=== PATIENT | female | born 1950 | race Caucasian/White ===

== ENCOUNTER 2019-11-28 08:52 | Outpatient (CLI) | payer MEDICARE, SELFPAY ==
--- NOTE | ~2019-11-28 | DEXA_ITS ---
BMD(1) Young-Adult(2) Age-Matched(3) Region (g/cm2) T-score Z-score WHO Classification L1 0.955 -1.5 0.4 Osteopenia L2 1.005 -1.7 0.2 Osteopenia L3 1.137 -0.6 1.3 Normal L4 1.167 -0.4 1.5 Normal L1-L4 1.071 -1.0 0.9 Normal Trend: L1-L4 Change vs Change vs Measured Age BMD(1) Baseline Previous Date [age]) (g/cm2) (%) (%) 11[age]28/2019 [age] 1.071 19.8* 4.9* 10[age]09/2017 66.8 1.021 14.2* 14.2* 04[birth year]19/2012 [age] 0.894 baseline - * - Indicates significant change based on 95% confidence interval. 1 - Statistically 68% of repeat scans fall within 1SD (+- 0.010 g/cm2 for AP Spine L1-L4) 2 - [place] (Combined NHANES (ages 20-30) / [place] (ages 20-40)) AP Spine Reference Population (v112) 3 - Matched for Age, Weight (females 25-100 kg), Ethnic 11 - World Health Organization - Definition of Osteoporosis and Osteopenia for Women: Normal = T-score at or above -1.0 SD; Osteopenia = T-score between -1.0 and -2.5 SD; Osteoporosis = T-score at or below -2.5 SD; (WHO definitions only apply when a young healthy Women reference database is used to determine T-scores.) Printed: 11/28/2019 9:49:24 AM (13.60)76:3.00:50.00:12.0 0.00:9.18 0.60x1.05 19.6:%Fat=29.0% 0.00:0.00 0.00:0.00 Filename: [id number] Scan Mode: Standard;OneScan 37.0 Apprity [id number] BMD(1) Young-Adult(2,7) Age-Matched(3) Region (g/cm2) T-score Z-score WHO Classification Neck Left 0.824 -1.5 0.3 Osteopenia Right 0.812 -1.6 0.2 Osteopenia Mean 0.818 -1.6 0.2 Osteopenia Difference 0.012 -0.1 -0.1 - Total Left 0.886 -1.0 0.7 Normal Right 0.802 -1.6 0.0 Osteopenia Mean 0.844 -1.3 0.3 Osteopenia Difference 0.084 -0.7 -0.7 - Hip [place] Length Comparison (mm) (Right = 97.0 mm) (Mean = 101.3 mm) (Left = 97.4 mm) Trend: Total Mean Change vs Change vs Measured Age BMD(1) Baseline Previous Date [age]years) (g/cm2) (%) (%) 11/28/2019 68.9 0.844 -1.6 -1.6 04/19/2012 61.3 0.858 baseline - 1 - Statistically 68% of repeat scans fall within 1SD (+- 0.010 g/cm2 for DualFemur Total) 2 - [place] (Combined NHANES (ages 20-30) / [place] (ages 20-40)) Femur Reference Population (v112) 3 - Matched for Age, Weight (females 25-100 kg), Ethnic 7 - DualFemur Total T-score difference is 0.7. Asymmetry is Mild. 11 - World Health Organization - Definition of Osteoporosis and Osteopenia for Women: Normal = T-score at or above -1.0 SD; Osteopenia = T-score between -1.0 and -2.5 SD; Osteoporosis = T-score at or below -2.5 SD; (WHO definitions only apply when a young healthy Women reference database is used to determine T-scores.) Printed: 11/28/2019 9:49:24 AM (13.60); Filename: [id number]; Right Femur; 17.5:%Fat=30.4%; Neck Angle (deg)= 60; Scan Mode: Standard 37.0 uGy; Left Femur; 16.5:%Fat=33.9%; Neck Angle (deg)= 64; Scan Mode: Standard 37.0 uGy [employer] [id number] Dear Isai Ly, Your patient Emilia Simpson completed a BMD test on 11/28/2019 using the [employer] DXA System (analysis version: 13.60) manufactured by [employer]. The following summarizes the results of our evaluation. PATIENT BIOGRAPHICAL: Name: Emilia Simpson
--- NOTE | ~2019-11-28 | MM_ITS ---
EXAMINATION: MM screening kyle BI w maddie HISTORY: Screening mammogram TECHNIQUE: Craniocaudal and mediolateral oblique 3-D tomosynthesis images were obtained and synthetic 2-D images were generated. CAD analysis was submitted and interpreted. COMPARISON: 11/25/2018, 11/05/2017, 09/16/2016 bilateral digital screening mammogram examinations BREAST PARENCHYMAL COMPOSITION: There are scattered areas of fibroglandular density. FINDINGS: There is no evidence of suspicious mass, calcification, or architectural distortion to sugg est malignancy in either breast. There has been no suspicious interval change. IMPRESSION: 1. No mammographic evidence of malignancy. 2. Recommend routine screening mammography in one year. BI-RADS Category 1: Negative Reviewed, dictated and finalized at location A.
== END 2019-11-28 08:53 | disposition home or self-care (01) ==
PROVIDERS: PCP Internal Medicine; Visit Provider Internal Medicine
DX: Z12.31 Encounter for screening mammogram for malignant neoplasm of breast (principal); M85.80 Other specified disorders of bone density and structure, unspecified site; Z78.0 Asymptomatic menopausal state
CPT/HCPCS: 77063; 77067; 77080

== ENCOUNTER 2019-12-21 09:48 | Outpatient (RCR) | payer MEDICARE, SELFPAY ==
--- NOTE | 2019-12-21 11:26 | PTOPEVAL ---
Thank you for referring Emilia Simpson to [facility].? The patient is scheduled to be seen for therapy? ____x/week for ___ weeks. Please review, sign, date and return this plan of care JJ. I agree with and certify that the following plan of care is medically necessary. Referring Physician Date Admitting Provider: Attending Provider: Isai Ly MD Referring Provider: *PT Outpatient Evaluation Start: 12/21/19 10:05 Freq: Status: Active Protocol: Document 12/21/19 10:05 VIOLETTE (Rec: 12/21/19 11:21 [email or web address]) Therapy Assessment Status Assessment Status Assessment Status Evaluation Evaluation Information Problem Diagnosis bilateral hip pain Onset 12/21/19 Subjective Information Pt. reports that she has had Query Text:As Reported By Patient/ hip and back pain for several Family years. She reports that she has low bone density and is borderline osteoporosis. She states that she has trouble crossing her legs, due to described pain at the greater trochanter. She describes no pain across the low back. 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 she states that her hip pain described on the trochanter is what is most problematic and is getting more severe. She states that her goal is to decrease her pain. Pain Assessment Pain Scale Pain Scale Used Numeric (1 - 10) Self Report Pain Assessment Bilateral Hip(s) Reported Pain Level 6 Lowest Pain Intensity 0 Greatest Pain Intensity 6 Pain Aggravating Factors Walking,Weight Bearing/ Standing Pain Score Pain Score 6: Self Report Cervical and Lumbar ROM Lumbar ROM Lumbar Flexion Active Floor Query Text:Hands to: Lumbar Extension (0-40) 30 Query Text:Active in Degrees Lumbar Lateral Flexion Right (0-40) 35 Query Text:Active in Degrees Lumbar Lateral Flexion Left (0-40) 35 Query Text:Active in Degrees Lower Extremity Muscle Strength Testing General Lower Extremity Strength Gross Lower Extremity Strength bilateral hip flexion 4+/5, right hip abduction 3+/5, left hip abduction 4-/5, bilateral
--- NOTE | 2019-12-21 17:28 | PTOPEVAL ---
Thank you for referring Emilia Simpson to [facility].? The patient is scheduled to be seen for therapy? ____x/week for ___ weeks. Please review, sign, date and return this plan of care JJ. I agree with and certify that the following plan of care is medically necessary. Referring Physician Date Admitting Provider: Attending Provider: Isai Ly MD Referring Provider: *PT Outpatient Evaluation Start: 12/21/19 10:05 Freq: Status: Active Protocol: Document 12/21/19 10:05 VIOLETTE (Rec: 12/21/19 11:21 [email or web address]) Therapy Assessment Status Assessment Status Assessment Status Evaluation Evaluation Information Problem Diagnosis bilateral hip pain Onset 12/21/19 Subjective Information Pt. reports that she has had Query Text:As Reported By Patient/ hip and back pain for several Family years. She reports that she has low bone density and is borderline osteoporosis. She states that she has trouble crossing her legs, due to described pain at the greater trochanter. She describes no pain across the low back. 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 she states that her hip pain described on the trochanter is what is most problematic and is getting more severe. She states that her goal is to decrease her pain. Pain Assessment Pain Scale Pain Scale Used Numeric (1 - 10) Self Report Pain Assessment Bilateral Hip(s) Reported Pain Level 6 Lowest Pain Intensity 0 Greatest Pain Intensity 6 Pain Aggravating Factors Walking,Weight Bearing/ Standing Pain Score Pain Score 6: Self Report Cervical and Lumbar ROM Lumbar ROM Lumbar Flexion Active Floor Query Text:Hands to: Lumbar Extension (0-40) 30 Query Text:Active in Degrees Lumbar Lateral Flexion Right (0-40) 35 Query Text:Active in Degrees Lumbar Lateral Flexion Left (0-40) 35 Query Text:Active in Degrees Lower Extremity Muscle Strength Testing General Lower Extremity Strength Gross Lower Extremity Strength bilateral hip flexion 4+/5, right hip abduction 3+/5, left hip abduction 4-/5, bilateral
== END 2020-01-26 08:52 | disposition home or self-care (01) ==
LOC: CHSPT 09:48
PROVIDERS: PCP Internal Medicine; Visit Provider Internal Medicine
DX: M25.552 Pain in left hip (principal); M25.551 Pain in right hip
CPT/HCPCS: 97014; 97110; 97161; G0283

== ENCOUNTER → 2020-06-25 00:17 | Outpatient (CLI) | payer MEDICARE, SELFPAY ==
[2020-06-25 19:33] LABS: SARS-CoV-2 RNA PCR Negative
== END ==
PROVIDERS: PCP Internal Medicine; Visit Provider Surgery
DX: Z01.812 Encounter for preprocedural laboratory examination (principal); Z20.822 Contact with and (suspected) exposure to COVID-19
CPT/HCPCS: C9803; U0003; U0005

== ENCOUNTER 2020-06-28 01:29 | Day surgery (SDC) | payer MEDICARE, SELFPAY ==
[2020-06-12 14:58] VITALS: BMI 22.8
[2020-06-28] MEDS: LACTATED RINGERS 1,000 ML 150 ML IV CONT (07:48)
[2020-06-28 07:50] VITALS: BP 143/74; PULSE 64; RESP 16; TEMP 36.4; O2SAT 100; BMI 24.8
--- NOTE | 2020-06-28 08:36 | WPDANESEPPF ---
Anes - Initial Pre Proc Eval Procedure: Operation Date: 06/28/20 08:45 Proposed Procedures p Esophagogastroduodenoscopy - Francisco J Ibarra DO Date/Time: 06/28/20 08:36 Surgeon: Francisco J Ibarra DO Pre Op Diagnosis: dysphagia Patient Data Age: 69 Gender: F Height: 5 ft 1 in Weight: 59.6 kg Last Vital Signs Temp 36.4 C L 06/28/20 07:50 Pulse 64 06/28/20 07:50 Resp 16 06/28/20 07:50 BP 143/74 H 06/28/20 07:50 Pulse Ox 100 06/28/20 07:50 Allergies Allergy/AdvReac Type Severity Reaction Status Date / Time No Known Allergies Allergy Verified 06/28/20 07:49 Home Medications Medication Instructions Recorded Confirmed Type estradiol 1 mg PO DAILY 06/12/20 06/12/20 History ibuprofen 600 mg PO DAILY PRN 06/12/20 06/12/20 History lisinopril-hydrochlorothiazide 1 tablet PO DAILY 06/12/20 06/12/20 History pravastatin 10 mg PO DAILY 06/12/20 06/12/20 History Patient hx anesthesia problems: post op nausea/vomiting Family hx anesthesia problems: none PMFSH Past Medical History Medical History Hyperlipidemia Hypertension Social History Social History Smoking status: Never smoker Alcohol intake: never Substance use type: does not use Living arrangements: with family Spiritual care concerns: No Anes - Eval Final PreProcedure Day of Procedure 06/28/20 08:36 Patient weight: normal Heart: regular rate and rhythm Lungs: clear to auscultation Airway: Mallampati scale class II Neurological: alert and oriented Last oral intake: >/= 8 hours ASA classification: II Emergent: no Anesthetic plan: proceed Anesthesia type and monitoring: general GIVS and standard monitoring Informed Consent: The patient's anesthetic plan and its attendant risks and benefits were discussed with the patient/family/POA. Questions were solicited and answers provided to the satisfaction of the patient/family/POA.
--- NOTE | 2020-06-28 08:50 | PM.IMHP ---
H&P: HPI History of Present Illness Date/Time: 06/28/20 08:50 Chief Complaint: Dysphagia Narrative: Emilia Simpson is a 69 year old female who presents with dysphagia with solids and liquids over the past month. She says if feels like she got a pill stuck, but she continues to have these symptoms. She denies hematemesis. Review of Systems Review of Systems: All systems reviewed & are unremarkable except as noted in HPI and below Constitutional: Constitutional: Denies chills, Denies fever(s), Denies headache(s) and Denies weight loss Eyes: Eyes: Denies change in vision ENT: Denies dizziness, Denies headache(s), Denies neck mass and Denies throat swelling Cardiovascular: Cardiovascular: Denies chest pain, Denies lightheadedness and Denies dyspnea Respiratory: Respiratory: Denies cough, Denies dyspnea and Denies wheezing Gastrointestinal: Gastrointestinal: Reports as per HPI, Denies nausea and Denies vomiting Genitourinary: Genitourinary: Denies hematuria and Denies dysuria Musculoskeletal: Musculoskeletal: Reports as per HPI Integumentary/Breasts: Skin/Breast: Reports as per HPI Neurologic: Denies dizziness and Denies headache(s) Allergic/Immunologic: Allergic/Immunologic: Denies throat swelling and Denies wheezing PMFSH Past Medical History Medical History Hyperlipidemia Hypertension Social History Social History Smoking status: Never smoker Alcohol intake: never Substance use type: does not use Living arrangements: with family Spiritual care concerns: No Meds Home Medications and Allergies Home Medications Medication Instructions Recorded Confirmed Type estradiol 1 mg PO DAILY 06/12/20 06/12/20 History ibuprofen 600 mg PO DAILY PRN 06/12/20 06/12/20 History lisinopril-hydrochlorothiazide 1 tablet PO DAILY 06/12/20 06/12/20 History pravastatin 10 mg PO DAILY 06/12/20 06/12/20 History Allergies Allergy/AdvReac Type Severity Reaction Status Date / Time No Known Allergies Allergy Verified 06/28/20 07:49 Vital Signs Vital Signs - 24 hr 06/28/20 07:50 Temperature 36.4 C L Pulse Rate 64 Respiratory Rate 16 Blood Pressure 143/74 H Pulse Oximetry 100 Exam Const: General: no acute distress and alert Orientation/consciousness: patient oriented x3 HENMT: Head: normocephalic and atraumatic Ears: hearing grossly normal bilaterally General nose exam: Normal nares present Mouth: Yes Normal oral and palatal mucosa present Eyes: Periorbital: periorbital findings normal Sclera: sclerae normal EOM: EOMs intact bilaterally Neck: Neck: normal visual inspection, no lymphadenopathy and trachea midline Chest: Chest palpation & inspection: normal inspection of the chest Resp: Effort & Inspection: normal respiratory effort Auscultation: clear to auscultation bilaterally Cardio: Jugular venous distension: no JVD Rate: regular rate Rhythm: regular rhythm Heart sounds: S1 normal heart sound present and S2 normal heart sound present Peripheral pulses: Peripheral pulses 2+ throughout GI: Inspection: normal to inspection GI Palp: Yes Soft to palpation, No Tenderness to palpation present (GI), No Guarding due to palpation present (GI) and No Rebound tenderness present Percussion: Yes normal to percussion Auscultation: normal bowel sounds : General: Yes no CVA tenderness Back/Spine/Pelvis: Back: no CVA tenderness Neuro: General: patient oriented x3, no focal motor deficits and CN's II-XI intact bilaterally Cognition (Neuro): normal cognition Speech: normal speech Motor exam (neuro): 5/5 motor strength present throughout Extrem: General: capillary refill normal and no clubbing, cyanosis or edema Assessment and Plan Assessment and plan (1) Dysphagia: Code(s): R13.10 - Dysphagia, unspecified Status: Acute Assessment and Plan: I have recomm
[2020-06-28 09:05] VITALS: BP 89/52; PULSE 65; RESP 18; O2SAT 96
[2020-06-28 09:15] VITALS: BP 127/80; PULSE 77; RESP 20; O2SAT 98
[2020-06-28 09:25] VITALS: BP 136/83; PULSE 62; RESP 20; O2SAT 100
== END 2020-06-28 09:41 | disposition home or self-care (01) ==
PROVIDERS: PCP Internal Medicine; Visit Provider Surgery
PROC: 0DJ08ZZ Inspection of Upper Intestinal Tract, Via Natural or Artificial Opening Endoscopic (ICD-10-PCS; CPT 43235; principal; 2020-06-28 08:45)
DX: R13.10 Dysphagia, unspecified (principal); K44.9 Diaphragmatic hernia without obstruction or gangrene; K29.70 Gastritis, unspecified, without bleeding; K31.7 Polyp of stomach and duodenum; I10 Essential (primary) hypertension; E78.5 Hyperlipidemia, unspecified
CPT/HCPCS: 43239; 87081; 88305; 88313; J2704; J7120

== ENCOUNTER 2020-11-07 11:19 | Outpatient (CLI) | payer MEDICARE, SELFPAY ==
--- NOTE | ~2020-11-07 | US_ITS ---
EXAMINATION: US venous doppler [facility] DATE: 11/07/2020 11:58 INDICATION: Lower limb edema. TECHNIQUE: Grayscale ultrasound images without and with compression and Doppler ultrasound images of the bilateral lower extremity veins were obtained. COMPARISON: None. FINDINGS: The visualized portions of right common femoral vein, profunda (deep) femoral vein, femoral vein, pop liteal vein, peroneal veins, posterior tibial veins, and greater saphenous vein outflow are patent. The visualized portions of left common femoral vein, profunda femoral vein, femoral vein, popliteal v ein, peroneal veins, posterior tibial veins, and greater saphenous vein outflow are patent. There is a moderate-sized Aguayo's cyst. IMPRESSION: 1. No deep venous thrombosis. 2. Moderate-sized left Aguayo's cyst. Reviewed, dictated and finalized at location A.
[2020-11-07 11:46] LABS: Add Urine Microscopic? NO; Appearance Urine Clear (Clear); Basophils Absolute Auto 0.05 K/mm3 (0.00-0.10); Basophils Percent Auto 0.9 % (0.0-1.0); Bilirubin Urine Negative (Negative); Blood Urine Negative (Negative); Color Urine Light Yellow (Yellow); Eosinophils Percent Auto 1.7 % (1.0-6.0); Glucose Urine UA Negative (Negative); Hematocrit 45.3 % (35.0-42.0); Hemoglobin 14.7 g/dL (11.7-13.8); Immature Granulocyte Absolute 0.02 K/mm3 (0.00-0.00); Immature Granulocyte Percent A 0.3 % (0.0-0.0); Ketones Urine Negative (Negative); Leukocyte Esterase Ur Negative (Negative); Lymphocytes Absolute Auto 1.47 K/mm3 (1.10-4.50); Lymphocytes Percent Auto 25.1 % (18.0-42.0); Mean Corpuscular HGB Conc 32.5 g/dL (32.0-36.0); Mean Corpuscular Hemoglobin 30.8 pg (27.0-31.0); Mean Platelet Volume 9.2 fl (9.2-11.8); Monocytes Absolute Auto 0.55 K/mm3 (0.10-0.90); Monocytes Percent Auto 9.4 % (2.0-11.0); Neutrophils Absolute Auto 3.7 K/mm3 (1.7-7.2); Neutrophils Percent Auto 62.6 % (50.0-70.0); Nitrate Urine Negative (Negative); Platelet Count Result 292 K/mm3 (150-420); Protein Urine Negative (Negative); Red Blood Count 4.77 M/mm3 (4.20-5.40); Red Cell Distribution Width 12.4 % (11.6-14.4); Urobilinogen Urine 0.2 mg/dL (0.2-1.0); White Blood Count 5.9 K/mm3 (4.8-10.8)
[2020-11-07 12:11] LABS: Alanine Aminotransferase 35 U/L (14-59); Albumin Level 4.1 g/dL (3.4-5.0); Alkaline Phosphatase 47 U/L (46-116); Anion Gap 13 mmol/L (8-16); Aspartate Amino Transferase 25 U/L (15-37); Bilirubin,Total 0.5 mg/dL (0.00-1.00); Blood Urea Nitrogen 19 mg/dL (7-18); Calcium 9.7 mg/dL (8.5-10.1); Carbon Dioxide 29 mmol/L (21-32); Chloride 104 mmol/L (98-108); Cholesterol 219 mg/dL (0-200); Estimated Glomerular Filt Rate > 60; Glucose 89 mg/dL (70-99); HDL Direct 95 mg/dL (40-60); LDL Cholesterol Calculated 111 mg/dL (<130); NT Pro B Type Natriuretic Pept 140 pg/mL (0-125); Osmolality Calculated 303 mOsm/kg (285-295); Potassium 3.7 mmol/L (3.5-5.1); Sodium 146 mmol/L (136-145); Thyroid Stimulating Hormone 3.22 uIU/mL (0.36-3.74); Total Protein 7.6 g/dL (6.4-8.2); Triglycerides 66 mg/dL (0-150)
== END 2020-11-07 11:20 | disposition home or self-care (01) ==
LOC: CHSLAB 11:24
PROVIDERS: PCP Internal Medicine; Visit Provider Internal Medicine
DX: E78.5 Hyperlipidemia, unspecified (principal); I10 Essential (primary) hypertension; R60.9 Edema, unspecified; I50.9 Heart failure, unspecified
CPT/HCPCS: 36415; 80053; 80061; 81003; 83880; 84443; 85025; 93970

== ENCOUNTER 2020-12-27 09:14 | Outpatient (CLI) | payer MEDICARE, SELFPAY ==
--- NOTE | ~2020-12-27 | MM_ITS ---
EXAMINATION: MM screening kyle BI w maddie HISTORY: Screening mammogram TECHNIQUE: Craniocaudal and mediolateral oblique 3-D tomosynthesis images were obtained and synthetic 2-D images were generated. CAD analysis was submitted and interpreted. COMPARISON: 11/28/2019, 11/25/2018, 11/05/2017 BREAST PARENCHYMAL COMPOSITION: There are scattered areas of fibroglandular density. FINDINGS: RIGHT BREAST: Focal asymmetry is present in the posterior third of the outer breast. LEFT BREAST: There is no evidence of suspicious mass, calcification, or architectural distortion to s uggest malignancy. There has been no significant interval change. IMPRESSION: 1. Right breast focal asymmetry. 2. Additional mammographic views and possible breast ultrasound are recommended. BI-RADS Category 0: Incomplete: Needs additional imaging evaluation. Reviewed, dictated and finalized at location A. IMPRESSION: 1. Right breast focal asymmetry. 2. Additional mammographic views and possible breast ultrasound are recommended . BI-RADS Category 0: Incomplete: Needs additional imaging evaluation.
== END 2020-12-27 09:15 | disposition home or self-care (01) ==
LOC: CHSIMG 09:18
PROVIDERS: PCP Internal Medicine; Visit Provider Internal Medicine
DX: Z12.31 Encounter for screening mammogram for malignant neoplasm of breast (principal)
CPT/HCPCS: 77063; 77067

== ENCOUNTER 2021-01-04 09:53 | Outpatient (CLI) | payer MEDICARE, SELFPAY ==
--- NOTE | ~2021-01-04 | MMUS_ITS ---
EXAMINATION: MM diagnostic kyle RT w maddie, US breast RT limited HISTORY: Follow-up right breast asymmetry TECHNIQUE: Additional 3-D tomosynthesis images of right were performed and synthetic 2-D images were generated. CAD analysis was submitted and interpreted. High resolution Limited right breast ultrasoun d was performed. COMPARISON: Comparison to multiple prior studies sequentially, with oldest reviewed study dated 08/12. BREAST PARENCHYMAL COMPOSITION: Breast composed of scattered areas of fibroglandular density FINDINGS: MAMMOGRAPHIC FINDINGS: There are no suspicious masses, calcifications or architectural distortion in the right breast to sug gest malignancy. ULTRASOUND: Limited right breast ultrasound: At 9:00, 6 cm from the nipple there is a 3 mm cyst. At 8:00, 6 cm fr om the nipple, there is a 3 mm cyst. At 6:00, 4 cm from the nipple, there is an oval circumscribed hy poechoic mass measuring 6 x 3 x 2 mm without posterior features or internal vascularity, likely benig n. IMPRESSION: 1. Probable benign right breast mass located at 6:00, 4 cm from the nipple. 2. Recommend 6 month follow-up limited right breast ultrasound BI-RADS category 3, probably benign findings. Reviewed, dictated and finalized at location A. IMPRESSION: 1. Probable benign right breast mass located at 6:00, 4 cm from the nipple. 2. Recommend 6 month follow-up limited right breast ultrasound BI-RADS category 3, probably benign findings.
== END 2021-01-04 09:54 | disposition home or self-care (01) ==
LOC: CHSIMG 09:55
PROVIDERS: PCP Internal Medicine; Visit Provider Internal Medicine
DX: R92.8 Other abnormal and inconclusive findings on diagnostic imaging of breast (principal)
CPT/HCPCS: 76642; 77061; 77065; G0279

== ENCOUNTER 2021-07-29 12:12 | Outpatient (CLI) | payer MEDICARE, OTHER, SELFPAY ==
--- NOTE | ~2021-07-29 | US_ITS ---
EXAMINATION: US breast RT limited HISTORY: Six-month follow-up for probably benign right breast masses TECHNIQUE: Limited right breast ultrasound is performed. FINDINGS: A 5 mm x 2 mm oval, circumscribed, parallel, hypoechoic mass with no posterior features or internal vascularity at the 6:00 location 4 cm from the nipple has decreased in size. A cyst at the 9 :00 location 6 cm from the nipple has also decreased in size. IMPRESSION: Right breast masses with decrease in size, consistent with benign findings. Routine screening mammogr aphy is recommended. BI-RADS Category 2: Benign finding(s). Reviewed, dictated and finalized at location A. IMPRESSION: Right breast masses with decrease in size, consistent with benign findings. Rou kumar screening mammography is recommended. BI-RADS Category 2: Benign finding(s).
== END 2021-07-29 12:13 | disposition home or self-care (01) ==
LOC: CHSIMG 12:18
PROVIDERS: PCP Internal Medicine; Visit Provider Internal Medicine
DX: R92.8 Other abnormal and inconclusive findings on diagnostic imaging of breast (principal)
CPT/HCPCS: 76642

== ENCOUNTER 2021-08-14 09:38 | Outpatient (CLI) | payer MEDICARE, OTHER, SELFPAY ==
--- NOTE | 2021-08-14 09:51 | ECG_ITS ---
Measurements Intervals [place] Rate: 61 P: 25 MS: 189 QRS: -43 QRSD: 110 T: 41 QT: 430 QTc: 435 Interpretive Statements SINUS RHYTHM MARKED LEFT AXIS DEVIATION [QRS AXIS < -30] PATTERN CONSISTENT WITH PULMONARY DISEASE ABNORMAL ECG NO PREVIOUS ECG AVAILABLE FOR COMPARISON Electronically Signed On 08-14-2021 15:53:38 CDT by Poncho Rooney M.D.
[2021-08-14 10:29] LABS: Anion Gap 4 mmol/L (8-16); Blood Urea Nitrogen 30 mg/dL (7-17); Calcium 9.6 mg/dL (8.4-10.2); Carbon Dioxide 31 mmol/L (22-30); Chloride 102 mmol/L (98-107); Estimated Glomerular Filt Rate > 60; Glucose 86 mg/dL (65-110); Potassium 3.2 mmol/L (3.4-5.0); Sodium 137 mmol/L (137-145)
== END 2021-08-14 09:39 | disposition home or self-care (01) ==
LOC: ANHSURGERY 09:42
PROVIDERS: Anesthesiology; PCP Internal Medicine; Visit Provider Urology
DX: Z01.812 Encounter for preprocedural laboratory examination (principal); N39.3 Stress incontinence (female) (male); I10 Essential (primary) hypertension; R94.31 Abnormal electrocardiogram [ECG] [EKG]
CPT/HCPCS: 36415; 80048; 87086; 93005

== ENCOUNTER → 2021-08-20 00:33 | Outpatient (CLI) | payer MEDICARE, OTHER, SELFPAY ==
[2021-08-20 11:52] LABS: SARS-CoV-2 RNA PCR Negative
== END ==
PROVIDERS: PCP Internal Medicine; Visit Provider Urology
DX: Z01.812 Encounter for preprocedural laboratory examination (principal); Z20.822 Contact with and (suspected) exposure to COVID-19
CPT/HCPCS: C9803; U0003; U0005

== ENCOUNTER 2021-08-23 01:09 | Day surgery (SDC) | payer MEDICARE, OTHER, SELFPAY ==
--- NOTE | 2021-08-09 13:51 | PC.NURSE ---
Addendum entered by Emilia Gonzalez RN 08/09/21 14:03: COVID TESTING 08/20/21 AT O900 Original Note: Report to the Outpatient Waiting Room, entrance under the green pavilion located off [facility], at time 0700 on date __08/23/21 . OR Time: __0900 . - You and your visitor will be asked a series of questions to screen for COVID 19 for your protection. - A mask is required within the hospital. Preoperative COVID Testing Requirements: No COVID Test needed if: (proof is required; if not received patient will have Rapid Test prior to entry) - Patient has received COVID Vaccine at least 14 days prior to procedure date or - Patient has positive COVID test result within last 90 days of surgery date. COVID Test needed if above criteria is not met If not COVID vaccinated a COVID test must be conducted within 72 hours of surgery and patient is asked to isolate self from time of testing until procedure. You will go to the [facility] for your COVID testing. The [facility] site is located at the corner of [address] [facility]. You will only be called if COVID results are positive and your surgeon may reschedule your elective surgery date. Patients may have clear liquids (water, carbonated beverages, clear teas, apple juice) until 3 hours prior to surgery with a maximum of 20 ounces. - No food from midnight until time of surgery - Infants may have breast milk until 4 hours before surgery, infant formula 6 hours prior to surgery. - Children will be allowed to drink immediately following surgery. If applicable, please bring a bottle or sippy cup to assist with drinking. Juice, water, soda, and popsicles are readily available. For infants on formula, please bring formula the day of surgery. Pacifiers are allowed. Take the following medications with a SIP of water the morning of surgery: ____NONE Medications to discontinue per physician __ALL VITAMINS AND SUPPLEMENTS 3 DAYS PRE OP Date to take last dose 08/19/21 Please no make-up, nail maori, hairspray, perfume, deodorant, or body powder the day of surgery. No jewelry (including any body piercings) or valuables the day of surgery, leave them at home. Please take a shower or bath the night before, or the morning of, surgery with an antibacterial soap. Wear comfortable, loose fitting clothing. Children are encouraged to wear pajamas. - Jewelry must be removed prior to entering the operating room. Rings and piercings that are not removed may be cut off. - The hospital will not accept responsibility for valuables. - Please leave all valuables, including medications, at home the day of surgery. If you are going home after surgery, a licensed driver wheelchair must drive you home. - NO public transportation without another adult. - We recommend that an adult stay with you for 24 hours following discharge. - We also recommend that you do not drive, make important decision, drink alcoholic beverages, or take any drugs that were not prescribed by your health care provider for at least 24 hours after your discharge time. For Pediatric surgeries, we recommend two adults accompany the child home (only one inside the building at this time). One visitor will be allowed to accompany the patient into the hospital. Patients visitor will be instructed to remain with patient at all times or leave the building. We will allow the visitor to come back to the postoperative area when patient is ready. Follow any additional instructions given to you from your surgeon. Telephone instructions given to _PATIENT and asked if any additional questions and then verbalized understanding. Patient advised to call surgeon office or pre surgery nurse liaison [phone] if any additional questions.
[2021-08-09 14:05] VITALS: BMI 23.8
--- NOTE | 2021-08-17 11:56 | PM.IMHP ---
H&P: HPI History of Present Illness Date/Time: 08/17/21 11:56 70 yo with JULIANA and rectocele Chief Complaint: JULIANA/rectocele Review of Systems Review of Systems: All systems reviewed & are unremarkable except as noted in HPI and below PMFSH Past Medical History Medical History Hyperlipidemia Hypertension Social History Social History Smoking status: Never smoker Alcohol intake: never Substance use type: does not use Spiritual care concerns: No Meds Home Medications and Allergies Home Medications Medication Instructions Recorded Confirmed Type estradiol 1 mg PO DAILY 06/12/20 08/09/21 History ibuprofen 600 mg PO DAILY PRN 06/12/20 08/09/21 History lisinopril-hydrochlorothiazide 1 tablet PO DAILY 06/12/20 08/09/21 History pravastatin 10 mg PO HS 06/12/20 08/09/21 History omeprazole 20 mg PO DAILY 30 Days #30 cap 06/28/20 08/09/21 Rx calcium citrate [Citracal] 200 mg PO DAILY 08/09/21 08/09/21 History cholecalciferol (vitamin D3) 125 mcg PO DAILY 08/09/21 08/09/21 History Allergies Allergy/AdvReac Type Severity Reaction Status Date / Time No Known Allergies Allergy Verified 08/09/21 13:43 Exam Narrative: A+O x3 rectocele to introitus + urethral mobility Assessment and Plan Assessment and plan (1) JULIANA (stress urinary incontinence, female): Code(s): N39.3 - Stress incontinence (female) (male) Status: Acute Assessment and Plan: urethral sling (2) Rectocele: Code(s): N81.6 - Rectocele Status: Acute Assessment and Plan: rectocele repair
--- NOTE | 2021-08-22 13:29 | WPDANESEPPF ---
Anes - Initial Pre Proc Eval Procedure: Operation Date: 08/23/21 09:00 Proposed Procedures p Rectocele Repair, - Maninder Burnett MD s Urethral Sling - Maninder Burnett MD Date/Time: 08/22/21 13:29 Surgeon: Maninder Burnett MD Pre Op Diagnosis: rectocele, stress incontinence Patient Data Age: 70 Gender: F Height: 1.54 m Weight: 56.25 kg Allergies Allergy/AdvReac Type Severity Reaction Status Date / Time No Known Allergies Allergy Verified 08/23/21 07:14 Home Medications Medication Instructions Recorded Confirmed Type estradiol 1 mg PO DAILY 06/12/20 08/23/21 History ibuprofen 600 mg PO DAILY PRN 06/12/20 08/23/21 History lisinopril-hydrochlorothiazide 1 tablet PO DAILY 06/12/20 08/23/21 History pravastatin 10 mg PO HS 06/12/20 08/23/21 History omeprazole 20 mg PO DAILY 30 Days #30 cap 06/28/20 08/23/21 Rx calcium citrate [Citracal] 200 mg PO DAILY 08/09/21 08/23/21 History cholecalciferol (vitamin D3) 125 mcg PO DAILY 08/09/21 08/23/21 History Patient hx anesthesia problems: post op nausea/vomiting Family hx anesthesia problems: none Results Review: All pre-operative results and documents have been reviewed as part of the pre-operative evaluation. [facility] Past Medical History Medical History (Updated 08/22/21 @ 13:29 by Tyler Adams DO) GERD (gastroesophageal reflux disease) Hyperlipidemia Hypertension PONV (postoperative nausea and vomiting) Surgical History Surgical History (Updated 08/22/21 @ 13:29 by Tyler Adams DO) History of hysterectomy Social History Social History Smoking status: Never smoker Alcohol intake: never Substance use type: does not use Living arrangements: with family Spiritual care concerns: No Anes - Eval Final PreProcedure Day of Procedure 08/22/21 13:29 Patient weight: normal Heart: regular rate and rhythm Lungs: clear to auscultation and normal air movement Airway: Mallampati scale class II Neurological: alert and oriented Last oral intake: >/= 8 hours ASA classification: II Emergent: no Anesthetic plan: proceed Anesthesia type and monitoring: general LMA and standard monitoring Results Review: All pre-operative results and documents have been reviewed as part of the pre-operative evaluation. Informed Consent: The patient's anesthetic plan and its attendant risks and benefits were discussed with the patient/family/POA. Questions were solicited and answers provided to the satisfaction of the patient/family/POA.
[2021-08-23] VITALS (9 sets, daily range): BP systolic 115–164; BP diastolic 72–90; PULSE 63–80; RESP 10–18; TEMP 36.1–36.3; O2SAT 97–100
--- NOTE | 2021-08-23 07:16 | WPDHPUPDATE1 ---
History and Physical Update Update Date/Time: 08/23/21 07:16 History and Physical has been reviewed, including an updated exam of the patient. There are NO changes in the patient's condition. Risks, benefits, and alternatives have been discussed and questions answered. Patient agrees to proceed with procedure.
[2021-08-23] MEDS: LACTATED RINGERS 1,000 ML 30 ML IV CONT ×2 (07:23→09:20)
[2021-08-23] MEDS: ceFAZolin 2 GM/D5W 50 ML 2 GM/50 ML BAG IVPB (08:24)
--- NOTE | 2021-08-23 09:21 | P.OP_ITS ---
Procedure Note - Detailed Date of Procedure 08/23/21 Pre-op Diagnosis rectocele, stress incontinence Post-op Diagnosis Same Procedure Performed Rectocele repair mid urethral sling cystoscopy Surgeon Maninder Burnett MD Indications This is a female with confirm stress urinary incontinence as well as rectocele. She desires surgical correction. She understands the risks of bleeding, infection, injury to the urinary tract or the bowel, vaginal mesh extrusion, urinary tract mesh erosion, obstructive voiding requiring a secondary procedure, hip and leg pain, dyspareunia, inability to improve overactive bladder symptoms, recurrence of prolapse, persistent prolapse.. She agrees to proceed. Description of Procedure She was correctly identified. Informed consent obtained. She was brought the operating room. She was given appropriate anesthesia. She was given appropriate perioperative antibiotics. A time-out performed. I placed Jeffers catheter. I placed a [place] retractor. She had a rectocele beyond the introitus very minimal cystocele. I anesthetized the posterior vaginal wall with local mixed with saline. I made a midline vaginal incision. I dissected out laterally and apically removing the mucosa off the underlying fascial structures. I then performed a classic plication rectocele repair with 0 Vicryl sutures. This an interrupted fashion. This resulted in excellent reduction of the rectocele and enterocele. I did not need open the enterocele sac. I then trimmed excess vaginal mucosa. I closed the vaginal mucosa with a running 2 0 Vicryl suture. There was excellent support of the rectocele without undue narrowing of the vagina. I elected to not do a perineal repair. I marked out the site of the inner thigh incisions. I anesthetized the skin and made those incisions. I anesthetized the anterior vaginal wall over the mid urethra. I made a 1 cm incision. I dissected out laterally taking great care not to injure the refilled vaginal wall. I passed the helical trocars. First on the left. Then on the right. I did this from the thigh incision towards the vaginal incision. The sling was connected to the trocars and brought out through the thigh incision. I tensioned the sling appropriately. I cut and the plastic sheaths. I then closed the incision with 2 0 Vicryl. On cystoscopy there is no tumors or surgical artifact. There was no surgical artifact in the urethra. I cut the excess sling material. Close incisions with glue. She was awakened and transferred to the PACU in stable condition. Implants Urethral sling Drains No Packing No Pathology None sent Complications No immediate complications Condition Stable Disposition PACU
[2021-08-23] MEDS: fentaNYL CITRATE INJ (*CRX) 100 MCG/2 ML VIAL 25 MCG IV PUSH ×4 (09:45→10:05)
[2021-08-23] MEDS: oxyCODONE HCL (*CRX) 5 MG TAB IR PO (10:57)
== END 2021-08-23 11:56 | disposition home or self-care (01) ==
PROVIDERS: PCP Internal Medicine; Visit Provider Urology
PROC: (CPT 57260; principal; 2021-08-23 09:00)
PROC: (CPT 57288; 2021-08-23 09:00)
DX: N39.3 Stress incontinence (female) (male) (principal); N81.6 Rectocele; K21.9 Gastro-esophageal reflux disease without esophagitis; I10 Essential (primary) hypertension; E78.5 Hyperlipidemia, unspecified
CPT/HCPCS: 57288; 57250; A9270; C1771; J0690; J1100; J2370; J2405; J2704; J3010; J7030; J7120; Q9968

== ENCOUNTER 2021-12-09 07:38 | Outpatient (CLI) | payer MEDICARE, OTHER, SELFPAY ==
--- NOTE | ~2021-12-09 | XR_ITS ---
EXAM: XR lumbar spine 2-3V DATE: 12/09/2021 13:54 HISTORY: chronic low back pain . COMPARISON: 01/12/2013. FINDINGS: Lumbar scoliosis. 5 nonrib-bearing lumbar-type vertebral bodies. Pedicles intact. 4 mm ante rolisthesis of L4 on 5 and L5 on S1. Vertebral body heights preserved. Concave endplate deformities a s can be seen with osteoporosis. Multilevel disc space narrowing and marginal osteophytosis. Multilev el severe facet sclerosis and hypertrophy with interspinous narrowing. No fracture or dislocation. IMPRESSION: Lumbar scoliosis. Grade 1 anterolistheses at L4-5 and L5-S1. Multilevel severe facet arth ropathy. Multilevel mild-moderate degenerative disc disease. Reviewed, dictated and finalized at location K. IMPRESSION: Lumbar scoliosis. Grade 1 anterolistheses at L4-5 and L5-S1. Multil evel severe facet arthropathy. Multilevel mild-moderate degenerative disc disea se.
--- NOTE | ~2021-12-09 | DEXA_ITS ---
Bone Density Report Name: FRANKLIN ROBERTS Age: 71 Sex: Female Ethnicity: White Date of : 1950 Indication: postmenopausal; screening for osteoporosis; cancer; hysterectomy; Referring Provider: Isai Ly Study: Bone densitometry was performed. Exam Date: December 09, 2021 Accession number: [id number] Bone Density: Region BMD T-score Z-score Classification AP Spine(L1, L2, L3) 0.837 -1.6 0.5 Osteopenia Femoral Neck (Left) 0.714 -1.2 0.7 Osteopenia Total Hip (Left) 0.824 -1.0 0.6 Normal Femoral Neck (Right) 0.685 -1.5 0.4 Osteopenia Total Hip (Right) 0.762 -1.5 0.1 Osteopenia Femoral Neck Mean 0.699 -1.3 0.6 Osteopenia Total Hip Mean 0.793 -1.2 0.4 Osteopenia World Health Organization criteria for BMD impression classify patients as: Normal (T-score at or above -1.0), Osteopenia (T-score between -1.0 and -2.5), or Osteoporosis (T-score at or below -2.5). Clinical Information Provided by Patient: Has used the following medications: Vitamin D, Calcium Has the following medical conditions: Cancer, Hysterectomy Patient maximum height was 60 Menopause Age: 49 No regular weight bearing exercise Drinks caffeinated beverages Onset of menses at age 12 Number of children 1 Impression: The patient has low bone mass, based on the Total Spine T-score. Discussion: BONE DENSITY IS LOW AT ONE OR MORE SKELETAL SITES. This patient's lowest T-score is low at one or more skeletal sites. It meets the World Health Organization's (WHO) criteria for ?low bone mass? (T-score between -1.0 and -2.5). The patient's 10-year risk of fracture as calculated by FRAX is less than the threshold where pharmacological therapy is recommended by the National Osteoporosis Foundation (NOF). However, all treatment decisions require clinical judgment and consideration of individual patient factors, including patient preferences, comorbidities, previous drug use, risk factors not captured in the FRAX model (e.g., frailty, falls, vitamin D deficiency, increased bone turnover, interval significant decline in bone density) and possible under or overestimation of fracture risk by FRAX. The patient should follow a healthful lifestyle (good nutrition with adequate calcium and vitamin D, and appropriate weight-bearing exercise). Follow-Up: Consider repeating this study in 2 to 3 years to reassess this patient's status, or sooner if there is some new clinical indication. Reported by: Dr. Arsalan Kincaid on 12/09/2021 2:07:00 PM. Reviewed, dictated and finalized at location ATrinh PEREA
[2021-12-09 08:02] LABS: Basophils Absolute Auto 0.06 K/mm3 (0.00-0.10); Eosinophils Absolute Auto 0.14 K/mm3 (0.02-0.50); Eosinophils Percent Auto 2.4 % (1.0-6.0); Hematocrit 44.3 % (35.0-42.0); Hemoglobin 14.6 g/dL (11.7-13.8); Immature Granulocyte Absolute 0.02 K/mm3 (0.00-0.00); Immature Granulocyte Percent A 0.3 % (0.0-0.0); Lymphocytes Absolute Auto 1.58 K/mm3 (1.10-4.50); Lymphocytes Percent Auto 26.8 % (18.0-42.0); Mean Corpuscular Hemoglobin 31.7 pg (27.0-31.0); Mean Corpuscular Volume 96.3 fL (78.0-102.0); Mean Platelet Volume 9.1 fl (9.2-11.8); Monocytes Absolute Auto 0.61 K/mm3 (0.10-0.90); Monocytes Percent Auto 10.3 % (2.0-11.0); Neutrophils Absolute Auto 3.5 K/mm3 (1.7-7.2); Neutrophils Percent Auto 59.2 % (50.0-70.0); Platelet Count Result 278 K/mm3 (150-420); Red Cell Distribution Width 12.2 % (11.6-14.4); White Blood Count 5.9 K/mm3 (4.8-10.8)
[2021-12-09 08:03] LABS: Add Urine Microscopic? NO; Appearance Urine Clear (Clear); Bilirubin Urine Negative (Negative); Blood Urine Negative (Negative); Color Urine Yellow (Yellow); Glucose Urine UA Negative (Negative); Ketones Urine Negative (Negative); Leukocyte Esterase Ur Negative (Negative); Nitrate Urine Negative (Negative); Protein Urine Negative (Negative); Specific Grav Ur >= 1.030 (1.010-1.020); Urobilinogen Urine 0.2 mg/dL (0.2-1.0); pH Urine 5.5 (5.0-8.0)
[2021-12-09 10:04] LABS: Alanine Aminotransferase 36 U/L (14-59); Alkaline Phosphatase 45 U/L (46-116); Anion Gap 10 mmol/L (8-16); Aspartate Amino Transferase 23 U/L (15-37); Bilirubin,Total 0.4 mg/dL (0.00-1.00); Blood Urea Nitrogen 26 mg/dL (7-18); Calcium 9.5 mg/dL (8.5-10.1); Carbon Dioxide 29 mmol/L (21-32); Chloride 104 mmol/L (98-108); Cholesterol 249 mg/dL (0-200); Estimated Glomerular Filt Rate 56; Glucose 82 mg/dL (70-99); HDL Direct 83 mg/dL (40-60); LDL Cholesterol Calculated 147 mg/dL (<130); Osmolality Calculated 299 mOsm/kg (285-295); Potassium 4.1 mmol/L (3.5-5.1); Sodium 143 mmol/L (136-145); Thyroid Stimulating Hormone 4.69 uIU/mL (0.36-3.74); Total Protein 6.8 g/dL (6.4-8.2); Triglycerides 97 mg/dL (0-150)
== END 2021-12-09 07:39 | disposition home or self-care (01) ==
LOC: CHSLAB 07:40
PROVIDERS: PCP Internal Medicine; Visit Provider Internal Medicine
DX: M54.50 Low back pain, unspecified (principal); I10 Essential (primary) hypertension; E78.5 Hyperlipidemia, unspecified; M85.80 Other specified disorders of bone density and structure, unspecified site; Z00.00 Encounter for general adult medical examination without abnormal findings; M81.0 Age-related osteoporosis without current pathological fracture
CPT/HCPCS: 36415; 72100; 77080; 80053; 80061; 81003; 84443; 85025

== ENCOUNTER 2021-12-17 10:47 | Outpatient (RCR) | payer MEDICARE, OTHER, SELFPAY ==
--- NOTE | 2021-12-17 12:41 | PTOPEVAL ---
Thank you for referring Emilia Simpson to [facility].? The patient is scheduled to be seen for therapy? ____x/week for ___ weeks. Please review, sign, date and return this plan of care JJ. I agree with and certify that the following plan of care is medically necessary. Referring Physician Date Admitting Provider: Attending Provider: Isai Ly MD Referring Provider: *PT Outpatient Evaluation Start: 12/17/21 11:01 Freq: Status: Active Protocol: Document 12/17/21 11:01 Rosanne (Rec: 12/17/21 11:54 [id number]) Therapy Assessment Status Assessment Status Assessment Status Evaluation Outpatient Past Medical History Neurological History Hx Neurological Disorders No Significant History Cardiovascular History Hx Hypercholesterolemia Yes Hx Hypertension Yes Respiratory History Hx COVID-19 Yes: CHILLS AND FATIGUE Gastrointestinal History Hx Gastroesophageal Reflux Disease Yes Genitourinary History Hx Other Genitourinary Disorders Yes: RECTOCELE ,STRESS INCONTINENCE Musculoskeletal History Hx Back Pain Yes Hematological History Hx Hematological Disorders No Significant History Endocrine History Hx Endocrine Disorders No Significant History HEENT History Hx HEENT Disorders No Significant History Integumentary History Hx Skin Disorders No Significant History Psychosocial History Hx Psychiatric Disorders No Significant History Pain History Has Past Pain Affected Your Daily Life Yes: BACK PAIN Anesthesia History Hx Post-Op Nausea/Vomiting Yes Evaluation Information Problem Diagnosis lower back pain, lumbago Additional Evaluation Detail oswestry = 36% functionally declined Subjective Information patient reports she is having Query Text:As Reported By Patient/ lower back pain that has not Family relieved for 2 years or more. she reports she has tried therapy in the past. she reports she has not goten relief from long term care phlebotomist either. she reports she has pain in the lower back and hips/buttock. she reports she has had xrays of the lower back and hips and reports she does not need a new hip. she reports she has increased pain with transition from sitting to standing. she reports she can get comfortable standing
--- NOTE | 2022-01-01 10:53 | PTOPEVAL1 ---
Evaluation Information Assessment Status Progress Diagnosis low back pain, lumbago Reported Pain Level Pain Score 3: Self Report Assessment PT Clinical Summary Pt. has attended a total of 8t treatment sessions focused on core stability and postural awareness. She has demonstrated decresaed reports of pain intensity, improved strength and improved gait mechanics. Despite these improvements continue to note some proximal l.e. weakness and impaired gait. Recommend continued skilled PT focusing on continuing to improve strength to optimize gait mechanics and posture. Plan of Care Interventions Manual Therapy,Therapeutic Activities,Therapeutic Exercise Treatment Frequency and Continue treatment 2x/week x 4 visits. Duration These treatments will address the objective and functional deficits as defined above. The patient will be advanced safely and appropriately in order for the patient to progress towards his/her prior level of function. Additional exercises will be introduced and as well as a comprehensive home exercise program upon discharge, if needed, ?to ensure carryover of functional gains achieved in the clinic. This treatment plan has been reviewed and agreement upon by the patient.
--- NOTE | 2022-01-14 10:18 | PTOPDC ---
Assessment and note entered by JT File, PT Evaluation Information Assessment Status Progress Diagnosis low back pain, lumbago Onset 12/10/21 Subjective Information patient reports she contiunes to have pain with transition from sitting to standing. she reports she also has difficulty baking as it is painful to reach forward and roll out a pie. she reports lifting is difficult as well. she reports she has pain lifting in front of her, but is able to lift behind her and and to her side. patient scores her oswestry with higher functional decline this date despite verbally noting improvement in her strength and awareness of deficits. Reported Pain Level Pain Score 2: Self Report Assessment PT Clinical Summary mr. solorzano presents to skilled PT services for her 12th skilled PT visit. as of this date, therapy has focused on hip strengthening and core stability exercises/activities. she continues to display scoliosis, hip weakness, pain, and abnormal gait. she has met goals for core strength and HEP education only. she would like to take a break from therapy at this time to continue to work on her exercises at home. she was educated on the need for a new order in the future to return to therapy if needed. Plan of Care Treatment Frequency and DC to independent HEP Duration
== END 2022-01-14 17:27 | disposition home or self-care (01) ==
LOC: CHSPT 10:47
PROVIDERS: PCP Internal Medicine; Visit Provider Internal Medicine
DX: M54.50 Low back pain, unspecified (principal)
CPT/HCPCS: 97110; 97140; 97161; 97530

== ENCOUNTER 2022-02-04 08:59 | Outpatient (CLI) | payer MEDICARE, OTHER, SELFPAY ==
--- NOTE | ~2022-02-04 | MR_ITS ---
EXAMINATION: MR lumbar spine wo con DATE: 02/04/2022 09:47 INDICATION: Lumbar spinal stenosis. Gait disturbance. TECHNIQUE: Magnetic resonance imaging (MRI) of the lumbar spine was performed without intravenous con trast. Sequences included sagittal T2-weighted FSE, sagittal T2-weighted FS FSE, sagittal T1-weighted FSE, and axial T2-weighted FSE. COMPARISON: Lumbar spine radiographs 12/09/2021 FINDINGS: There is 28 degrees dextroscoliosis of lumbar spine. There is 3 mm retrolisthesis of T12 on L1 and 3 mm anterolisthesis of L3 on L4, L4 on L5, and L5 on S1. Vertebral body heights are normal. There is severely decreased disc height from T12-L1 through L2-L3, moderately decreased disc height a t L3-L4 and L4-L5, and severely decreased disc height at L5-S1 with endplate remodeling. The distal s britany cord signal intensity is normal. The conus medullaris is at T12-L1. The following disc levels a re specifically discussed: L1-L2: The disc is bulging. There is mild bilateral facet joint osteoarthritis. There is mild bilater al neural foraminal stenosis. There is mild central canal stenosis. L2-L3: The disc is bulging and has an annular fissure. There is mild right and moderate left facet vanda int osteoarthritis. There is mild bilateral neural foraminal stenosis. There is mild central canal st enosis. L3-L4: The disc is bulging and has an annular fissure. There is severe bilateral facet joint osteoart hritis. There is mild bilateral neural foraminal stenosis. There is mild central canal stenosis. L4-L5: The disc is bulging. There is severe bilateral facet joint osteoarthritis. There is mild bilat eral neural foraminal stenosis. There is no central canal stenosis. L5-S1: The disc does not extend beyond the endplate margin. There is severe bilateral facet joint ost eoarthritis. There is mild right neural foraminal stenosis. There is no central canal stenosis. IMPRESSION: 1. Severe lumbar spondylosis. 2. Lumbar dextroscoliosis. Reviewed, dictated and finalized at location B.
== END 2022-02-04 09:00 | disposition home or self-care (01) ==
LOC: CHSIMG 09:01
PROVIDERS: PCP Internal Medicine; Visit Provider Internal Medicine
DX: M48.00 Spinal stenosis, site unspecified (principal); R26.9 Unspecified abnormalities of gait and mobility
CPT/HCPCS: 72148

== ENCOUNTER 2022-04-21 10:00 | Outpatient (RCR) | payer MEDICARE, OTHER, SELFPAY ==
--- NOTE | 2022-04-21 10:27 | PTOPEVAL1 ---
Assessment and note entered by Pablo Arthur Evaluation Information Assessment Status Evaluation Diagnosis lumbar spondylosis Onset 04/10/22 Subjective Information Pt. reports that she underwent recent low back injections which helped to reduce her pain. She reports that she is still concerned regarding weakness in her pelvis. she reports she still has a limp when she walks and would like to get rid of the limp. She reports that she can stand for about 1 hour before having to sit. 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 She reports that lifting is difficult due to weakness. She reports that her goal is to improve her strength so she can stand longer and be able to lift. Reported Pain Level Pain Score 0: Self Report Assessment PT Clinical Summary Pt. is a 71 year old female who enters the clinic due to pelvic weakness, especially at the hip abductors. She presents with impaired postural awareness and impaired gait on this date. Continued treatment is indicated in order to improve these areas to allow for improved standing endurance and improved gait mechanics. Plan of Care Interventions Electrical Stimulation,Gait Training,Hot Pack/Cold Pack,Manual Therapy,Neuro Re-education, Therapeutic Activities,Therapeutic Exercise,Self- Care/Home Management PT Services Indicated Yes Treatment Frequency and 2x/week x 8 visits Duration These treatments will address the objective and functional deficits as defined above. The patient will be advanced safely and appropriately in order for the patient to progress towards his/her prior level of function. Additional exercises will be introduced and as well as a comprehensive home exercise program upon discharge, if needed, ?to ensure carryover of functional gains achieved in the clinic. This treatment plan has been reviewed and agreement upon by the patient.
== END 2022-06-04 17:00 | disposition home or self-care (01) ==
LOC: CHSPT 10:00
PROVIDERS: Visit Provider Nurse Practitioner Family
DX: M47.896 Other spondylosis, lumbar region (principal)
CPT/HCPCS: 97110; 97112; 97161

== ENCOUNTER 2022-07-10 11:15 | Outpatient (CLI) | payer MEDICARE, SELFPAY ==
[2022-07-16 08:48] LABS: Barbiturates NEGATIVE ng/mL (<300); Benzodiazepines NEGATIVE ng/mL (<100); Cocaine Metabolite NEGATIVE ng/mL (<100); Codeine >10000 ng/mL (<50); Hydrocodone NEGATIVE ng/mL (<50); Hydromorphone NEGATIVE ng/mL (<50); Methadone Metabolite NEGATIVE ng/mL (<100); Morphine 2400 ng/mL (<50); Norhydrocodone NEGATIVE ng/mL (<50); Opiates POSITIVE ng/mL (<100); Oxidant NEGATIVE mcg/mL (<200); pH 5.2 (4.5-9.0)
== END 2022-07-10 11:16 | disposition home or self-care (01) ==
LOC: CHSLAB 11:17
PROVIDERS: PCP Internal Medicine; Visit Provider Nurse Practitioner Family
DX: G89.4 Chronic pain syndrome (principal)
CPT/HCPCS: 80299; 80361; G0480

== ENCOUNTER 2022-10-03 07:46 | Outpatient (CLI) | payer MEDICARE, SELFPAY ==
[2022-10-03 08:04] LABS: Basophils Absolute Auto 0.06 K/mm3 (0.00-0.10); Eosinophils Absolute Auto 0.18 K/mm3 (0.02-0.50); Hematocrit 42.9 % (35.0-42.0); Immature Granulocyte Absolute 0.01 K/mm3 (0.00-0.00); Immature Granulocyte Percent A 0.2 % (0.0-0.0); Lymphocytes Absolute Auto 1.47 K/mm3 (1.10-4.50); Lymphocytes Percent Auto 24.3 % (18.0-42.0); Mean Corpuscular HGB Conc 32.6 g/dL (32.0-36.0); Mean Corpuscular Hemoglobin 31.4 pg (27.0-31.0); Mean Corpuscular Volume 96.2 fL (78.0-102.0); Mean Platelet Volume 8.9 fl (9.2-11.8); Monocytes Absolute Auto 0.67 K/mm3 (0.10-0.90); Monocytes Percent Auto 11.1 % (2.0-11.0); Neutrophils Absolute Auto 3.7 K/mm3 (1.7-7.2); Neutrophils Percent Auto 60.4 % (50.0-70.0); Platelet Count Result 287 K/mm3 (150-420); Red Blood Count 4.46 M/mm3 (4.20-5.40); Red Cell Distribution Width 12.4 % (11.6-14.4); White Blood Count 6.1 K/mm3 (4.8-10.8)
[2022-10-03 08:07] LABS: Appearance Urine Clear (Clear); Bilirubin Urine Negative (Negative); Blood Urine Negative (Negative); Color Urine Light Yellow (Yellow); Glucose Urine UA Negative (Negative); Ketones Urine Negative (Negative); Leukocyte Esterase Ur Negative LEU/UL (Negative); Nitrate Urine Negative (Negative); Protein Urine Negative (Negative); Urobilinogen Urine 0.2 mg/dL (0.2-1.0)
[2022-10-03 08:12] LABS: Add Urine Microscopic? NO
[2022-10-03 08:42] LABS: Alanine Aminotransferase 44 U/L (14-59); Albumin Level 3.8 g/dL (3.4-5.0); Alkaline Phosphatase 48 U/L (46-116); Anion Gap 7 mmol/L (8-16); Aspartate Amino Transferase 27 U/L (15-37); Bilirubin,Total 0.5 mg/dL (0.00-1.00); Blood Urea Nitrogen 26 mg/dL (7-18); Calcium 9.3 mg/dL (8.5-10.1); Carbon Dioxide 30 mmol/L (21-32); Chloride 105 mmol/L (98-108); Cholesterol 244 mg/dL (0-200); Estimated Glomerular Filt Rate > 60; Glucose 90 mg/dL (70-99); HDL Direct 76 mg/dL (40-60); LDL Cholesterol Calculated 144 mg/dL (<130); Osmolality Calculated 298 mOsm/kg (285-295); Sodium 142 mmol/L (136-145); Total Protein 6.6 g/dL (6.4-8.2); Triglycerides 119 mg/dL (0-150)
== END 2022-10-03 07:47 | disposition home or self-care (01) ==
LOC: CHSLAB 07:48
PROVIDERS: PCP Internal Medicine; Visit Provider Internal Medicine
DX: I10 Essential (primary) hypertension (principal); E78.5 Hyperlipidemia, unspecified
CPT/HCPCS: 36415; 80053; 80061; 81003; 84443; 85025

== ENCOUNTER 2022-11-19 07:09 | Day surgery (SDC) | payer MEDICARE, OTHER, SELFPAY ==
[2022-10-07 10:51] VITALS: BMI 25.2
--- NOTE | 2022-11-18 08:16 | WPDANESEPPF ---
Anes - Initial Pre Proc Eval Procedure: Operation Date: 11/19/22 08:45 Proposed Procedures p Screening Colonoscopy - Francisco J Ibarra DO Date/Time: 11/18/22 08:16 Surgeon: Francisco J Ibarra DO Pre Op Diagnosis: Neoplasm Screening Patient Data Age: 71 Gender: F Height: 1.52 m Weight: 59 kg Allergies Allergy/AdvReac Type Severity Reaction Status Date / Time No Known Allergies Allergy Verified 11/19/22 07:24 Home Medications Medication Instructions Recorded Confirmed Type estradiol 1 mg tablet 1 mg PO DAILY 06/12/20 11/19/22 History ibuprofen 600 mg tablet 600 mg PO DAILY PRN Pain 06/12/20 11/19/22 History lisinopril 20 1 tablet PO DAILY 06/12/20 11/19/22 History mg-hydrochlorothiazide 12.5 mg tablet calcium citrate 200 mg (950 mg) 200 mg PO DAILY 08/09/21 11/19/22 History tablet cholecalciferol (vitamin D3) 125 125 mcg PO DAILY 08/09/21 11/19/22 History mcg (5,000 unit) tablet docusate sodium 100 mg capsule 100 mg PO BID #60 caps 08/23/21 11/19/22 Rx (Colace) Patient hx anesthesia problems: none Family hx anesthesia problems: none Results Review: All pre-operative results and documents have been reviewed as part of the pre-operative evaluation. [facility] Past Medical History Medical History (Updated 11/19/22 @ 08:17 by Francisco J Ibarra DO) GERD (gastroesophageal reflux disease) Hyperlipidemia Hypertension Osteoarthritis PONV (postoperative nausea and vomiting) Surgical History Surgical History (Updated 08/22/21 @ 13:29 by Tyler Adams DO) History of hysterectomy Social History Social History Smoking status: Never smoker Alcohol intake: never Substance use: never Substance use type: does not use Living arrangements: with family Spiritual care concerns: No Anes - Eval Final PreProcedure Day of Procedure 11/18/22 08:16 Patient weight: normal Heart: regular rate and rhythm Lungs: clear to auscultation and normal air movement Airway: Mallampati scale class II Neurological: alert and oriented Last oral intake: >/= 8 hours ASA classification: II Emergent: no Anesthetic plan: proceed Anesthesia type and monitoring: general GIVS and standard monitoring Results Review: All pre-operative results and documents have been reviewed as part of the pre-operative evaluation. Informed Consent: The patient's anesthetic plan and its attendant risks and benefits were discussed with the patient/family/POA. Questions were solicited and answers provided to the satisfaction of the patient/family/POA.
[2022-11-19 07:34] VITALS: BP 148/87; PULSE 71; RESP 18; TEMP 36.6; O2SAT 99; BMI 25.6
[2022-11-19] MEDS: LACTATED RINGERS 1,000 ML 150 ML IV CONT (07:48)
--- NOTE | 2022-11-19 08:16 | PM.IMHP ---
H&P: HPI History of Present Illness Date/Time: 11/19/22 08:16 Chief Complaint: screening for colorectal cancer Narrative: this is a 71-year-old woman who presents for colonoscopy. Her last colonoscopy was 5 years ago. She does have a history of polyps. She denies any family history of colon cancer. She denies any hematochezia or melena. Review of Systems Review of Systems: All systems reviewed & are unremarkable except as noted in HPI and below Constitutional: Constitutional: Denies chills, Denies fever(s), Denies headache(s) and Denies weight loss Eyes: Eyes: Denies change in vision ENT: Denies dizziness, Denies headache(s), Denies neck mass and Denies throat swelling Cardiovascular: Cardiovascular: Denies chest pain, Denies lightheadedness and Denies dyspnea Respiratory: Respiratory: Denies cough, Denies dyspnea and Denies wheezing Gastrointestinal: Gastrointestinal: Denies abdominal pain, Denies change in bowel habits, Denies nausea and Denies vomiting Genitourinary: Genitourinary: Denies hematuria and Denies dysuria Musculoskeletal: Musculoskeletal: Reports as per HPI Integumentary/Breasts: Skin/Breast: Reports as per HPI Neurologic: Denies dizziness and Denies headache(s) Allergic/Immunologic: Allergic/Immunologic: Denies throat swelling and Denies wheezing PMFSH Past Medical History Medical History (Updated 11/19/22 @ 08:17 by Francisco J Ibarra DO) GERD (gastroesophageal reflux disease) Hyperlipidemia Hypertension Osteoarthritis PONV (postoperative nausea and vomiting) Surgical History Surgical History (Updated 08/22/21 @ 13:29 by Tyler Adams DO) History of hysterectomy Social History Social History Smoking status: Never smoker Alcohol intake: never Substance use: never Substance use type: does not use Living arrangements: with family Spiritual care concerns: No Meds Home Medications and Allergies Home Medications Medication Instructions Recorded Confirmed Type estradiol 1 mg tablet 1 mg PO DAILY 06/12/20 11/19/22 History ibuprofen 600 mg tablet 600 mg PO DAILY PRN Pain 06/12/20 11/19/22 History lisinopril 20 1 tablet PO DAILY 06/12/20 11/19/22 History mg-hydrochlorothiazide 12.5 mg tablet calcium citrate 200 mg (950 mg) 200 mg PO DAILY 08/09/21 11/19/22 History tablet cholecalciferol (vitamin D3) 125 125 mcg PO DAILY 08/09/21 11/19/22 History mcg (5,000 unit) tablet docusate sodium 100 mg capsule 100 mg PO BID #60 caps 08/23/21 11/19/22 Rx (Colace) Allergies Allergy/AdvReac Type Severity Reaction Status Date / Time No Known Allergies Allergy Verified 11/19/22 07:24 Vital Signs Vital Signs - 24 hr 11/19/22 07:34 Temperature 36.6 C Pulse Rate 71 Respiratory Rate 18 Blood Pressure 148/87 H Pulse Oximetry 99 Oxygen Delivery Room Air Exam Const: General: no acute distress and alert Orientation/consciousness: patient oriented x3 HENMT: Head: normocephalic and atraumatic Ears: hearing grossly normal bilaterally Face/Nose/Sinus: Normal nares present Mouth: Yes Normal oral and palatal mucosa present Eyes: Periorbital: periorbital findings normal Sclera: sclerae normal EOM: EOMs intact bilaterally Neck: Neck: normal visual inspection, no lymphadenopathy and trachea midline Chest: Chest palpation & inspection: normal inspection of the chest Resp: Effort & Inspection: normal respiratory effort Auscultation: clear to auscultation bilaterally Cardio: Jugular venous distension: no JVD Rate: regular rate Rhythm: regular rhythm Heart sounds: S1 normal heart sound present and S2 normal heart sound present Peripheral pulses: Peripheral pulses 2+ throughout GI: Inspection: normal to inspection GI Palp: Yes Soft to palpation, No Tenderness to palpation present (GI), No Guarding due to palpation present (GI) and No Rebound tenderness present Percussion: Yes
[2022-11-19 09:11] VITALS: BP 102/64; PULSE 67; RESP 18; O2SAT 96
[2022-11-19 09:21] VITALS: BP 111/68; PULSE 92; RESP 18; O2SAT 96
[2022-11-19 09:31] VITALS: BP 124/84; PULSE 77; RESP 18; O2SAT 98
--- NOTE | 2022-11-19 12:53 | WPDANESPN ---
Anes - Prog Note Post-Op Date/Time: 11/19/22 12:53 Cardiovascular status: normal Respiratory status: normal Airway patency: baseline Mental status: baseline Post-Op hydration status: normal Vital Signs: Last Vital Signs Temp 36.6 C 11/19/22 07:34 Pulse 77 11/19/22 09:31 Resp 18 11/19/22 09:31 BP 124/84 11/19/22 09:31 Pulse Ox 98 11/19/22 09:31 O2 Del Method Room Air 11/19/22 09:31 Pain Score (VAS): 0 I/O: Intake & Output 11/18/22 11/19/22 11/19/22 23:59 07:59 15:59 Intake Total 500 Balance 500 Post-procedural complaints: none Patient Feedback: Patient satisfied with anesthetic care.
== END 2022-11-19 09:45 | disposition home or self-care (01) ==
PROVIDERS: PCP Internal Medicine; Visit Provider Surgery
PROC: 0DJD8ZZ Inspection of Lower Intestinal Tract, Via Natural or Artificial Opening Endoscopic (ICD-10-PCS; CPT 45378; principal; 2022-11-19 08:45)
DX: Z12.11 Encounter for screening for malignant neoplasm of colon (principal)
CPT/HCPCS: 45378

== ENCOUNTER 2023-04-03 09:23 | Outpatient (CLI) | payer MEDICARE, OTHER, SELFPAY ==
--- NOTE | ~2023-04-03 | XR_ITS ---
Clinical Indication: Preoperative evaluation PA and lateral views of the chest: Comparison: 10/20/2007 Findings: The lungs are clear, without evidence of focal consolidation or pleural effusion. Cardiome diastinal silhouette is within normal limits. Bones and soft tissues are unremarkable. Impression: Normal chest. Reviewed, dictated and finalized at [facility]. RN ARCHITECT Impression: Normal chest.
[2023-04-03 10:09] LABS: Basophils Absolute Auto 0.05 K/mm3 (0.00-0.10); Basophils Percent Auto 0.9 % (0.0-1.0); Eosinophils Absolute Auto 0.14 K/mm3 (0.02-0.50); Eosinophils Percent Auto 2.4 % (1.0-6.0); Hemoglobin 14.4 g/dL (11.7-13.8); Immature Granulocyte Absolute 0.03 K/mm3 (0.00-0.00); Immature Granulocyte Percent A 0.5 % (0.0-0.0); Lymphocytes Absolute Auto 1.37 K/mm3 (1.10-4.50); Lymphocytes Percent Auto 23.3 % (18.0-42.0); Mean Corpuscular HGB Conc 32.7 g/dL (32.0-36.0); Mean Corpuscular Volume 94.6 fL (78.0-102.0); Monocytes Absolute Auto 0.52 K/mm3 (0.10-0.90); Monocytes Percent Auto 8.8 % (2.0-11.0); Neutrophils Absolute Auto 3.8 K/mm3 (1.7-7.2); Neutrophils Percent Auto 64.1 % (50.0-70.0); Platelet Count Result 312 K/mm3 (150-420); Red Blood Count 4.65 M/mm3 (4.20-5.40); Red Cell Distribution Width 12.8 % (11.6-14.4); White Blood Count 5.9 K/mm3 (4.8-10.8)
[2023-04-03 10:25] LABS: Partial Thromboplastin Time 28.8 SEC (23.90-30.70); Prothrombin Time 10.5 Seconds (9.50-12.10)
[2023-04-03 10:50] LABS: Alanine Aminotransferase 50 U/L (14-59); Albumin Level 3.9 g/dL (3.4-5.0); Alkaline Phosphatase 46 U/L (46-116); Anion Gap 8 mmol/L (8-16); Aspartate Amino Transferase 31 U/L (15-37); Bilirubin,Total 0.3 mg/dL (0.00-1.00); Blood Urea Nitrogen 30 mg/dL (7-18); Calcium 9.5 mg/dL (8.5-10.1); Carbon Dioxide 30 mmol/L (21-32); Chloride 103 mmol/L (98-108); Cholesterol 249 mg/dL (0-200); Estimated Glomerular Filt Rate 47; Glucose 91 mg/dL (70-99); HDL Direct 91 mg/dL (40-60); LDL Cholesterol Calculated 143 mg/dL (<130); Osmolality Calculated 298 mOsm/kg (285-295); Potassium 4.1 mmol/L (3.5-5.1); Sodium 141 mmol/L (136-145); Total Protein 6.9 g/dL (6.4-8.2); Triglycerides 77 mg/dL (0-150)
== END 2023-04-03 09:24 | disposition home or self-care (01) ==
PROVIDERS: PCP Internal Medicine; Visit Provider Internal Medicine
DX: I10 Essential (primary) hypertension (principal); M54.50 Low back pain, unspecified; E78.5 Hyperlipidemia, unspecified; M54.51 Vertebrogenic low back pain; I45.19 Other right bundle-branch block
CPT/HCPCS: 36415; 71046; 80053; 80061; 85025; 85610; 85730; 93005

== ENCOUNTER 2023-05-05 13:51 | Outpatient (CLI) | payer MEDICARE, OTHER, SELFPAY ==
--- NOTE | ~2023-05-05 | MM_ITS ---
EXAMINATION: MM screening [facility] BI w maddie HISTORY: Screening mammogram TECHNIQUE: Craniocaudal and mediolateral oblique 3-D tomosynthesis images were obtained and synthetic 2-D images were generated. CAD analysis was submitted and interpreted. COMPARISON: 01/04/2021, 12/27/2020, 11/28/2019 BREAST PARENCHYMAL COMPOSITION: There are scattered areas of fibroglandular density. FINDINGS: No suspicious mass, calcification, or architectural distortion are identified in either sarah ast to suggest malignancy. There has been no suspicious interval change. IMPRESSION: 1. No mammographic evidence of malignancy. 2. Recommend routine screening mammography in one year. BI-RADS Category 1: Negative Reviewed, dictated and finalized at location A. INSPECTOR
== END 2023-05-05 13:52 | disposition home or self-care (01) ==
LOC: CHSIMG 13:52
PROVIDERS: PCP Internal Medicine; Visit Provider Internal Medicine
DX: Z12.31 Encounter for screening mammogram for malignant neoplasm of breast (principal)
CPT/HCPCS: 77063; 77067

== ENCOUNTER 2023-10-20 08:14 | Outpatient (CLI) | payer MEDICARE, SELFPAY ==
[2023-10-20 08:30] LABS: Appearance Urine Clear (Clear); Bilirubin Urine Negative (Negative); Blood Urine Negative (Negative); Color Urine Light Yellow (Yellow); Glucose Urine UA Negative (Negative); Ketones Urine Negative (Negative); Leukocyte Esterase Ur Negative (Negative); Nitrate Urine Negative (Negative); Protein Urine Negative (Negative); Specific Grav Ur <= 1.005 (1.010-1.020); Urobilinogen Urine 0.2 mg/dL (0.2-1.0); pH Urine 5.5 (5.0-8.0)
[2023-10-20 08:35] LABS: Add Urine Microscopic? NO
[2023-10-20 09:00] LABS: Alanine Aminotransferase 39 U/L (14-59); Alkaline Phosphatase 55 U/L (46-116); Anion Gap 10 mmol/L (4-12); Aspartate Amino Transferase 26 U/L (15-37); Bilirubin,Total 0.7 mg/dL (0.00-1.00); Blood Urea Nitrogen 19 mg/dL (7-18); Calcium 9.4 mg/dL (8.5-10.1); Carbon Dioxide 28 mmol/L (21-32); Chloride 103 mmol/L (98-108); Cholesterol 202 mg/dL (0-200); Estimated Glomerular Filt Rate > 60; Glucose 88 mg/dL (70-99); HDL Direct 95 mg/dL (40-60); LDL Cholesterol Calculated 97 mg/dL (<130); Osmolality Calculated 293 mOsm/kg (285-295); Potassium 3.8 mmol/L (3.5-5.1); Sodium 141 mmol/L (136-145); Total Protein 7.1 g/dL (6.4-8.2); Triglycerides 49 mg/dL (0-150)
== END 2023-10-20 08:15 | disposition home or self-care (01) ==
LOC: CHSLAB 08:15
PROVIDERS: PCP Internal Medicine; Visit Provider Internal Medicine
DX: I10 Essential (primary) hypertension (principal); E78.5 Hyperlipidemia, unspecified
CPT/HCPCS: 36415; 80053; 80061; 81003

== ENCOUNTER 2023-10-23 10:05 | Outpatient (CLI) | payer MEDICARE, OTHER, SELFPAY ==
--- NOTE | ~2023-10-23 | XR_ITS ---
XR sacroiliac joints min 3V Ordering provider: Marisol Arzola, ARCHITECTURE CONSULTANT History: . Chronic pain in L Hip, Low Back Pain. Hx of scoliosis arth . Comparison: None. FINDINGS: BONES: No acute fracture or dislocation. JOINTS: The bilateral sacroiliac joint spaces appear well maintained. No bony fusion of the sacroilia c joints or bony erosions. Dextroscoliosis. SOFT TISSUES: Unremarkable. IMPRESSION: NO ACUTE OSSEOUS ABNORMALITY. NORMAL SACROILIAC JOINTS. Reviewed, dictated and finalized at location A.
--- NOTE | ~2023-10-23 | XR_ITS ---
XR hip LT min 2V Ordering provider: Marisol Arzola, CHIP LOFT WORKER History: . Chronic pain in L Hip. Hx of scoliosis arthritis . Comparison: January 12, 2013 FINDINGS: BONES: No acute fracture or dislocation. HIP JOINT SPACES: Mild osteoarthritic changes. SACROILIAC JOINT SPACES/LUMBAR SPINE: The sacroiliac joint spaces are normal. Mild degenerative perrin es of the visualized lower lumbar spine. PUBIC SYMPHYSIS: Normal. SOFT TISSUES: Normal. IMPRESSION: No acute osseous abnormality pelvis and left hip. Reviewed, dictated and finalized at location A.
== END 2023-10-23 10:06 | disposition home or self-care (01) ==
LOC: CHSIMG 10:10
PROVIDERS: PCP Internal Medicine; Visit Provider Nurse Practitioner Family
DX: M25.552 Pain in left hip (principal)
CPT/HCPCS: 72202; 73502

== ENCOUNTER 2024-02-11 15:31 | Outpatient (CLI) | payer MEDICARE, OTHER, SELFPAY ==
--- NOTE | ~2024-02-11 | XR_ITS ---
CHEST RADIOGRAPH, PA AND LATERAL CLINICAL HISTORY: Pre Op Px . COMPARISON: 04/03/2023 TECHNIQUE: PA and lateral views of the chest. FINDINGS The cardiomediastinal silhouette is unremarkable. The lungs are clear. Visualized osseous structures and soft tissues are unremarkable. IMPRESSION: No focal infiltrate or effusion. Reviewed, dictated and finalized at location A.
--- NOTE | 2024-02-11 15:52 | ECG_ITS ---
Test Date: 2024-02-11 16:07:21 Measurements Intervals [place] Rate: 60 P: 58 ND: 198 QRS: -52 QRSD: 117 T: 63 QT: 433 QTc: 433 Interpretive Statements SINUS RHYTHM INCOMPLETE RIGHT BUNDLE BRANCH BLOCK [90+ ms QRS DURATION, TERMINAL R IN V1/V2, 40+ ms S IN I/aVL/V4/V5/V6] LEFT ANTERIOR FASCICULAR BLOCK [QRS AXIS <= -45, QR IN I, RS IN II] ABNORMAL ECG No previous ECG available for comparison Electronically Signed On 02-12-2024 12:43:33 CDT by Pablo Bhatt M.D.
[2024-02-11 15:58] LABS: Add Urine Microscopic? NO; Appearance Urine Clear (Clear); Bilirubin Urine Negative (Negative); Blood Urine Negative (Negative); Color Urine Light Yellow (Yellow); Glucose Urine UA Negative (Negative); Hematocrit 44.5 % (35.0-42.0); Hemoglobin 14.6 g/dL (11.7-13.8); Ketones Urine Negative (Negative); Leukocyte Esterase Ur Negative LEU/UL (Negative); Mean Corpuscular HGB Conc 32.8 g/dL (32-36); Mean Corpuscular Hemoglobin 30.6 pg (27.0-31.0); Mean Corpuscular Volume 93.3 fL (78.0-102.0); Mean Platelet Volume 9.2 fl (9.2-11.8); Nitrate Urine Negative (Negative); Platelet Count Result 341 K/mm3 (150-420); Protein Urine Negative (Negative); Red Blood Count 4.77 M/mm3 (4.20-5.40); Red Cell Distribution Width 12.8 % (11.6-14.4); Specific Grav Ur 1.025 (1.010-1.020); Urobilinogen Urine 0.2 mg/dL (0.2-1.0); White Blood Count 11.1 K/mm3 (4.8-10.8); pH Urine 5.5 (5.0-8.0)
[2024-02-11 16:13] LABS: INR 0.9; Partial Thromboplastin Time 26.4 Sec (23.9-30.70); Prothrombin Time 10.2 Seconds (9.50-12.1)
[2024-02-11 16:16] LABS: Alanine Aminotransferase 46 U/L (14-59); Albumin Level 3.9 g/dL (3.4-5.0); Alkaline Phosphatase 80 U/L (46-116); Anion Gap 8 mmol/L (4-12); Aspartate Amino Transferase 29 U/L (15-37); Bilirubin,Total 0.6 mg/dL (0.00-1.00); Blood Urea Nitrogen 27 mg/dL (7-18); Calcium 9.8 mg/dL (8.5-10.1); Carbon Dioxide 30 mmol/L (21-32); Chloride 102 mmol/L (98-108); Estimated Glomerular Filt Rate 50; Glucose 105 mg/dL (70-99); Osmolality Calculated 295 mOsm/kg (285-295); Potassium 3.6 mmol/L (3.5-5.1); Sodium 140 mmol/L (136-145); Total Protein 7.2 g/dL (6.4-8.2)
== END 2024-02-11 15:32 | disposition home or self-care (01) ==
LOC: CHSLAB 15:35
PROVIDERS: PCP Internal Medicine; Visit Provider Internal Medicine
DX: Z01.818 Encounter for other preprocedural examination (principal); I45.19 Other right bundle-branch block; I44.4 Left anterior fascicular block; R94.31 Abnormal electrocardiogram [ECG] [EKG]
CPT/HCPCS: 36415; 71046; 80053; 81003; 85027; 85610; 85730; 93005

== ENCOUNTER 2024-05-26 14:25 | Outpatient (CLI) | payer MEDICARE, OTHER, SELFPAY ==
--- NOTE | ~2024-05-26 | MM_ITS ---
EXAMINATION: MM screening [facility] BI w maddie HISTORY: Screening TECHNIQUE: Craniocaudal and mediolateral oblique 3-D tomosynthesis images were obtained and synthetic 2-D images were generated. CAD analysis was submitted and interpreted. COMPARISON: Comparison to multiple prior studies sequentially, with oldest reviewed study dated 09/2017. BREAST PARENCHYMAL COMPOSITION: There are scattered areas of fibroglandular density. FINDINGS: There is no evidence of suspicious mass, calcification, or architectural distortion to sugg est malignancy in either breast. There has been no suspicious interval change. IMPRESSION: 1. No mammographic evidence of malignancy. 2. Recommend routine screening mammography in one year. BI-RADS Category 1: Negative Reviewed, dictated and finalized at location A. ARD DISHWASHER
--- OUTSIDE RECORDS SUMMARY | 2024-05-27 05:43 | XMS_ITS ---
Author Organization 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 Essential Hypertension Unknown RAMON St AURAL P PUBLIC RELATIONS MANAGER-FPA, SENIOR SAFETY SUPPORT MANAGER-BC Active Last Documented On 2 12:01PM ; [facility] Plan of Treatment Findings Encounter Date PLAN [Use for s.o.a.p. note free text] PAIN MANAGEMENT FOLLOW UP with RAMON St AYSHA PUBLIC RELATIONS MANAGER-FPA, SENIOR SAFETY SUPPORT MANAGER-BC 07/10/2022 Last Documented On 3 11:02AM ; [facility] PLAN [Use for s.o.a.p. note free text] TELEHEALTH with RAMON St AYSHA PUBLIC RELATIONS MANAGER-FPA, SENIOR SAFETY SUPPORT MANAGER-BC 05/14/2022 Last Documented On 3 7:55PM ; [facility] PLAN [Use for s.o.a.p. note free text] [Patient Encounter] with RAMON St AYSHA PUBLIC RELATIONS MANAGER-FPA, SENIOR SAFETY SUPPORT MANAGER-BC 04/10/2022 Last Documented On 2 9:40AM ; [facility] Pending Tests Order Diagnosis Results Due Ordering P rovider X-ray - OUTSIDE XRAYS SACROL ILLIAC JOINTS Low back pain, unspecified 10/21/23 RAMON OLMSTEAD PUBLIC RELATIONS MANAGER-FPA, SENIOR SAFETY SUPPORT MANAGER-BC Last Documented On 4 8:49AM ; [facility] X-ray - OUTSIDE XRAYS HIP UNI 2 VIEWS LEFT Pain in left hip 10/21/23 RAMON OLMSTEAD PUBLIC RELATIONS MANAGER-FPA, SENIOR SAFETY SUPPORT MANAGER-BC Last Documented On 4 8:49AM ; [facility] Referrals To Diagnosis Pain Management [facility] - [address] [place] [id number] - Spinal stenosis, lumbar region with neurogenic claudication Note: consent for bilateral L4-5 transforaminal epidural steroid injection under fluoroscopy Last Documented On 3 3:16PM ; [facility] Education and Decision Aids were provided during visit for: Pill Count: two Tramadol Last Documented On 4 8:35AM ; [facility] Pill Count: two Tramadol Last Documented On 4 1:21PM ; [facility] Pill Count: 20 Tramadol Last Documented On 4 8:32AM ; [facility] Pill Count: twelve Tramadol Last Documented On 4 9:15AM ; [facility] Pill Count: Tramadol Last Documented On 3 11:09AM ; [facility] Pill Count: Patient did not bring pain medication to appointment for pill count, per policy. Advised in order to continue to safely prescribe opioids, medication must be brought to each appointment Last Documented On 3 11:10AM ; [facility] Pill Count: Tramadol Last Documented On 3 2:34PM ; [facility] Pill Count: Tramadol Last Documented On 3 3:23PM ; [facility] Pill Count: Acetaminophen wi th codeine Last Documented On 3 1:41PM ; [facility] Pill Count: ten Last Documented On 3 10:37AM ; [facility] Pill Count: four Last Documented On 3 10:29AM ; [facility] Assessments Includes: Assessments for all patient encounters Findings Encounter Date Chronic pain syndrome TELEHEALTH with RAMON OLMSTEAD PUBLIC RELATIONS MANAGER-FPA, SENIOR SAFETY SUPPORT MANAGER-BC 10/21/2023 Last Documented On 4 8:59AM ; [facility] Dextroscoliosis TELEHEALTH with RAMON St AYSHA A PRN-FPA, SENIOR SAFETY SUPPORT MANAGER-BC 10/21/2023 Last Documented On 4 8:59AM ; [facility] Left Hip pain TELEHEALTH with RAMON G AYSHA A PRN-FPA, SENIOR SAFETY SUPPORT MANAGER-BC 10/21/2023 Last Documented On 4 8:59AM ; [facility] Low back pain TELEHEALTH with RAMON G AYSHA A PRN-FPA, SENIOR SAFETY SUPPORT MANAGER-BC 10/21/2023 Last Documented On 4 8:59AM ; [facility] Lumbar disc degeneration TELEHEALTH with RAMON St AYSHA PUBLIC RELATIONS MANAGER-FPA, SENIOR SAFETY SUPPORT MANAGER-BC 10/21/2023 Last Documented On 4 8:59AM ; [facility] Lumbar spondylosis TELEHEALTH with RAMON St KUL P PUBLIC RELATIONS MANAGER-FPA, SENIOR SAFETY SUPPORT MANAGER-BC 10/21/2023 Last Documented On 4 8:59AM ; [facility] Lumbar stenosis TELEHEALTH with RAMON St AYSHA A PRN-FPA, SENIOR SAFETY SUPPORT MANAGER-BC 10/21/2023 Last Documented On 4 8:59AM ; [facility] Vertebrogenic low back pain TELEHEALTH w ith RAMON St AYSHA PUBLIC RELATIONS MANAGER-FPA, SENIOR SAFETY SUPPORT MANAGER-BC 10/21/2023 Last Documented On 4 8:59AM ; [facility] Chronic pain syndrome PAIN MANAGEMENT FO LLOW UP with RAMON G AYSHA PUBLIC RELATIONS MANAGER-FPA, SENIOR SAFETY SUPPORT MANAGER-BC 09/09/2023 Last Documented On 4 1:51PM ; [facility] Dextroscoliosis PAIN MANAGEMENT FOLL OW UP with RAMON G AYSHA PUBLIC RELATIONS MANAGER-FPA, SENIOR SAFETY SUPPORT MANAGER-BC 09/09/2023 Last Documented On 4 1:51PM ; [facility] Low back pain PAIN MANAGEMENT FOLL OW UP with RAMON G AYSHA PUBLIC RELATIONS MANAGER-FPA, SENIOR SAFETY SUPPORT MANAGER-BC 09/09/2023 Last Documented On 4 1:51PM ; [facility] Lumbar disc degeneration PAIN MANAGEMENT FOLLOW UP with RAMON St AYSHA PUBLIC RELATIONS MANAGER-FPA, SENIOR SAFETY SUPPORT MANAGER-BC 09/09/2023 Last Documented On 4 1:51PM ; [facility] Lumbar spondylosis PAIN MANAGEMENT FOLL OW UP with RAMON Alma Rosa AYSHA PUBLIC RELATIONS MANAGER-FPA, SENIOR SAFETY SUPPORT MANAGER-BC 09/09/2023 Last Documented On 4 1:51PM ; [facility] Lumbar stenosis PAIN MANAGEMENT FOLL OW UP with RAMON Alma Rosa AYSHA PUBLIC RELATIONS MANAGER-FPA, SENIOR SAFETY SUPPORT MANAGER-BC 09/09/2023 Last Documented On 4 1:51PM ; [facility] Vertebrogenic low back pain PAIN MANAGEM ENT FOLLOW UP with RAMON Alma Rosa AYSHA PUBLIC RELATIONS MANAGER-FPA, SENIOR SAFETY SUPPORT MANAGER-BC 09/09/2023 Last Documented On 4 1:51PM ; [facility] Chronic pain syndrome TELEHEALTH with RAMON St AYSHA PUBLIC RELATIONS MANAGER-FPA, SENIOR SAFETY SUPPORT MANAGER-BC 07/13/2023 Last Documented On 4 8:49AM ; [facility] Dextroscoliosis TELEHEALTH with RAMON St AYSHA A PRN-FPA, SENIOR SAFETY SUPPORT MANAGER-BC 07/13/2023 Last Documented On 4 8:49AM ; [facility] Low back pain TELEHEALTH with RAMON Alma Rosa AYSHA A PRN-FPA, SENIOR SAFETY SUPPORT MANAGER-BC 07/13/2023 Last Documented On 4 8:49AM ; [facility] Lumbar disc degeneration TELEHEALTH with RAMON G AYSHA PUBLIC RELATIONS MANAGER-FPA, SENIOR SAFETY SUPPORT MANAGER-BC 07/13/2023 Last Documented On 4 8:49AM ; [facility] Lumbar spondylosis TELEHEALTH with RAMON Alma Rosa KUL P PUBLIC RELATIONS MANAGER-FPA, SENIOR SAFETY SUPPORT MANAGER-BC 07/13/2023 Last Documented On 4 8:49AM ; [facility] Lumbar stenosis TELEHEALTH with RAMON G AYSHA A PRN-FPA, SENIOR SAFETY SUPPORT MANAGER-BC 07/13/2023 Last Documented On 4 8:49AM ; [facility] Vertebrogenic low back pain TELEHEALTH w ith RAMON G AYSHA PUBLIC RELATIONS MANAGER-FPA, SENIOR SAFETY SUPPORT MANAGER-BC 07/13/2023 Last Documented On 4 8:49AM ; [facility] Chronic pain syndrome PAIN MANAGEMENT FO LLOW UP with RAMON Alma Rosa AYSHA PUBLIC RELATIONS MANAGER-FPA, SENIOR SAFETY SUPPORT MANAGER-BC 05/14/2023 Last Documented On 4 10:24AM ; [facility] Dextroscoliosis PAIN MANAGEMENT FOLL OW UP with RAMON Alma Rosa AYSHA PUBLIC RELATIONS MANAGER-FPA, SENIOR SAFETY SUPPORT MANAGER-BC 05/14/2023 Last Documented On 4 10:24AM ; [facility] Low back pain PAIN MANAGEMENT FOLL OW UP with RAMON Alma Rosa AYSHA PUBLIC RELATIONS MANAGER-FPA, SENIOR SAFETY SUPPORT MANAGER-BC 05/14/2023 Last Documented On 4 10:24AM ; [facility] Lumbar disc degeneration PAIN MANAGEMENT FOLLOW UP with RAMON Alma Rosa AYSHA PUBLIC RELATIONS MANAGER-FPA, SENIOR SAFETY SUPPORT MANAGER-BC 05/14/2023 Last Documented On 4 10:24AM ; [facility] Lumbar spondylosis PAIN MANAGEMENT FOLL OW UP with RAMON Alma Rosa AYSHA PUBLIC RELATIONS MANAGER-FPA, SENIOR SAFETY SUPPORT MANAGER-BC 05/14/2023 Last Documented On 4 10:24AM ; [facility] Lumbar stenosis PAIN MANAGEMENT FOLL OW UP with RAMON Alma Rosa AYSHA PUBLIC RELATIONS MANAGER-FPA, SENIOR SAFETY SUPPORT MANAGER-BC 05/14/2023 Last Documented On 4 10:24AM ; [facility] Vertebrogenic low back pain PAIN MANAGEM ENT FOLLOW UP with RAMON Alma Rosa AYSHA PUBLIC RELATIONS MANAGER-FPA, SENIOR SAFETY SUPPORT MANAGER-BC 05/14/2023 Last Documented On 4 10:24AM ; [facility] Chronic pain syndrome TELEHEALTH with RAMON G AYSHA PUBLIC RELATIONS MANAGER-FPA, SENIOR SAFETY SUPPORT MANAGER-BC 04/16/2023 Last Documented On 3 3:07PM ; [facility] Dextroscoliosis TELEHEALTH with RAMON Alma Rosa AYSHA A PRN-FPA, SENIOR SAFETY SUPPORT MANAGER-BC 04/16/2023 Last Documented On 3 3:07PM ; [facility] Low back pain TELEHEALTH with RAMON G AYSHA A PRN-FPA, SENIOR SAFETY SUPPORT MANAGER-BC 04/16/2023 Last Documented On 3 3:07PM ; [facility] Lumbar disc degeneration TELEHEALTH with RAMON Alma Rosa AYSHA PUBLIC RELATIONS MANAGER-FPA, SENIOR SAFETY SUPPORT MANAGER-BC 04/16/2023 Last Documented On 3 3:07PM ; [facility] Lumbar spondylosis TELEHEALTH with RAMON CHAVARRIAL P PUBLIC RELATIONS MANAGER-FPA, SENIOR SAFETY SUPPORT MANAGER-BC 04/16/2023 Last Documented On 3 3:07PM ; [facility] Lumbar stenosis TELEHEALTH with RAMON CHAVARRIALP A PRN-FPA, SENIOR SAFETY SUPPORT MANAGER-BC 04/16/2023 Last Documented On 3 3:07PM ; [facility] Vertebrogenic low back pain TELEHEALTH w ith RAMON St AYSHA PUBLIC RELATIONS MANAGER-FPA, SENIOR SAFETY SUPPORT MANAGER-BC 04/16/2023 Last Documented On 3 3:07PM ; [facility] Chronic pain syndrome PAIN MANAGEMENT FOLLOW UP with KATHY RODRIGUEZ MD 04/02/2023 Last Documented On 3 2:21PM ; [facility] Dextroscoliosis PAIN MANAGEMENT FOLLOW UP with Bart RODRIGUEZ MD 04/02/2023 Last Documented On 3 2:21PM ; [facility] Low back pain PAIN MANAGEMENT FOLLOW UP with Bart RODRIGUEZ MD 04/02/2023 Last Documented On 3 2:21PM ; [facility] Lumbar disc degeneration PAIN MANAGEMENT FOLLOW UP with KATHY RODRIGUEZ MD 04/02/2023 Last Documented On 3 2:21PM ; [facility] Lumbar spondylosis PAIN MANAGEMENT FOLLOW UP wit mark RODRIGUEZ MD 04/02/2023 Last Documented On 3 2:21PM ; [facility] Lumbar stenosis PAIN MANAGEMENT FOLLOW UP with Bart RODRIGUEZ MD 04/02/2023 Last Documented On 3 2:21PM ; [facility] Vertebrogenic low back pain PAIN MANAGEM ENT FOLLOW UP with KATHY RODRIGUEZ MD 04/02/2023 Last Documented On 3 2:21PM ; [facility] Chronic pain syndrome PAIN MANAGEMENT FO LLOW UP with RAMON St AYSHA PUBLIC RELATIONS MANAGER-FPA, SENIOR SAFETY SUPPORT MANAGER-BC 02/12/2023 Last Documented On 3 1:06PM ; [facility] Dextroscoliosis PAIN MANAGEMENT FOLL OW UP with RAMON St AYSHA PUBLIC RELATIONS MANAGER-FPA, SENIOR SAFETY SUPPORT MANAGER-BC 02/12/2023 Last Documented On 3 1:06PM ; [facility] Low back pain PAIN MANAGEMENT FOLL OW UP with RAMON G AYSHA PUBLIC RELATIONS MANAGER-FPA, SENIOR SAFETY SUPPORT MANAGER-BC 02/12/2023 Last Documented On 3 1:06PM ; [facility] Lumbar disc degeneration PAIN MANAGEMENT FOLLOW UP with RAMON G AYSHA PUBLIC RELATIONS MANAGER-FPA, SENIOR SAFETY SUPPORT MANAGER-BC 02/12/2023 Last Documented On 3 1:06PM ; [facility] Lumbar spondylosis PAIN MANAGEMENT FOLL OW UP with RAMON G AYSHA PUBLIC RELATIONS MANAGER-FPA, SENIOR SAFETY SUPPORT MANAGER-BC 02/12/2023 Last Documented On 3 1:06PM ; [facility] Lumbar stenosis PAIN MANAGEMENT FOLL OW UP with RAMON G AYSHA PUBLIC RELATIONS MANAGER-FPA, SENIOR SAFETY SUPPORT MANAGER-BC 02/12/2023 Last Documented On 3 1:06PM ; [facility] Vertebrogenic low back pain PAIN MANAGEM ENT FOLLOW UP with RAMON Alma Rosa AYSHA PUBLIC RELATIONS MANAGER-FPA, SENIOR SAFETY SUPPORT MANAGER-BC 02/12/2023 Last Documented On 3 1:06PM ; [facility] Chronic pain syndrome PAIN MANAGEMENT FO LLOW UP with RAMON G AYSHA PUBLIC RELATIONS MANAGER-FPA, SENIOR SAFETY SUPPORT MANAGER-BC 11/13/2022 Last Documented On 3 5:44PM ; [facility] Dextroscoliosis PAIN MANAGEMENT FOLL OW UP with RAMON Alma Rosa AYSHA PUBLIC RELATIONS MANAGER-FPA, SENIOR SAFETY SUPPORT MANAGER-BC 11/13/2022 Last Documented On 3 5:44PM ; [facility] Low back pain PAIN MANAGEMENT FOLL OW UP with RAMON G AYSHA PUBLIC RELATIONS MANAGER-FPA, SENIOR SAFETY SUPPORT MANAGER-BC 11/13/2022 Last Documented On 3 5:44PM ; [facility] Lumbar disc degeneration PAIN MANAGEMENT FOLLOW UP with RAMON G AYSHA PUBLIC RELATIONS MANAGER-FPA, SENIOR SAFETY SUPPORT MANAGER-BC 11/13/2022 Last Documented On 3 5:44PM ; [facility] Lumbar spondylosis PAIN MANAGEMENT FOLL OW UP with RAMON G AYSHA PUBLIC RELATIONS MANAGER-FPA, SENIOR SAFETY SUPPORT MANAGER-BC 11/13/2022 Last Documented On 3 5:44PM ; [facility] Lumbar stenosis PAIN MANAGEMENT FOLL OW UP with RAMON Alma Rosa AYSHA PUBLIC RELATIONS MANAGER-FPA, SENIOR SAFETY SUPPORT MANAGER-BC 11/13/2022 Last Documented On 3 5:44PM ; [facility] Vertebrogenic low back pain PAIN MANAGEM ENT FOLLOW UP with RAMON Alma Rosa AYSHA PUBLIC RELATIONS MANAGER-FPA, SENIOR SAFETY SUPPORT MANAGER-BC 11/13/2022 Last Documented On 3 5:44PM ; [facility] Chronic pain syndrome PAIN MANAGEMENT FO LLOW UP with RAMON Alma Rosa AYSHA PUBLIC RELATIONS MANAGER-FPA, SENIOR SAFETY SUPPORT MANAGER-BC 10/14/2022 Last Documented On 3 5:01PM ; [facility] Dextroscoliosis PAIN MANAGEMENT FOLL OW UP with RAMON G AYSHA PUBLIC RELATIONS MANAGER-FPA, SENIOR SAFETY SUPPORT MANAGER-BC 10/14/2022 Last Documented On 3 5:01PM ; [facility] Low back pain PAIN MANAGEMENT FOLL OW UP with RAMON Alma Rosa AYSHA PUBLIC RELATIONS MANAGER-FPA, SENIOR SAFETY SUPPORT MANAGER-BC 10/14/2022 Last Documented On 3 5:01PM ; [facility] Lumbar disc degeneration PAIN MANAGEMENT FOLLOW UP with RAMON Alma Rosa AYSHA PUBLIC RELATIONS MANAGER-FPA, SENIOR SAFETY SUPPORT MANAGER-BC 10/14/2022 Last Documented On 3 5:01PM ; [facility] Lumbar spondylosis PAIN MANAGEMENT FOLL OW UP with RAMON Alma Rosa AYSHA PUBLIC RELATIONS MANAGER-FPA, SENIOR SAFETY SUPPORT MANAGER-BC 10/14/2022 Last Documented On 3 5:01PM ; [facility] Lumbar stenosis PAIN MANAGEMENT FOLL OW UP with RAMON G AYSHA PUBLIC RELATIONS MANAGER-FPA, SENIOR SAFETY SUPPORT MANAGER-BC 10/14/2022 Last Documented On 3 5:01PM ; [facility] Vertebrogenic low back pain PAIN MANAGEM ENT FOLLOW UP with RAMON G AYSHA PUBLIC RELATIONS MANAGER-FPA, SENIOR SAFETY SUPPORT MANAGER-BC 10/14/2022 Last Documented On 3 5:01PM ; [facility] Chronic pain syndrome PAIN MANAGEMENT FO LLOW UP with RAMON G AYSHA PUBLIC RELATIONS MANAGER-FPA, SENIOR SAFETY SUPPORT MANAGER-BC 09/11/2022 Last Documented On 3 1:04PM ; [facility] Dextroscoliosis PAIN MANAGEMENT FOLL OW UP with RAMON G AYSHA PUBLIC RELATIONS MANAGER-FPA, SENIOR SAFETY SUPPORT MANAGER-BC 09/11/2022 Last Documented On 3 1:04PM ; [facility] Low back pain PAIN MANAGEMENT FOLL OW UP with RAMON G AYSHA PUBLIC RELATIONS MANAGER-FPA, SENIOR SAFETY SUPPORT MANAGER-BC 09/11/2022 Last Documented On 3 1:04PM ; [facility] Lumbar disc degeneration PAIN MANAGEMENT FOLLOW UP with RAMON G AYSHA PUBLIC RELATIONS MANAGER-FPA, SENIOR SAFETY SUPPORT MANAGER-BC 09/11/2022 Last Documented On 3 1:04PM ; [facility] Lumbar spondylosis PAIN MANAGEMENT FOLL OW UP with RAMON G AYSHA PUBLIC RELATIONS MANAGER-FPA, SENIOR SAFETY SUPPORT MANAGER-BC 09/11/2022 Last Documented On 3 1:04PM ; [facility] Lumbar stenosis PAIN MANAGEMENT FOLL OW UP with RAMON G AYSHA PUBLIC RELATIONS MANAGER-FPA, SENIOR SAFETY SUPPORT MANAGER-BC 09/11/2022 Last Documented On 3 1:04PM ; [facility] Vertebrogenic low back pain PAIN MANAGEM ENT FOLLOW UP with RAMON G AYSHA PUBLIC RELATIONS MANAGER-FPA, SENIOR SAFETY SUPPORT MANAGER-BC 09/11/2022 Last Documented On 3 1:04PM ; [facility] Chronic pain syndrome PAIN MANAGEMENT FO LLOW UP with RAMON G AYSHA PUBLIC RELATIONS MANAGER-FPA, SENIOR SAFETY SUPPORT MANAGER-BC 07/10/2022 Last Documented On 3 11:02AM ; [facility] Dextroscoliosis PAIN MANAGEMENT FOLL OW UP with RAMON G AYSHA PUBLIC RELATIONS MANAGER-FPA, SENIOR SAFETY SUPPORT MANAGER-BC 07/10/2022 Last Documented On 3 11:02AM ; [facility] Low back pain PAIN MANAGEMENT FOLL OW UP with RAMON G AYSHA PUBLIC RELATIONS MANAGER-FPA, SENIOR SAFETY SUPPORT MANAGER-BC 07/10/2022 Last Documented On 3 11:02AM ; [facility] Lumbar disc degeneration PAIN MANAGEMENT FOLLOW UP with RAMON G AYSHA PUBLIC RELATIONS MANAGER-FPA, SENIOR SAFETY SUPPORT MANAGER-BC 07/10/2022 Last Documented On 3 11:02AM ; [facility] Lumbar spondylosis PAIN MANAGEMENT FOLL OW UP with RAMON St AYSHA PUBLIC RELATIONS MANAGER-FPA, SENIOR SAFETY SUPPORT MANAGER-BC 07/10/2022 Last Documented On 3 11:02AM ; [facility] Lumbar stenosis PAIN MANAGEMENT FOLL OW UP with RAMON Alma Rosa AYSHA PUBLIC RELATIONS MANAGER-FPA, SENIOR SAFETY SUPPORT MANAGER-BC 07/10/2022 Last Documented On 3 11:02AM ; [facility] Chronic pain syndrome TELEHEALTH with RAMON G AYSHA PUBLIC RELATIONS MANAGER-FPA, SENIOR SAFETY SUPPORT MANAGER-BC 05/14/2022 Last Documented On 3 7:55PM ; [facility] Dextroscoliosis TELEHEALTH with RAMON Alma Rosa AYSHA A PRN-FPA, SENIOR SAFETY SUPPORT MANAGER-BC 05/14/2022 Last Documented On 3 7:55PM ; [facility] Low back pain TELEHEALTH with RAMON Alma Rosa AYSHA A PRN-FPA, SENIOR SAFETY SUPPORT MANAGER-BC 05/14/2022 Last Documented On 3 7:55PM ; [facility] Lumbar disc degeneration TELEHEALTH with RAMON G AYSHA PUBLIC RELATIONS MANAGER-FPA, SENIOR SAFETY SUPPORT MANAGER-BC 05/14/2022 Last Documented On 3 7:55PM ; [facility] Lumbar spondylosis TELEHEALTH with RAMON Alma Rosa KUL P PUBLIC RELATIONS MANAGER-FPA, SENIOR SAFETY SUPPORT MANAGER-BC 05/14/2022 Last Documented On 3 7:55PM ; [facility] Lumbar stenosis TELEHEALTH with RAMON G AYSHA A PRN-FPA, SENIOR SAFETY SUPPORT MANAGER-BC 05/14/2022 Last Documented On 3 7:55PM ; [facility] Chronic pain syndrome [Patient Encounter ] with RAMON G AYSHA PUBLIC RELATIONS MANAGER-FPA, SENIOR SAFETY SUPPORT MANAGER-BC 04/10/2022 Last Documented On 2 9:40AM ; [facility] Dextroscoliosis [Patient Encounter] with RAMON G AYSHA PUBLIC RELATIONS MANAGER-FPA, SENIOR SAFETY SUPPORT MANAGER-BC 04/10/2022 Last Documented On 2 9:40AM ; [facility] Low back pain [Patient Encounter] with RAMON Alma Rosa AYSHA PUBLIC RELATIONS MANAGER-FPA, SENIOR SAFETY SUPPORT MANAGER-BC 04/10/2022 Last Documented On 2 9:40AM ; [facility] Lumbar disc degeneration [Patient Encoun ter] with RAMON St AYSHA PUBLIC RELATIONS MANAGER-FPA, SENIOR SAFETY SUPPORT MANAGER-BC 04/10/2022 Last Documented On 2 9:40AM ; [facility] Lumbar spondylosis [Patient Encounter] with RAMON St AYSHA PUBLIC RELATIONS MANAGER-FPA, SENIOR SAFETY SUPPORT MANAGER-BC 04/10/2022 Last Documented On 2 9:40AM ; [facility] Lumbar stenosis [Patient Encounter] with RAMON St AYSHA PUBLIC RELATIONS MANAGER-FPA, SENIOR SAFETY SUPPORT MANAGER-BC 04/10/2022 Last Documented On 2 9:40AM ; [facility] Chronic pain syndrome PAIN MANAGEMENT NE W CONSULT with RAMON St AYSHA PUBLIC RELATIONS MANAGER-FPA, SENIOR SAFETY SUPPORT MANAGER-BC 04/02/2022 Last Documented On 2 4:57PM ; [facility] Dextroscoliosis PAIN MANAGEMENT NEW CONSULT with RAMON St AYSHA PUBLIC RELATIONS MANAGER-FPA, SENIOR SAFETY SUPPORT MANAGER-BC 04/02/2022 Last Documented On 2 4:57PM ; [facility] Low back pain PAIN MANAGEMENT NEW CONSULT with RAMON St AYSHA PUBLIC RELATIONS MANAGER-FPA, SENIOR SAFETY SUPPORT MANAGER-BC 04/02/2022 Last Documented On 2 4:57PM ; [facility] Lumbar disc degeneration PAIN MANAGEMENT NEW CONSULT with RAMON St AYSHA PUBLIC RELATIONS MANAGER-FPA, SENIOR SAFETY SUPPORT MANAGER-BC 04/02/2022 Last Documented On 2 4:57PM ; [facility] Lumbar spondylosis PAIN MANAGEMENT NEW CONSULT with RAMON St AYSHA PUBLIC RELATIONS MANAGER-FPA, SENIOR SAFETY SUPPORT MANAGER-BC 04/02/2022 Last Documented On 2 4:57PM ; [facility] Lumbar stenosis PAIN MANAGEMENT NEW CONSULT with RAMON St AYSHA PUBLIC RELATIONS MANAGER-FPA, SENIOR SAFETY SUPPORT MANAGER-BC 04/02/2022 Last Documented On 2 4:57PM ; [facility] Instructions Includes: Instructions for all patient encounters Education and Decision Aids were provided during visit for: Pill Count: two Tramadol Last Documented On 4 8:35AM ; [facility] Pill Count: two Tramadol Last Documented On 4 1:21PM ; [facility] Pill Count: 20 Tramadol Last Documented On 4 8:32AM ; [facility] Pill Count: twelve Tramadol Last Documented On 4 9:15AM ; [facility] Pill Count: Tramadol Last Documented On 3 11:09AM ; [facility] Pill Count: Patient did not bring pain medication to appointment for pill count, per policy. Advised in order to continue to safely prescribe opioids, medication must be brought to each appointment Last Documented On 3 11:10AM ; [facility] Pill Count: Tramadol Last Documented On 3 2:34PM ; [facility] Pill Count: Tramadol Last Documented On 3 3:23PM ; [facility] Pill Count: Acetaminophen wi th codeine Last Documented On 3 1:41PM ; [facility] Pill Count: ten Last Documented On 3 10:37AM ; [facility] Pill Count: four Last Documented On 3 10:29AM ; [facility] Medical Equipment - Implanted Devices Includes: Current and historical Devices No Medical Equipment Recorded Medications Includes: Current and historical Medications Current Medications (continue as prescribed) traMADol HCl 50 MG Oral Tablet 10/21/2023 Provider: LISSETTE JONES Diagnosis: Spinal stenosis, lumbar region without neurogenic sheryl One tablet daily as needed Last Documented On 4 9:05AM By RAMON MCLAUGHLIN ; [facility] Atorvastatin Calcium 10 MG Oral Tablet 04/15/2023 Pr ovider: TRACIE WATSON MD Diagnosis: Last Documented On 3 3:06PM By RAMON MCLAUGHLIN ; [facility] Estradiol 1 MG Oral Tablet 04/02/2022 Provider: Diagnosis: Last Documented On 2 9:37AM By RAMON MCLAUGHLIN ; [facility] Lisinopril-hydroCHLOROthiazide 20-12.5 MG Oral Tablet 04/02/2022 Provider: Diagnosis: Last Documented On 2 9:37AM By RAMON MCLAUGHLIN ; [facility] Past Medications on file traMADol HCl 50 MG Oral Tablet 09/09/2023 - 10/21/2023 Provider: LISSETTE MARCELINO Diagnosis: Spinal stenosis, lumbar region without neurogenic sheryl One tablet daily as needed Last Documented On 4 8:53AM By RAMON MCLAUGHLIN ; [facility] traMADol HCl 50 MG Oral Tablet 05/14/2023 - 09/09/2023 Provider: Diagnosis: 1 as needed for pain. Last Documented On 4 1:51PM By RAMON MCLAUGHLIN ; [facility] predniSONE 10 MG Oral Tablet 04/23/2023 - 05/14/2023 Provider: LISSETTE MARCELINO Diagnosis: Dorsalgia, unspe cified 4 tablets with breakfast for 3 days then 3 for 3 days then 2 for 3 days Last Documented On 4 9:09AM By Tg STYLES ; [facility] Ibuprofen 600 MG Oral Tablet 02/12/2023 - 05/14/2023 Provider: LISSETTE MARCELINO Diagnosis: Low back pain, unspecified One tablet twice a day with a meal Last Documented On 4 9:23AM By RAMON MCLAUGHLIN ; [facility] traMADol HCl 50 MG Oral Tablet 10/14/2022 - 04/16/2023 Provider: LISSETTE MARCELINO Diagnosis: Spinal stenosis, lumbar region without neurogenic sheryl One tablet three times a day as needed for severe pain Last Documented On 3 2:44PM By Tg STYLES ; [facility] Ibuprofen 600 MG Oral Tablet 10/14/2022 - 02/12/2023 Provider: LISSETTE MARCELINO Diagnosis: Low back pain, unspecified One tablet twice a day with a meal Last Documented On 3 2:49PM By RAMON MCLAUGHLIN ; [facility] Acetaminophen-Codeine #3 300-30 MG Oral Tablet 07/10/2022 - 11/13/2022 Provider: LISSETTE MARCELINO Diagnosis: Low back pain, unspecified One tablet twice a day as needed for severe pain Last Documented On 3 3:27PM By Tg STYLES ; [facility] Acetaminophen-Codeine #3 300-30 MG Oral Tablet 05/09/2022 - 07/10/2022 Provider: LISSETTE MARCELINO Diagnosis: Low back pain, unspecified One tablet twice a day as needed for severe pain Last Documented On 3 10:52AM By RAMON MCLAUGHLIN ; [facility] Acetaminophen-Codeine #3 300-30 MG Oral Tablet 04/02/2022 - 05/09/2022 Provider: LISSETTE MARCELINO Diagnosis: Low back pain, unspecified One tablet three times a day as needed for SEVERE pain Last Documented On 3 1:47PM By RAMON MCLAUGHLIN ; [facility] Pravastatin Sodium 10 MG Oral Tablet 04/02/2022 - 04/03 Provider: Diagnosis: Last Documented On 3 2:44PM By Tg STYLES ; [facility] Omeprazole 20 MG Oral Tablet Delayed Release Disintegrating 04/02/2022 - 05/14/2023 Provider: Diagnosis: Last Documented On 4 9:09AM By Tg STYLES ; [facility] Ibuprofen 200 MG Oral Tablet 04/02/2022 - 02/13/20 23 Provider: Diagnosis: 3 in the am and 2 at night if needed. Last Documented On 3 2:49PM By RAMON MCLAUGHLIN ; [facility] Medications Administered Includes: Administered Medications in patient's chart No Administered Medications Recorded Vital Signs Includes: Vital Signs from 05/27/2023 through 05/27/2024 Vital Name 10/21/2023 08:36A 09/09/2023 01:22P 07/12 08:33A Blood Pressure Sitting L 132/76 129/77 BP Cuff Size Regular Regular Regular Temp-Temporal 98.1 96.4 97.2 Height (in) 60 60 60 Weight (lb) 128 128 129 Body Mass Index 25 25 25.2 Body Surface Area 1.5 1.5 1.5 Pain Level 2 2 2 Blood Pressure Sitting R 128/78 Pulse Rate-Sitting (bpm) 66 Oxygen Saturation (%) 98 Last Documented: On 10/21/2023 8:37AM ; [facility] On 09/09/2023 1:25PM ; [facility] On 07/13/2023 8:33AM ; [facility] Results Includes: Results from 05/27/2023 through 05/27/2024 No Results Recorded For Specified Dates History of Present Illness History of Present Illness not supported for this document type No History of Present Illness Recorded Social History Description Last Updated Tobacco non-user 04/02/2022 Last Documented On 2 4:57PM ; [facility] Alcohol 04/02/2022 Last Documented On 2 4:57PM ; [facility] Amount of alcohol per day: 1 genaro month? 04/02/2022 Last Documented On 2 4:57PM ; [facility] Difficulty walking 04/02/2022 Last Documented On 2 4:57PM ; [facility] Not using drugs 04/02/2022 Last Documented On 2 4:57PM ; [facility] Smoking Status Unknown Procedures and Surgical History Includes: Procedures from 05/27/2023 through 05/27/2024 Procedures Code Diagnosis Performing Provider Service Location Service Date TELEHEALTH VISIT [facility] (TELEMEDICINE SERVICE VIA REAL TIME A[employer]V TELECOMM, POLICY CRITERIA APPLIED) G2025 Other spondylosis, lumbar region, Spinal stenosis, lumbar region without neurogenic sheryl, Vertebrogenic low back pain, Low back pain, unspecified RAMON G AYSHA PUBLIC RELATIONS MANAGER-FPA, SENIOR SAFETY SUPPORT MANAGER-BC [facility] 07/13/2023 Last Documented On 4 2:44PM ; [facility] Surgical History Last Updated No Pacemaker 04/02/2022 Last Documented On 2 4:57PM ; [facility] Medical History Includes: Medical History in patient's chart Description Last Updated Comprehensive metabolic pane l 10/03/2022 she emailed a picture of her lab result I could not print out. Pertinent below: ~BUN 26 ~Creatinine 0.84 ~eGFR >60 ~TSH normal ~CBC unremarkable 10/17/2022 Last Documented On 3 5:01PM ; [facility] occasional caregiver 04/02/2022 Last Documented On 2 4:57PM ; [facility] Currently wearing eyeglasses 04/02/2022 Last Documented On 2 4:57PM ; [facility] No Pain Pump 04/02/2022 Last Documented On 2 4:57PM ; [facility] No Spinal cord stimulator 04/02/2022 Last Documented On 2 4:57PM ; [facility] Physical therapy 04/02/2022 Last Documented On 2 4:57PM ; [facility] Please list all surgeries: 08/23/21bladde r sling surgery 04/02/2022 Last Documented On 2 4:57PM ; [facility] Denies a fear of falling. 04/02/2022 Last Documented On 2 4:57PM ; [facility] Has had no fall in the last 12 months. 1 06/02/2021 Last Documented On 2 4:57PM ; [facility] Family History Includes: Family History in patient's chart Description Last Updated Maternal history of family history of ki dney disease 04/02/2022 Last Documented On 2 4:57PM ; [facility] Review of Systems Review of Systems not supported for this document type No Review of Systems Recorded Mental Status No Mental Status Recorded Functional Status No Functional Status Recorded Physical Exam Physical Exam not supported for this document type No Physical Exam Recorded Allergies Includes: Active, inactive, and resolved Allergies No Known Allergies Encounters Includes: Encounters from 05/27/2023 through 05/27/2024 Encounter Provider Location Date Check-In Time Check-Out Time Diagnosis TELEHEALTH CARMEN MARCELINO-NGOZI [facility] 024 8:28AM 9:01AM Lumbar Spondylosis,Spinal Stenosis Lumbar,Chronic Pain Syndrome,Intervert ebral Disc Degeneration - Lumbar,Dorsopathy Low Back Pain,Dorsopathy Low Back Pain Vertebrogenic,Scol iosis Dextroscoliosis,Le ft Hip Pain POST PROCEDURE PHONE CALL ANALILIA MARCELINOP-[facility] 024 09/09/2023 3:31PM 09/09/2023 11:59PM PAIN MANAGEMENT FOLLOW UP RAMON CHAVARRIAHALEY YAO [facility] 024 12:55PM 1:49PM Lumbar Spondylosis,Spinal Stenosis Lumbar,Chronic Pain Syndrome,Intervert ebral Disc Degeneration - Lumbar,Dorsopathy Low Back Pain,Dorsopathy Low Back Pain Vertebrogenic,Scol iosis Dextroscoliosis TELEHEALTH RAMON CHAVARRIAHALEY YAO, [facility] 024 8:26AM 8:58AM Lumbar Spondylosis,Spinal Stenosis Lumbar,Chronic Pain Syndrome,Intervert ebral Disc Degeneration - Lumbar,Dorsopathy Low Back Pain,Dorsopathy Low Back Pain Vertebrogenic,Scol iosis Dextroscoliosis Insurance Includes: Active Insurance Policies Plan Name Member ID Group # Subscriber Relationship Effect ignacio Dates 1 - MEDICARE PART A CLAIMS/NGS [id number] FRANKLIN Saleh 2 - [employer] [id number] FRANKLIN Saleh Clinical Notes Includes: Signed Clinical Notes starting from 05/23/2022 * Progress note Date Encounter Last Documented by 10/21/2023 TELEHEALTH Last documented on 10/21/2023; 8:59 AM, RAMON St AYSHA YAO [facility]; [facility] Active Problems & Conditions - Essential Hypertension - Hyperlipidemia Chief Complaint The Chief Complaint is: Follow up for L4-L5 TFESI 80 % - 40% ongoing. History of Present Illness PHQ-9 Score: 0 Date:09/09/2023 BPI Score: Date: Oswestry Score: 16% after epidural Date:09/09/2023 SOAPP-R Score: 2 Date:09/09/2023 Pain Location: Lumbar Quality: aches, dull, sharp, sore, Radiation: None Severity: Timing: intermittent. Associated Sx: affecting walking. Aggravating Factors: getting up for first time. Alleviating Factors: pillow between legs, walking, stretching, holding on to something while she walks. Past Tx: Physical therapy Apr 2022-May 2022, back brace, L4-5 TFESI 04/18/22 and 11/05/22 [75% improvement], Intracept 04/09 L5 and S1 , L4-5 TFESI 10/14/23 40-50% FRANKLIN ROBERTS is a 72 year old female. - Allergy list reviewed - Problem list reviewed - Medication reconciliation performed - Medication list reviewed - Primary Care Provider: Dr. Alex - Prescription Drug Monitoring Program website checked. 10/14/2022 - How much of the medication are you taking a day? Up to 2 a day if needed - Last dose of medication? Yesterday - Pain comes/goes - Pain in AM Pain in AM - Primary pain location Lower Back - Primary pain duration Depends on function - Secondary pain duration Depends on function - Secondary pain location Uper back between shoulder blade - Pain is throbbing - Pain is dull, aching - Pain is deep - Pain is heavy - Relieved by exercise/PT - Pain aggravated going up stairs - Pain aggravated sitting - Pain aggravated standing - Pain aggravated by walking - Pain aggravated lifting - Pain aggravated by working - No vertigo - Last drug screen appropriate 07/10/2022 Discussion: FU after L4-5 TFESI. She feels like she is doing maybe 50% better but is having a lot of pain in the left buttock and down the back of the left leg. Sounds like a S1 radiculopathy. SHe wants to hold off on any injections right now and give it a month. We will obtain L hip and SI x-rays since she is bothered by this mostly when she is walking and if she sits for too long when she first stands up to walk. PRIOR VISIT: Here for routine follow up for low back pain. She last did PT for her back pain Apr 2022-May 2022 and is very good about continuing her home exercises daily. She had epidural in November of 2022 that was around 75% helpful for her back pain for several months. She continues to be improved after Intracept at L5-S1. She is having some increased axial back pain. We may have to consider Intracept vs MBB to thermal RFA at the upper lumbar levels. We discussed repeating epidural at this time since it did provide her with significant long lasting benefit in the past. She would like to proceed. PRIOR VISIT: Routine FU low back pain. Doing well overall. Some morning stiffness but once she gets up and moves around symptoms improve. We discussed HS muscle relaxer but she wants to hold off for now. She is able to lift more things than she was before. She has some left buttock/hip pain that we discussed consideration of SI joint vs epidural injection but we will wait until I see her in the office to do an exam. She will continue her home exercises. PRIOR VISIT: FU chronic low back pain. Patient states she is overall doing better s/p Intracept, in regards to the sharp/stabbing pain in the low back but now it is a catching/sticking type of discomfort and continues to have some of the compressive discomfort that she had before. She has severe DDD at L5-S1 likely contributing to these symptoms. She is doing her exercises. She can walk longer distances now which is an improvement. PCP stopped Ibuprofen due to renal function but she feels like she doesn't necessarily need this every night now like she did prior to Intracept. She is overall happy with her results. We discussed consideration of L5-S1 TFESI if needed in the future. She is about 4 weeks out from Intracept. Pain is still lumbosacral in nature. She still can not lift anything. Recommended so slowly start working on the strengthening exercises. We discussed goals/realistic expectations as well today. PRIOR VISIT Telehealth 05/02/23 FU after Intracept procedure at L5 and S1. She is 1 week post op and doing really well. She has minimal to no pain. She has followed post op restrictions and instructions. She has steri strips in place over one site but they have fallen off on the other. No redness/bruising/drainage to the incision sites. She states other than some mild pressure feeling like she can still feel the vertebrae compressing some she has no pain and is very pleased with her results. She is ready to begin her stretches and exercises again and start baking. We discussed increasing activity slowly as tolerated and rest if needed. I will see her in 1 month again to track progress. PRIOR VISIT Dr. Rodriguez 04/02/23 Patient returns in follow-up to further discuss the Intracept procedure which she has tentatively scheduled for the 15 of this month. She has multiple questions which were answered in detail today. Of note, the patient has multilevel disease including the L3, L2 and L1 levels which may need to be addressed in the future although her primary concern is more lumbosacral in nature. She is markedly limited in her ability to carry or objects or clean forward to increase axial low back pain with significant Modic type to endplate changes on MRI of the lumbar spine. We discussed the procedure including expected outcomes and timing of recuperation in detail today. She was instructed to have a meals on wheels driver bring her in and drive her home from the procedure. She is instructed on use of antibacterial soap on the night before morning-after. She was instructed to be NPO from midnight the morning the procedure. Preoperative at labs ordered. She like to get this done in [place]. Recommend she get these done as soon as possible not delay her planned surgery. Risks, benefits and alternatives the above treatment options were discussed in detail the patient who expressed explicit understanding and consent to proceed. Questions were elicited, asked and answered the best of our ability and to her satisfaction today. Patient returns 7 to 10 days after the procedure for wound evaluation and one month later to assess response. [place] prescription monitoring database was reviewed and found to be appropriate. PRIOR VISIT: Here for routine 3 month FU for low back pain. She continues her home exercises and stretches. She feels like she gets a lot of benefit from this. She uses the cane with walking to help with her gait. She still has pain and a compressive feeling in the low spine that gets much worse with lifting anything. Even a gallon of milk or a power from the stove increases the low back pain and she has to ask for help. She is frustrated that simple kitchen tasks that she used to easily do she has to ask for help with now. She loves to cook and bake from scratch and has to break it up tasks over a few days. She would like to be able to stand and bake for longer periods and be able to lift small items on her own. We discussed the Intracept procedure as an option as I believe this pain is due to vertebrogenic changes. She has looked over the printed materials I gave her and watched videos with her . She is concerned about possible cost. We will try to get her a quote on this before scheduling. Her MRI shows modic changes at multiple levels. She has signed the procedure specific Intracept patient authorization form. She has had pain that limits her daily activities in her low back made worse by flexing and lifting that has failed conservative therapies. She has done PT, NSAIDs, Tylenol, avoidance of aggravating activity, injections, and opioids as needed. Despite this she continues to have pain in the low back area that limits her activity. Dr Rodriguez has reviewed notes and imaging. She would be a good candidate for the Intracept procedure for better control of her vertebrogenic pain. She was given the General anesthesia pre operative information. We will see her back for H&P prior to the procedure once approved by insurance. FIRST VISIT 04/02/22: Patient referred by her primary care provider for low back pain. The patient reports low back pain for almost 10 years. It has worsened in the last 1 to 2 years to the point where it interferes with her daily activities. Pain is axial in nature only radiating to the right upper buttock. Pain is made worse with standing for any period of time. She especially notices it when she is trying to cook or bake. The longer she stands or walks she feels like her spine is becoming more and more compressed and has a lot of pressure in the low back. Trying to lift something as small as her purse is also difficult. Stairs are difficult. She cannot lay on her stomach, this worsens pain. Flexing causes pain but also sometimes feels good when she is doing her stretching. At rest/sitting she has little to no pain. She has a lot of difficulty with weakness of the left pelvic girdle. She worked on this in physical therapy and continues a home exercise program along with yoga. Currently taking ibuprofen which helps a little bit with the pain. She also uses Biofreeze or Voltaren gel. Sometimes uses an ice pack. She has seen a chiropractor for adjustments for the last several years. He stopped being beneficial in the last year or two. She reports slight leg length discrepancy with the right leg being a little bit shorter than the left. She is very upset that her pain keeps her from doing things. Otherwise she would be very active. She does not like to sit still very long. She appears to be a very healthy active 71 year old otherwise. Imaging: All relevant imaging available was personally reviewed with the patient today with the following tests and results noted: MRI lumbar spine 02/04/2022 28- dextro scoliosis of lumbar spine. Mild central canal stenosis at L1- L4. Severe spondylosis at L4- S1. Severe disc degeneration at T12- L3 and L5- S1 with endplate remodeling at L5- S1. Moderate degenerative disc disease at L3- L4 and L4- L5. Modic changes @ L1, L2, L3, L5, and S1. Per Dr Rodriguez start w/ L5 and S1 and then if necessary do L1-3. X-Ray Lumbar Spine 12/09/21 Impression: Scoliosis. Grade 1 anterolisthesis at L4- L5 and L5- S1. Multilevel severe facet arthropathy. Multilevel mild to moderate degenerative disc disease. Concave endplate deformities as can be seen with osteoporosis Current Medication - Atorvastatin Calcium 10 MG Oral Tablet One tablet daily 90 days, 0 refills - Estradiol 1 MG Oral Tablet One tablet daily 0 days, 0 refills - Lisinopril-hydroCHLOROthiazide 20-12.5 MG Oral Tablet One tablet daily 0 days, 0 refills - traMADol HCl 50 MG Oral Tablet One tablet daily as needed, 30 days, 0 refills Past Medical/Surgical History Reported: occasional caregiver, Physical therapy, and Please list all surgeries: 08/23/21bladder sling surgery. Medical: Currently wearing eyeglasses. No Spinal cord stimulator and no Pain Pump. Surgical / Procedural: No Pacemaker. Physical Trauma: Has had no fall in the last 12 months. and Denies a fear of falling. Other: Comprehensive metabolic panel 10/03/2022 she emailed a picture of her lab result I could not print out. Pertinent below: BUN 26 Creatinine 0.84 eGFR >60 TSH normal CBC unremarkable Social History Difficulty walking. Behavioral: Amount of alcohol per day: 1 genaro month?. Tobacco use: Tobacco non-user. Alcohol: Alcohol. Drug Use: Not using drugs. Allergies - No Known Allergies Family History Maternal: Kidney disease Review Of Systems Systemic: No systemic symptoms other then noted and no recent weight loss. Head: No head symptoms other then noted. Neck: No neck pain. Otolaryngeal: No otolaryngeal symptoms other than noted. Hearing loss. Cardiovascular: No cardiovascular symptoms other than noted. Pulmonary: No pulmonary symptoms other than noted. Gastrointestinal: No difficulty chewing and no dysphagia. Heartburn. Genitourinary: No genitourinary symptoms other than noted. Endocrine: No endocrine symptoms other than noted. Weakness. Hematologic: No easy bleeding and no tendency for easy bruising. Musculoskeletal: Musculoskeletal symptoms low back pain, weakness. No musculoskeletal symptoms other than noted. Back pain, ankle joint swelling, and pain localized to one or more joints. Neurological: No neurological symptoms other than noted and no fainting passing out with needles or medical procedures. Psychological: No sleep apnea. Skin: No skin symptoms other than noted. Physical Findings - Vitals taken 10/21/2023 08:36 am BP-Sitting L 132/76 mmHg BP Cuff Size Regular Temp-Temporal 98.1 F Height 60 in Weight 128 lbs Body Mass Index 25 kg/m2 Body Surface Area 1.5 m2 Pain Level 2 Pain Level Note Lumbar Psychiatric: Psychiatric: Value PHQ9 score: 2 PRIOR EXAM Constitutional: Well developed. Well nourished. No acute distress. HEENT: NC/AT. Anicteric. Clear Conjunctiva. PERRLA. MM's pink/moist. No discharge via nares. No discharge via EAC. Neck supple. No thyromegally. No palpable masses. No lymphadenopathy in cervical chain bilaterally. CVS: RRR. No murmurs. No peripheral edema. Peripheral pulses palpable in all extremities. Pulmonary: CTA bilaterally. No wheezes. No rales. No crackles. No rubs. Normal chest expansion. Spine/MSK: Nontender lumbar spine. Nontender SI joint's. Negative straight leg test bilaterally. Negative Darrell's and thigh thrust left, positive right. Negative logrolling bilaterally. Negative facet loading on the right, positive facet loading on the left. Pain with initial flexion then better with further flexing. Weak L hip girdle muscles. Can not stand on left leg with out holding onto something. R leg is not weak. R shoulder and pelvis sits a bit higher than the left. Pain with lifting small amount of weight. Gait: Not antalgic. No steppage gait. No Trendelenburg gait. No circumspected gait pattern. Heel walk normal. Toe walk normal. Tandem gait normal. Neuro: Awake. Alert. Oriented x3. DTR's intact in all extremities. DTR's equal in all extremities. No sensory deficit. No motor deficit. Psych: No apparent distress. Mood normal. Affect normal. No pain behaviors. Skin: Normal. Purvis, warm, dry. Tests Educational Testing: Questionnaires PHQ-9: Value SOAPP-R: total score 6 Assessment - [M25.552 - Pain in left hip] Left Hip pain - [M51.36 - Other intervertebral disc degeneration, lumbar region] Lumbar disc degeneration - [M47.896 - Other spondylosis, lumbar region] Lumbar spondylosis - [M54.50 - Low back pain, unspecified] Low back pain - [M54.51 - Vertebrogenic low back pain] Vertebrogenic low back pain - [M41.9 - Scoliosis, unspecified] Dextroscoliosis - [M48.061 - Spinal stenosis, lumbar region without neurogenic claudication] Lumbar stenosis - [G89.4 - Chronic pain syndrome] Chronic pain syndrome Therapy - Reviewed & agreed to staff entries. - Clinical summary provided to patient. Counseling/Education - Pill Count: two Tramadol Discussed Continue home stretches and strengthening exercises. FU 1 month. Consider steroid injection L5-S1. Consider Intracept at L2, L3, L4. Consider ablation. Plan StartCited - Low back pain, unspecified X-ray/OUTSIDE XRAYS: SACROL ILLIAC JOINTS EndCited StartCited - Pain in left hip X-ray/OUTSIDE XRAYS: HIP UNI 2 VIEWS LEFT EndCited StartCited - Spinal stenosis, lumbar region without neurogenic sheryl traMADol HCl 50 MG tablet One tablet daily as needed, 30 days, 0 refills EndCited Patient was seen today for 4 chronic unstable conditions of the lumbosacral spine, and central nervous system.Without treatment patient is at risk for significant functional limitations resulting in diminished quality of life and impaired age appropriate activities of daily living. Multiple documents have been reviewed in combination with today's evaluation including imaging studies, outside provider notes, laboratory data, patient self-report questionnaires, and [place] prescription monitoring database entries. Significant social barriers exist to compliance resulting in limited prognosis. Practice Management Use of tobacco assessment performed Review of medications documented; Screening for adult depression: impression and score 0; [65479] Established outpatient, medically appropriate H&P, moderate level decision making, 30+ minutes. A total of 14 minutes were spent on this patient's care and evaluation, as above. Results of this interaction were communicated directly to the patient's referring and/or primary care provider. All imaging studies and test results discussed in the above document were personally reviewed and evaluated by the performing provider. For all patients on acute or chronic opioids, ongoing need for opioid analgesia is assessed at each visit with consideration of discontinuation or wean to lowest effective dose when possible and appropriate. Contents of this document have been edited for correctness, but may be subject to typographical or wire strander errors. Verify all diagnoses, medications, dosages, and patient instructions with patient and/or the originator of this document. Care Team - TRACIE WATSON MD - Primary Care Health Reminders - Assess Blood Pressure satisfied 10/21/2023. - Assess BMI satisfied 10/21/2023. - Assess Need for CT Lung Screen satisfied 10/21/2023. - Assess Tobacco Use satisfied 10/21/2023. - Depression Screening satisfied 10/21/2023. * Progress note Date Encounter Last Documented by 10/09/2023 POST PROCEDURE PHONE CALL Last d ocumented on 10/09/2023; 3:34 PM, Roseann York RN; [facility] Top of Document Post-Procedural Patient Screening Questionnaire Date of Procedure: 10/07/23 Procedure: bilateral L4-5 TFESI 1. How have you felt since your last procedure? Reports 75% overall relief Improved Same Worse 2. Pain level prior to procedure? 3-8/10 3. Pain level currently? 0 /10 4. How long after procedure did symptoms begin? Same pain but worse New Symptoms ? If new, describe: Improving Staying the same Getting worse 5. Any post procedure issues with injection? denies Heat Swelling Soreness Redness Streaking Injection site pain Bleeding Discharge/Drainage 6. Are you experiencing new numbness in the groin or saddle area? Yes No 7.New loss of bowel or bladder control? Yes No 8. Are you having any of the following symptoms? denies Fever Chills Night Sweats Rigors/Shaking Chills Headaches Neck Stiffness Sensitivity to sound New muscle pain/Stiffness Weakness Nausea Vomiting Diarrhea Dizziness Rash Flushing Mood Irritability Blood Pressure changes Blood sugar changes call completed by Basia York RN Active Problems & Conditions - Essential Hypertension - Hyperlipidemia Current Medication - Atorvastatin Calcium 10 MG Oral Tablet One tablet daily 90 days, 0 refills - Estradiol 1 MG Oral Tablet One tablet daily 0 days, 0 refills - Lisinopril-hydroCHLOROthiazide 20-12.5 MG Oral Tablet One tablet daily 0 days, 0 refills - traMADol HCl 50 MG Oral Tablet One tablet daily as needed, 30 days, 0 refills Past Medical/Surgical History Reported: occasional caregiver, Physical therapy, and Please list all surgeries: 08/23/21bladder sling surgery. Medical: Currently wearing eyeglasses. No Spinal cord stimulator and no Pain Pump. Surgical / Procedural: No Pacemaker. Physical Trauma: Has had no fall in the last 12 months. and Denies a fear of falling. Other: Comprehensive metabolic panel 10/03/2022 she emailed a picture of her lab result I could not print out. Pertinent below: BUN 26 Creatinine 0.84 eGFR >60 TSH normal CBC unremarkable Social History Difficulty walking. Behavioral: Amount of alcohol per day: 1 genaro month?. Tobacco use: Tobacco non-user. Alcohol: Alcohol. Drug Use: Not using drugs. Allergies - No Known Allergies Family History Maternal: Kidney disease Care Team - TRACIE WATSON MD - Primary Care Health Reminders - Assess Need for CT Lung Screen satisfied 10/09/2023. - Assess Tobacco Use satisfied 10/09/2023. * Progress note Date Encounter Last Documented by 09/09/2023 PAIN MANAGEMENT FOLLOW UP Last d ocumented on 09/09/2023; 1:51 PM, RAMON OLMSTEAD APRN-FPA, SENIOR SAFETY SUPPORT MANAGER-BC; [facility] Active Problems & Conditions - Essential Hypertension - Hyperlipidemia Chief Complaint The Chief Complaint is: 2 month follow up after . History of Present Illness PHQ-9 Score: 0 Date:09/09/2023 BPI Score: Date: Oswestry Score: 16% after epidural Date:09/09/2023 SOAPP-R Score: 2 Date:09/09/2023 Pain Location: Lumbar Quality: aches, dull, sharp, sore, Radiation: None Severity: Timing: intermittent. Associated Sx: affecting walking. Aggravating Factors: getting up for first time. Alleviating Factors: pillow between legs, walking, stretching, holding on to something while she walks. Past Tx: Physical therapy Apr 2022-May 2022, back brace, L4-5 TFESI 04/18/22 and 11/05/22 [75% improvement], Intracept 04/09 L5 and S1 FRANKLIN ROBERTS is a 72 year old female. - Allergy list reviewed - Problem list reviewed - Medication reconciliation performed - Medication list reviewed - Primary Care Provider: Dr. Alex - Prescription Drug Monitoring Program website checked. 10/14/2022 - How much of the medication are you taking a day? Up to 2 a day if needed - Last dose of medication? This morning - Pain comes/goes - Pain in AM Pain in AM - Primary pain location Lower Back - Primary pain duration Depends on function - Secondary pain duration Depends on function - Secondary pain location Uper back between shoulder blade - Pain is throbbing - Pain is dull, aching - Pain is deep - Pain is heavy - Relieved by exercise/PT - Pain aggravated going up stairs - Pain aggravated sitting - Pain aggravated standing - Pain aggravated by walking - Pain aggravated lifting - Pain aggravated by working - No vertigo - Last drug screen appropriate 07/10/2022 Discussion: Here for routine follow up for low back pain. She last did PT for her back pain Apr 2022-May 2022 and is very good about continuing her home exercises daily. She had epidural in November of 2022 that was around 75% helpful for her back pain for several months. She continues to be improved after Intracept at L5-S1. She is having some increased axial back pain. We may have to consider Intracept vs MBB to thermal RFA at the upper lumbar levels. We discussed repeating epidural at this time since it did provide her with significant long lasting benefit in the past. She would like to proceed. PRIOR VISIT: Routine FU low back pain. Doing well overall. Some morning stiffness but once she gets up and moves around symptoms improve. We discussed HS muscle relaxer but she wants to hold off for now. She is able to lift more things than she was before. She has some left buttock/hip pain that we discussed consideration of SI joint vs epidural injection but we will wait until I see her in the office to do an exam. She will continue her home exercises. PRIOR VISIT: FU chronic low back pain. Patient states she is overall doing better s/p Intracept, in regards to the sharp/stabbing pain in the low back but now it is a catching/sticking type of discomfort and continues to have some of the compressive discomfort that she had before. She has severe DDD at L5-S1 likely contributing to these symptoms. She is doing her exercises. She can walk longer distances now which is an improvement. PCP stopped Ibuprofen due to renal function but she feels like she doesn't necessarily need this every night now like she did prior to Intracept. She is overall happy with her results. We discussed consideration of L5-S1 TFESI if needed in the future. She is about 4 weeks out from Intracept. Pain is still lumbosacral in nature. She still can not lift anything. Recommended so slowly start working on the strengthening exercises. We discussed goals/realistic expectations as well today. PRIOR VISIT Telehealth 05/02/23 FU after Intracept procedure at L5 and S1. She is 1 week post op and doing really well. She has minimal to no pain. She has followed post op restrictions and instructions. She has steri strips in place over one site but they have fallen off on the other. No redness/bruising/drainage to the incision sites. She states other than some mild pressure feeling like she can still feel the vertebrae compressing some she has no pain and is very pleased with her results. She is ready to begin her stretches and exercises again and start baking. We discussed increasing activity slowly as tolerated and rest if needed. I will see her in 1 month again to track progress. PRIOR VISIT Dr. Rodriguez 04/02/23 Patient returns in follow-up to further discuss the Intracept procedure which she has tentatively scheduled for the 15th of this month. She has multiple questions which were answered in detail today. Of note, the patient has multilevel disease including the L3, L2 and L1 levels which may need to be addressed in the future although her primary concern is more lumbosacral in nature. She is markedly limited in her ability to carry or objects or clean forward to increase axial low back pain with significant Modic type to endplate changes on MRI of the lumbar spine. We discussed the procedure including expected outcomes and timing of recuperation in detail today. She was instructed to have a meals on wheels driver bring her in and drive her home from the procedure. She is instructed on use of antibacterial soap on the night before morning-after. She was instructed to be NPO from midnight the morning the procedure. Preoperative at labs ordered. She like to get this done in [place]. Recommend she get these done as soon as possible not delay her planned surgery. Risks, benefits and alternatives the above treatment options were discussed in detail the patient who expressed explicit understanding and consent to proceed. Questions were elicited, asked and answered the best of our ability and to her satisfaction today. Patient returns 7 to 10 days after the procedure for wound evaluation and one month later to assess response. [place] prescription monitoring database was reviewed and found to be appropriate. PRIOR VISIT: Here for routine 3 month FU for low back pain. She continues her home exercises and stretches. She feels like she gets a lot of benefit from this. She uses the cane with walking to help with her gait. She still has pain and a compressive feeling in the low spine that gets much worse with lifting anything. Even a gallon of milk or a power from the stove increases the low back pain and she has to ask for help. She is frustrated that simple kitchen tasks that she used to easily do she has to ask for help with now. She loves to cook and bake from scratch and has to break it up tasks over a few days. She would like to be able to stand and bake for longer periods and be able to lift small items on her own. We discussed the Intracept procedure as an option as I believe this pain is due to vertebrogenic changes. She has looked over the printed materials I gave her and watched videos with her . She is concerned about possible cost. We will try to get her a quote on this before scheduling. Her MRI shows modic changes at multiple levels. She has signed the procedure specific Intracept patient authorization form. She has had pain that limits her daily activities in her low back made worse by flexing and lifting that has failed conservative therapies. She has done PT, NSAIDs, Tylenol, avoidance of aggravating activity, injections, and opioids as needed. Despite this she continues to have pain in the low back area that limits her activity. Dr Rodriguez has reviewed notes and imaging. She would be a good candidate for the Intracept procedure for better control of her vertebrogenic pain. She was given the General anesthesia pre operative information. We will see her back for H&P prior to the procedure once approved by insurance. FIRST VISIT 04/02/22: Patient referred by her primary care provider for low back pain. The patient reports low back pain for almost 10 years. It has worsened in the last 1 to 2 years to the point where it interferes with her daily activities. Pain is axial in nature only radiating to the right upper buttock. Pain is made worse with standing for any period of time. She especially notices it when she is trying to cook or bake. The longer she stands or walks she feels like her spine is becoming more and more compressed and has a lot of pressure in the low back. Trying to lift something as small as her purse is also difficult. Stairs are difficult. She cannot lay on her stomach, this worsens pain. Flexing causes pain but also sometimes feels good when she is doing her stretching. At rest/sitting she has little to no pain. She has a lot of difficulty with weakness of the left pelvic girdle. She worked on this in physical therapy and continues a home exercise program along with yoga. Currently taking ibuprofen which helps a little bit with the pain. She also uses Biofreeze or Voltaren gel. Sometimes uses an ice pack. She has seen a chiropractor for adjustments for the last several years. He stopped being beneficial in the last year or two. She reports slight leg length discrepancy with the right leg being a little bit shorter than the left. She is very upset that her pain keeps her from doing things. Otherwise she would be very active. She does not like to sit still very long. She appears to be a very healthy active 71 year old otherwise. Imaging: All relevant imaging available was personally reviewed with the patient today with the following tests and results noted: MRI lumbar spine 02/04/2022 28- dextro scoliosis of lumbar spine. Mild central canal stenosis at L1- L4. Severe spondylosis at L4- S1. Severe disc degeneration at T12- L3 and L5- S1 with endplate remodeling at L5- S1. Moderate degenerative disc disease at L3- L4 and L4- L5. Modic changes @ L1, L2, L3, L5, and S1. Per Dr Rodriguez start w/ L5 and S1 and then if necessary do L1-3. X-Ray Lumbar Spine 12/09/21 Impression: Scoliosis. Grade 1 anterolisthesis at L4- L5 and L5- S1. Multilevel severe facet arthropathy. Multilevel mild to moderate degenerative disc disease. Concave endplate deformities as can be seen with osteoporosis Current Medication - Atorvastatin Calcium 10 MG Oral Tablet One tablet daily 90 days, 0 refills - Estradiol 1 MG Oral Tablet One tablet daily 0 days, 0 refills - Lisinopril-hydroCHLOROthiazide 20-12.5 MG Oral Tablet One tablet daily 0 days, 0 refills Past Medical/Surgical History Reported: occasional caregiver, Physical therapy, and Please list all surgeries: 08/23/21bladder sling surgery. Medical: Currently wearing eyeglasses. No Spinal cord stimulator and no Pain Pump. Surgical / Procedural: No Pacemaker. Physical Trauma: Has had no fall in the last 12 months. and Denies a fear of falling. Other: Comprehensive metabolic panel 10/03/2022 she emailed a picture of her lab result I could not print out. Pertinent below: BUN 26 Creatinine 0.84 eGFR >60 TSH normal CBC unremarkable Social History Difficulty walking. Behavioral: Amount of alcohol per day: 1 genaro month?. Tobacco use: Tobacco non-user. Alcohol: Alcohol. Drug Use: Not using drugs. Allergies - No Known Allergies Family History Maternal: Kidney disease Review Of Systems Systemic: No systemic symptoms other then noted and no recent weight loss. Head: No head symptoms other then noted. Neck: No neck pain. Otolaryngeal: No otolaryngeal symptoms other than noted. Hearing loss. Cardiovascular: No cardiovascular symptoms other than noted. Pulmonary: No pulmonary symptoms other than noted. Gastrointestinal: No difficulty chewing and no dysphagia. Heartburn. Genitourinary: No genitourinary symptoms other than noted. Endocrine: No endocrine symptoms other than noted. Weakness. Hematologic: No easy bleeding and no tendency for easy bruising. Musculoskeletal: Musculoskeletal symptoms low back pain, weakness. No musculoskeletal symptoms other than noted. Back pain, ankle joint swelling, and pain localized to one or more joints. Neurological: No neurological symptoms other than noted and no fainting passing out with needles or medical procedures. Psychological: No sleep apnea. Skin: No skin symptoms other than noted. Physical Findings - Vitals taken 09/09/2023 01:22 pm BP-Sitting R 128/78 mmHg BP Cuff Size Regular Pulse Rate-Sitting 66 bpm Temp-Temporal 96.4 F Height 60 in Weight 128 lbs Body Mass Index 25 kg/m2 Body Surface Area 1.5 m2 Pain Level 2 Pain Level Note Bottom of the buttock. Oxygen Saturation 98 % Psychiatric: Psychiatric: Value PHQ9 score: 2 Constitutional: Well developed. Well nourished. No acute distress. HEENT: NC/AT. Anicteric. Clear Conjunctiva. PERRLA. MM's pink/moist. No discharge via nares. No discharge via EAC. Neck supple. No thyromegally. No palpable masses. No lymphadenopathy in cervical chain bilaterally. CVS: RRR. No murmurs. No peripheral edema. Peripheral pulses palpable in all extremities. Pulmonary: CTA bilaterally. No wheezes. No rales. No crackles. No rubs. Normal chest expansion. Spine/MSK: Nontender lumbar spine. Nontender SI joint's. Negative straight leg test bilaterally. Negative Darrell's and thigh thrust left, positive right. Negative logrolling bilaterally. Negative facet loading on the right, positive facet loading on the left. Pain with initial flexion then better with further flexing. Weak L hip girdle muscles. Can not stand on left leg with out holding onto something. R leg is not weak. R shoulder and pelvis sits a bit higher than the left. Pain with lifting small amount of weight. Gait: Not antalgic. No steppage gait. No Trendelenburg gait. No circumspected gait pattern. Heel walk normal. Toe walk normal. Tandem gait normal. Neuro: Awake. Alert. Oriented x3. DTR's intact in all extremities. DTR's equal in all extremities. No sensory deficit. No motor deficit. Psych: No apparent distress. Mood normal. Affect normal. No pain behaviors. Skin: Normal. Purvis, warm, dry. Tests Educational Testing: Questionnaires PHQ-9: Value SOAPP-R: total score 6 Assessment - [M51.36 - Other intervertebral disc degeneration, lumbar region] Lumbar disc degeneration - [M47.896 - Other spondylosis, lumbar region] Lumbar spondylosis - [M54.50 - Low back pain, unspecified] Low back pain - [M54.51 - Vertebrogenic low back pain] Vertebrogenic low back pain - [M41.9 - Scoliosis, unspecified] Dextroscoliosis - [M48.061 - Spinal stenosis, lumbar region without neurogenic claudication] Lumbar stenosis - [G89.4 - Chronic pain syndrome] Chronic pain syndrome Therapy - Reviewed & agreed to staff entries. - Clinical summary provided to patient. Counseling/Education - Pill Count: two Tramadol Discussed Continue home stretches and strengthening exercises. Advance slowly as tolerated. Schedule lumbar epidural steroid injection. FU after injections. Consider steroid injection. Consider Intracept at L2, L3, L4. Consider ablation. Risks, benefits and alternatives (including doing nothing) were discussed with the patient who agreed to proceed with interventional treatment despite risk and agreement that potential benefits outweighs the chance of significant harm. Plan StartCited - Spinal stenosis, lumbar region without neurogenic sheryl Pain Management CPT/Epidural Steroid Inj: Transforaminal, Lumbar or Sacral 1st level Instructions: bilateral L4-5 transforaminal epidural steroid injection under fluoroscopy traMADol HCl 50 MG tablet One tablet daily as needed, 30 days, 0 refills EndCited Patient was seen today for 4 chronic unstable conditions of the lumbosacral spine, and central nervous system.Without treatment patient is at risk for significant functional limitations resulting in diminished quality of life and impaired age appropriate activities of daily living. Multiple documents have been reviewed in combination with today's evaluation including imaging studies, outside provider notes, laboratory data, patient self-report questionnaires, and [place] prescription monitoring database entries. Significant social barriers exist to compliance resulting in limited prognosis. Practice Management Use of tobacco assessment performed Review of medications documented; Screening for adult depression: impression and score 0; [82204] Established outpatient, medically appropriate H&P, moderate level decision making, 30-39 minutes. A total of 14 minutes were spent on this patient's care and evaluation, as above. Results of this interaction were communicated directly to the patient's referring and/or primary care provider. All imaging studies and test results discussed in the above document were personally reviewed and evaluated by the performing provider. For all patients on acute or chronic opioids, ongoing need for opioid analgesia is assessed at each visit with consideration of discontinuation or wean to lowest effective dose when possible and appropriate. Contents of this document have been edited for correctness, but may be subject to typographical or wire strander errors. Verify all diagnoses, medications, dosages, and patient instructions with patient and/or the originator of this document. Care Team - TRACIE WATSON MD - Primary Care Health Reminders - Assess Blood Pressure satisfied 09/09/2023. - Assess BMI satisfied 09/09/2023. - Assess Need for CT Lung Screen satisfied 09/09/2023. - Assess Tobacco Use satisfied 09/09/2023. - Depression Screening satisfied 09/09/2023. * Progress note Date Encounter Last Documented by 07/13/2023 TELEHEALTH Last documented on 07/13/2023; 8:49 AM, RAMON OLMSTEAD PUBLIC RELATIONS MANAGER-FPA, SENIOR SAFETY SUPPORT MANAGER-BC; [facility] Active Problems & Conditions - Essential Hypertension - Hyperlipidemia Chief Complaint The Chief Complaint is: Routine pain follow up. History of Present Illness PHQ-9 Score: 0 Date:03/2023 BPI Score: Date: Oswestry Score: 16% after epidural Date:11/13/2022 SOAPP-R Score: 2 Date:07/10/2022 Pain Location: Lumbar Quality: aches, dull, sharp, sore, Radiation: None Severity: Timing: intermittent. Associated Sx: affecting walking. Aggravating Factors: getting up for first time. Alleviating Factors: pillow between legs, walking, stretching, holding on to something while she walks. Past Tx: Physical therapy Apr 2022-May 2022, back brace, L4-5 TFESI 04/18/22 and 11/05/22 [75% improvement], Intracept 04/09 L5 and S1 FRANKLIN ROBERTS is a 72 year old female. - Allergy list reviewed - Problem list reviewed - Medication reconciliation performed - Medication list reviewed - Prescription Drug Monitoring Program website checked. 10/14/2022 - How much of the medication are you taking a day? 1 PRN - Last dose of medication? Last week. ' - Pain comes/goes - Pain in AM Pain in AM - Primary pain location Lower Back - Primary pain duration Depends on function - Secondary pain duration Depends on function - Secondary pain location Uper back between shoulder blade - Pain is throbbing - Pain is dull, aching - Pain is deep - Pain is heavy - Relieved by exercise/PT - Pain aggravated going up stairs - Pain aggravated sitting - Pain aggravated standing - Pain aggravated by walking - Pain aggravated lifting - Pain aggravated by working - No vertigo - Last drug screen appropriate 07/10/2022 Discussion: Routint FU low back pain. Doing well overall. Some morning stiffness but once she gets up and moves around symptoms improve. We discussed HS muscle relaxer but she wants to hold off for now. She is able to lift more things than she was before. She has some left buttock/hip pain that we discussed consideration of SI joint vs epidural injection but we will wait until I see her in the office to do an exam. She will continue her home exercises. PRIOR VISIT: FU chronic low back pain. Patient states she is overall doing better s/p Intracept, in regards to the sharp/stabbing pain in the low back but now it is a catching/sticking type of discomfort and continues to have some of the compressive discomfort that she had before. She has severe DDD at L5-S1 likely contributing to these symptoms. She is doing her exercises. She can walk longer distances now which is an improvement. PCP stopped Ibuprofen due to renal function but she feels like she doesn't necessarily need this every night now like she did prior to Intracept. She is overall happy with her results. We discussed consideration of L5-S1 TFESI if needed in the future. She is about 4 weeks out from Intracept. Pain is still lumbosacral in nature. She still can not lift anything. Recommended so slowly start working on the strengthening exercises. We discussed goals/realistic expectations as well today. PRIOR VISIT Telehealth 05/02/23 FU after Intracept procedure at L5 and S1. She is 1 week post op and doing really well. She has minimal to no pain. She has followed post op restrictions and instructions. She has steri strips in place over one site but they have fallen off on the other. No redness/bruising/drainage to the incision sites. She states other than some mild pressure feeling like she can still feel the vertebrae compressing some she has no pain and is very pleased with her results. She is ready to begin her stretches and exercises again and start baking. We discussed increasing activity slowly as tolerated and rest if needed. I will see her in 1 month again to track progress. PRIOR VISIT Dr. Rodriguez 04/02/23 Patient returns in follow-up to further discuss the Intracept procedure which she has tentatively scheduled for the of this month. She has multiple questions which were answered in detail today. Of note, the patient has multilevel disease including the L3, L2 and L1 levels which may need to be addressed in the future although her primary concern is more lumbosacral in nature. She is markedly limited in her ability to carry or objects or clean forward to increase axial low back pain with significant Modic type to endplate changes on MRI of the lumbar spine. We discussed the procedure including expected outcomes and timing of recuperation in detail today. She was instructed to have a meals on wheels driver bring her in and drive her home from the procedure. She is instructed on use of antibacterial soap on the night before morning-after. She was instructed to be NPO from midnight the morning the procedure. Preoperative at labs ordered. She like to get this done in [place]. Recommend she get these done as soon as possible not delay her planned surgery. Risks, benefits and alternatives the above treatment options were discussed in detail the patient who expressed explicit understanding and consent to proceed. Questions were elicited, asked and answered the best of our ability and to her satisfaction today. Patient returns 7 to 10 days after the procedure for wound evaluation and one month later to assess response. [place] prescription monitoring database was reviewed and found to be appropriate. PRIOR VISIT: Here for routine 3 month FU for low back pain. She continues her home exercises and stretches. She feels like she gets a lot of benefit from this. She uses the cane with walking to help with her gait. She still has pain and a compressive feeling in the low spine that gets much worse with lifting anything. Even a gallon of milk or a power from the stove increases the low back pain and she has to ask for help. She is frustrated that simple kitchen tasks that she used to easily do she has to ask for help with now. She loves to cook and bake from scratch and has to break it up tasks over a few days. She would like to be able to stand and bake for longer periods and be able to lift small items on her own. We discussed the Intracept procedure as an option as I believe this pain is due to vertebrogenic changes. She has looked over the printed materials I gave her and watched videos with her . She is concerned about possible cost. We will try to get her a quote on this before scheduling. Her MRI shows modic changes at multiple levels. She has signed the procedure specific Intracept patient authorization form. She has had pain that limits her daily activities in her low back made worse by flexing and lifting that has failed conservative therapies. She has done PT, NSAIDs, Tylenol, avoidance of aggravating activity, injections, and opioids as needed. Despite this she continues to have pain in the low back area that limits her activity. Dr Rodriguez has reviewed notes and imaging. She would be a good candidate for the Intracept procedure for better control of her vertebrogenic pain. She was given the General anesthesia pre operative information. We will see her back for H&P prior to the procedure once approved by insurance. FIRST VISIT 04/02/22: Patient referred by her primary care provider for low back pain. The patient reports low back pain for almost 10 years. It has worsened in the last 1 to 2 years to the point where it interferes with her daily activities. Pain is axial in nature only radiating to the right upper buttock. Pain is made worse with standing for any period of time. She especially notices it when she is trying to cook or bake. The longer she stands or walks she feels like her spine is becoming more and more compressed and has a lot of pressure in the low back. Trying to lift something as small as her purse is also difficult. Stairs are difficult. She cannot lay on her stomach, this worsens pain. Flexing causes pain but also sometimes feels good when she is doing her stretching. At rest/sitting she has little to no pain. She has a lot of difficulty with weakness of the left pelvic girdle. She worked on this in physical therapy and continues a home exercise program along with yoga. Currently taking ibuprofen which helps a little bit with the pain. She also uses Biofreeze or Voltaren gel. Sometimes uses an ice pack. She has seen a chiropractor for adjustments for the last several years. He stopped being beneficial in the last year or two. She reports slight leg length discrepancy with the right leg being a little bit shorter than the left. She is very upset that her pain keeps her from doing things. Otherwise she would be very active. She does not like to sit still very long. She appears to be a very healthy active 71 year old otherwise. Imaging: All relevant imaging available was personally reviewed with the patient today with the following tests and results noted: MRI lumbar spine 02/04/2022 28- dextro scoliosis of lumbar spine. Mild central canal stenosis at L1- L4. Severe spondylosis at L4- S1. Severe disc degeneration at T12- L3 and L5- S1 with endplate remodeling at L5- S1. Moderate degenerative disc disease at L3- L4 and L4- L5. Modic changes @ L1, L2, L3, L5, and S1. Per Dr Rodriguez start w/ L5 and S1 and then if necessary do L1-3. X-Ray Lumbar Spine 12/09/21 Impression: Scoliosis. Grade 1 anterolisthesis at L4- L5 and L5- S1. Multilevel severe facet arthropathy. Multilevel mild to moderate degenerative disc disease. 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 Medical: Currently wearing eyeglasses. No Spinal cord stimulator and no Pain Pump. Surgical / Procedural: No Pacemaker. Physical Trauma: Has had no fall in the last 12 months. and Denies a fear of falling. Other: Comprehensive metabolic panel 10/03/2022 she emailed a picture of her lab result I could not print out. Pertinent below: BUN 26 Creatinine 0.84 eGFR >60 TSH normal CBC unremarkable Social History Difficulty walking. Behavioral: Amount of alcohol per day: 1 genaro month?. Tobacco use: Tobacco non-user. Alcohol: Alcohol. Drug Use: Not using drugs. Allergies - No Known Allergies Family History Maternal: Kidney disease Review Of Systems Systemic: No systemic symptoms other then noted and no recent weight loss. Head: No head symptoms other then noted. Neck: No neck pain. Otolaryngeal: No otolaryngeal symptoms other than noted. Hearing loss. Cardiovascular: No cardiovascular symptoms other than noted. Pulmonary: No pulmonary symptoms other than noted. Gastrointestinal: No difficulty chewing and no dysphagia. Heartburn. Genitourinary: No genitourinary symptoms other than noted. Endocrine: No endocrine symptoms other than noted. Weakness. Hematologic: No easy bleeding and no tendency for easy bruising. Musculoskeletal: Musculoskeletal symptoms low back pain, weakness. No musculoskeletal symptoms other than noted. Back pain, ankle joint swelling, and pain localized to one or more joints. Neurological: No neurological symptoms other than noted and no fainting passing out with needles or medical procedures. Psychological: No sleep apnea. Skin: No skin symptoms other than noted. Physical Findings - Vitals taken 07/13/2023 08:33 am BP-Sitting L 129/77 mmHg BP Cuff Size Regular Temp-Temporal 97.2 F Height 60 in Weight 129 lbs Body Mass Index 25.2 kg/m2 Body Surface Area 1.5 m2 Pain Level 2 Pain Level Note Head Psychiatric: Psychiatric: Value PHQ9 score: 2 Constitutional: Well developed. Well nourished. No acute distress. HEENT: NC/AT. Anicteric. Clear Conjunctiva. PERRLA. MM's pink/moist. No discharge via nares. No discharge via EAC. Neck supple. No thyromegally. No palpable masses. No lymphadenopathy in cervical chain bilaterally. CVS: RRR. No murmurs. No peripheral edema. Peripheral pulses palpable in all extremities. Pulmonary: CTA bilaterally. No wheezes. No rales. No crackles. No rubs. Normal chest expansion. Spine/MSK: Nontender lumbar spine. Nontender SI joint's. Negative straight leg test bilaterally. Negative Darrell's and thigh thrust bilaterally. Negative logrolling bilaterally. Negative facet loading on the right, positive facet loading on the left. Pain with initial flexion then better with further flexing. Weak L hip girdle muscles. Can not stand on left leg with out holding onto something. R leg is not weak. R shoulder and pelvis sits a bit higher than the left. Gait: Not antalgic. No steppage gait. No Trendelenburg gait. No circumspected gait pattern. Heel walk normal. Toe walk normal. Tandem gait normal. Neuro: Awake. Alert. Oriented x3. DTR's intact in all extremities. DTR's equal in all extremities. No sensory deficit. No motor deficit. Psych: No apparent distress. Mood normal. Affect normal. No pain behaviors. Skin: Normal. Purvis, warm, dry. Tests Educational Testing: Questionnaires PHQ-9: Value SOAPP-R: total score 6 Assessment - [M51.36 - Other intervertebral disc degeneration, lumbar region] Lumbar disc degeneration - [M47.896 - Other spondylosis, lumbar region] Lumbar spondylosis - [M54.50 - Low back pain, unspecified] Low back pain - [M54.51 - Vertebrogenic low back pain] Vertebrogenic low back pain - [M41.9 - Scoliosis, unspecified] Dextroscoliosis - [M48.061 - Spinal stenosis, lumbar region without neurogenic claudication] Lumbar stenosis - [G89.4 - Chronic pain syndrome] Chronic pain syndrome Therapy - Reviewed & agreed to staff entries. - Clinical summary provided to patient. Counseling/Education - Pill Count: 20 Tramadol Discussed Continue home stretches and strengthening exercises. Advance slowly as tolerated. FU 2 months, sooner if needed. Plan Patient was seen today for 4 chronic unstable conditions of the lumbosacral spine, and central nervous system.Without treatment patient is at risk for significant functional limitations resulting in diminished quality of life and impaired age appropriate activities of daily living. Multiple documents have been reviewed in combination with today's evaluation including imaging studies, outside provider notes, laboratory data, patient self-report questionnaires, and [place] prescription monitoring database entries. Significant social barriers exist to compliance resulting in limited prognosis. Practice Management Use of tobacco assessment performed Review of medications documented; Screening for adult depression: impression and score 0; [11079] Established outpatient, medically appropriate H&P, moderate level decision making, 30-39 minutes. A total of 14 minutes were spent on this patient's care and evaluation, as above. Results of this interaction were communicated directly to the patient's referring and/or primary care provider. All imaging studies and test results discussed in the above document were personally reviewed and evaluated by the performing provider. For all patients on acute or chronic opioids, ongoing need for opioid analgesia is assessed at each visit with consideration of discontinuation or wean to lowest effective dose when possible and appropriate. Contents of this document have been edited for correctness, but may be subject to typographical or wire strander errors. Verify all diagnoses, medications, dosages, and patient instructions with patient and/or the originator of this document. Telehealth Visit: Audio and video. Patient called from their home. Provider located at the [facility] Clinical Services office. Patient consents to bill insurance for this visit. No exam completed. If at anytime it was felt patient need to be evaluated arrangements would be made. Care Team - TRACIE WATSON MD - Primary Care Health Reminders - Assess Blood Pressure satisfied 07/13/2023. - Assess BMI satisfied 07/13/2023. - Assess Need for CT Lung Screen satisfied 07/13/2023. - Assess Tobacco Use satisfied 07/13/2023. - Depression Screening satisfied 07/13/2023.
--- OUTSIDE RECORDS SUMMARY | 2024-05-27 05:43 | XMS_ITS | Clinical Summary ---
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 Multiple documents have been reviewed in combination with today's evaluation including imaging studies, outside provider notes, laboratory data, patient self-report questionnaires, and [place] prescription monitoring database entries. Significant social barriers exist to compliance resulting in limited prognosis. 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 OFFICE WORKER-BC Last Documented On 4 8:49AM ; [facility] Education and Decision Aids were provided during visit for: Pill Count: two Tramadol Last Documented On 4 8:35AM ; [facility] Assessments Includes: Assessments from this encounter Findings - [M25.552 - Pain in left hip] Left Hip pain - Last Documented On 10/21/2023 8:59AM ; [facility] - [M51.36 - Other intervertebral disc degeneration, lumbar region] Lumbar disc degeneration - Last Documented On 10/21/2023 8:59AM ; [facility] - [M47.896 - Other spondylosis, lumbar region] Lumbar spondylosis - Last Documented On 10/21/2023 8:59AM ; [facility] - [M54.50 - Low back pain, unspecified] Low back pain - Last Documented On 10/21/2023 8:59AM ; [facility] - [M54.51 - Vertebrogenic low back pain] Vertebrogenic low back pain - Last Documented On 10/21/2023 8:59AM ; [facility] - [M41.9 - Scoliosis, unspecified] Dextroscoliosis - Last Documented On 10/21/2023 8:59AM ; [facility] - [M48.061 - Spinal stenosis, lumbar region without neurogenic claudication] Lumbar stenosis - Last Documented On 10/21/2023 8:59AM ; [facility] - [G89.4 - Chronic pain syndrome] Chronic pain syndrome - Last Documented On 10/21/2023 8:59AM ; [facility] Instructions Includes: Instructions from this encounter Education and Decision Aids were provided during visit for: Pill Count: two Tramadol Last Documented On 4 8:35AM ; [facility] Medical Equipment - Implanted Devices Includes: Current Devices No Medical Equipment Recorded Medications Includes: Medications discussed during this encounter and other current Medications New / Renewed during this visit RAMON [facility] PEDIATRIC OCCUPATIONAL THERAPIST-FPA, CASH OFFICE WORKER-BC on 10/21/2023 traMADol HCl 50 MG Oral Tablet Provider: RAMON [facility] PEDIATRIC OCCUPATIONAL THERAPIST- FPA CASH OFFICE WORKER-BC 30 day supply: 30 tablet, 0 refills Diagnosis: Spinal stenosis, lumbar region without neurogenic sheryl One tablet daily as needed [facility] [address], [address] - Last Documented On 4 9:05AM By RAMON MORALESNGOZI ; [facility] Current Medications (continue as prescribed) Atorvastatin Calcium 10 MG Oral Tablet 04/15/2023 Pr ovider: TRACIE WATSON MD Diagnosis: Last Documented On 3 3:06PM By RAMON MORALESNGOZI ; [facility] Estradiol 1 MG Oral Tablet 04/02/2022 Provider: Diagnosis: Last Documented On 2 9:37AM By RAMON MCLAUGHLIN ; [facility] Lisinopril-hydroCHLOROthiazide 20-12.5 MG Oral Tablet 04/02/2022 Provider: Diagnosis: Last Documented On 2 9:37AM By RAMON MCLAUGHLIN ; [facility] Medications Administered Includes: Administered Medications from this encounter No Administered Medications Recorded Vital Signs Includes: Vital Signs from this encounter Vital Name 10/21/2023 08:36A Blood Pressure Sitting L 132/76 BP Cuff Size Regular Temp-Temporal 98.1 Height (in) 60 Weight (lb) 128 Body Mass Index 25 Body Surface Area 1.5 Pain Level 2 Last Documented: On 10/21/2023 8:37AM ; [facility] Results Includes: Results discussed during this encounter No Results Recorded For Specified Dates History of Present Illness Includes: History of Present Illness from this encounter HPI PHQ-9 Score: 0 Date:09/09/2023PI Score: Date:Oswestry Score: 16% after epidural Date:09/09/2023SOAPP-R Score: 2 Date:09/09/2023ain Location: Lumbar Quality: aches, dull, sharp, sore, Radiation: None Severity: Timing: intermittent. Associated Sx: affecting walking. Aggravating Factors: getting up for first time. Alleviating Factors: pillow between legs, walking, stretching, holding on to something while she walks. Past Tx: Physical therapy Apr 2022-May 2022, back brace, L4-5 TFESI 04/18/22 and 11/05/22 [75% improvement], Intracept 04/09 L5 and S1 , L4-5 TFESI 10/14/23 40- 50% FRANKLIN ROBERTS is a 72 year old [...] today. She was instructed to have a service car driver bring her in and drive her home from the procedure. She is instructed on use of antibacterial soap on the night before morning-after. She was instructed to be NPO from midnight the morning the procedure. Preoperative at labs ordered. She like to get this done in [place]. Recommend she get these done as soon [...] and one month later to assess response. [place] prescription monitoring database was reviewed and found [...] and results noted: MRI lumbar spine 02/04/2022 28? dextro scoliosis of lumbar spine. Mild central [...] deformities as can be seen with osteoporosis Social History Description Last Updated Tobacco non-user 04/02/2022 Last Documented On 4 8:29AM ; [facility] Alcohol 04/02/2022 Last Documented On 4 8:29AM ; [facility] Amount of alcohol per day: 1 genaro month? 04/02/2022 Last Documented On 4 8:29AM ; [facility] Difficulty walking 04/02/2022 Last Documented On 4 8:29AM ; [facility] Not using drugs 04/02/2022 Last Documented On 4 8:29AM ; [facility] Smoking Status Unknown Procedures and Surgical History Includes: Procedures from this encounter Procedures Code Diagnosis Performing Provider Service L ocation Service Date use of tobacco assessment performed 1000F Last Documented On 4 8:29AM ; [facility] review of medications documented 1160F Last Documented On 4 8:29AM ; [facility] screening for adult depression: impressi on and score 0 Last Documented On 4 8:29AM ; [facility] Reviewed & agreed to staff entries. Last Documented On 4 8:29AM ; [facility] Clinical summary provided to patient Last Documented On 4 8:29AM ; [facility] SOAPP-R: total score 6 Last Documented On 4 8:29AM ; [facility] Surgical History Last Updated No Pacemaker 04/02/2022 Last Documented On 4 8:29AM ; [facility] Medical History Includes: Medical History addressed during this encounter Description Last Updated Comprehensive metabolic pane l 10/03/2022 she emailed a picture of her lab result I could not print out. 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 Last Documented On 4 8:29AM ; [facility] Currently wearing eyeglasses 04/02/2022 Last Documented On 4 8:29AM ; [facility] No Pain Pump 04/02/2022 Last Documented On 4 8:29AM ; [facility] No Spinal cord stimulator 04/02/2022 Last Documented On 4 8:29AM ; [facility] Physical therapy 04/02/2022 Last Documented On 4 8:29AM ; [facility] Please list all surgeries: 08/23/21bladde r sling surgery 04/02/2022 Last Documented On 4 8:29AM ; [facility] Denies a fear of falling. 04/02/2022 Last Documented On 4 8:29AM ; [facility] Has had no fall in the last 12 months. 1 06/02/2021 Last Documented On 4 8:29AM ; [facility] Family History Includes: Family History addressed during this encounter Description Last Updated Maternal history of family history of ki dney disease 04/02/2022 Last Documented On 4 8:29AM ; [facility] Review of Systems Includes: Review of Systems from this encounter Systemic: No systemic symptoms other then noted [...] Skin: No skin symptoms other than noted. Mental Status Includes: Mental Status from this encounter No Mental Status Recorded Functional Status Includes: Functional Status from this encounter No Functional Status Recorded Physical Exam Includes: Physical Exam from this encounter Allergies Includes: Active Allergies No Known Allergies Encounters Encounter Provider Location Date Check-In Time Check-Out Time Diagnosis [facility] RAMON [facility] A[facility] PEDIATRIC OCCUPATIONAL THERAPIST-FPA, CASH OFFICE WORKER-BC [facility] 10/21/19 24 8:28AM 9:01AM Lumbar Spondylosis,Spin al Stenosis Lumbar,Chronic Pain Syndrome,Interve rtebral Disc Degeneration - Lumbar,Dorsopath y Low Back Pain,Dorsopathy Low Back Pain Vertebrogenic,Sc oliosis Dextroscoliosis, Left Hip Pain Insurance Includes: Active Insurance Policies Plan Name Member ID Group # Subscriber Relationship Effect ignacio Dates 1 - MEDICARE PART A CLAIMS/NGS [id number] FRANKLIN Saleh 2 - MUTUAL Rayneer [id number] FRANKLIN Saleh Clinical Notes Includes: Clinical Notes from this encounter * Progress note Date Encounter Last Documented by 10/21/2023 TELEHEALTH Last documented on 10/21/2023; 8:59 AM, RAMON [facility], [facility]; [facility] Active Problems & Conditions - [...] today. She was instructed to have a service car driver bring her in and drive her home from the procedure. She is instructed on use of antibacterial soap on the night before morning-after. She was instructed to be NPO from midnight the morning the procedure. Preoperative at labs ordered. She like to get this done in [place]. Recommend she get these done as soon [...] and one month later to assess response. [place] prescription monitoring database was reviewed and found [...] if necessary do L1-3. X-Ray Lumbar Spine 8/8/22 Impression: Scoliosis. 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 No pain behaviors. Skin: Normal. Kulm, warm, dry. Tests Educational Testing: Questionnaires PHQ-9: [...] notes, laboratory data, patient self-report questionnaires, and [place] prescription monitoring database entries. Significant social barriers exist to compliance resulting in limited prognosis. Practice Management Use of tobacco assessment performed Review of medications documented; Screening for adult depression: impression and score 0; [61030] Established outpatient, medically appropriate H&P, moderate level [...] but may be subject to typographical or rock star errors. Verify all diagnoses, medications, dosages, and [...]
--- OUTSIDE RECORDS SUMMARY | 2024-05-27 05:44 | XMS_ITS | Clinical Summary ---
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 Significant social barriers exist to compliance resulting in limited prognosis. - Last Documented On 07/13/2023 8:49AM ; [facility] Pending Tests Order Diagnosis Results Due Ordering P rovider X-ray - OUTSIDE XRAYS SACROL ILLIAC JOINTS Low back pain, unspecified 10/21/23 RAMON CHAVARRIALP LEAF SUCKER OPERATOR-FPA, PLANT SPRAYER-BC Last Documented On 4 8:49AM ; [facility] X-ray - OUTSIDE XRAYS HIP UNI 2 VIEWS LEFT Pain in left hip 10/21/23 LISSETTE MARCELINO Last Documented On 4 8:49AM ; [facility] Education and Decision Aids were provided during visit for: Pill Count: 20 Tramadol Last Documented On 4 8:32AM ; [facility] Assessments Includes: Assessments from this encounter Findings - [M51.36 - Other intervertebral disc degeneration, lumbar region] Lumbar disc degeneration - Last Documented On 07/13/2023 8:49AM ; [facility] - [M47.896 - Other spondylosis, lumbar region] Lumbar spondylosis - Last Documented On 07/13/2023 8:49AM ; [facility] - [M54.50 - Low back pain, unspecified] Low back pain - Last Documented On 07/13/2023 8:49AM ; [facility] - [M54.51 - Vertebrogenic low back pain] Vertebrogenic low back pain - Last Documented On 07/13/2023 8:49AM ; [facility] - [M41.9 - Scoliosis, unspecified] Dextroscoliosis - Last Documented On 07/13/2023 8:49AM ; [facility] - [M48.061 - Spinal stenosis, lumbar region without neurogenic claudication] Lumbar stenosis - Last Documented On 07/13/2023 8:49AM ; [facility] - [G89.4 - Chronic pain syndrome] Chronic pain syndrome - Last Documented On 07/13/2023 8:49AM ; [facility] Instructions Includes: Instructions from this encounter Education and Decision Aids were provided during visit for: Pill Count: 20 Tramadol Last Documented On 4 8:32AM ; [facility] Medical Equipment - Implanted Devices Includes: Current Devices No Medical Equipment Recorded Medications Includes: Medications discussed during this encounter and other current Medications Current Medications (continue as prescribed) traMADol HCl 50 MG Oral Tablet 10/21/2023 Provider: LISSETTE JONES Diagnosis: Spinal stenosis, lumbar region without neurogenic sheryl One tablet daily as needed Last Documented On 4 9:05AM By RAMON MCLAUGHLIN ; [facility] Atorvastatin Calcium 10 MG Oral Tablet 04/15/2023 Pr ovider: TRACIE WATSON MD Diagnosis: Last Documented On 3 3:06PM By RAMON OLMSTEAD [facility] ; [facility] Estradiol 1 MG Oral Tablet 04/02/2022 Provider: Diagnosis: Last Documented On 2 9:37AM By RAMON MCLAUGHLIN ; [facility] Lisinopril-hydroCHLOROthiazide 20-12.5 MG Oral Tablet 04/02/2022 Provider: Diagnosis: Last Documented On 2 9:37AM By RAMON PARIS ; [facility] Medications Administered Includes: Administered Medications from this encounter No Administered Medications Recorded Vital Signs Includes: Vital Signs from this encounter Vital Name 07/13/2023 08:33A Blood Pressure Sitting L 129/77 BP Cuff Size Regular Temp-Temporal 97.2 Height (in) 60 Weight (lb) 129 Body Mass Index 25.2 Body Surface Area 1.5 Pain Level 2 Last Documented: On 07/13/2023 8:33AM ; [facility] Results Includes: Results discussed during this encounter No Results Recorded For Specified Dates History of Present Illness Includes: History of Present Illness from this encounter HPI PHQ-9 Score: 0 Date:PI Score: Date:Oswestry Score: 16% after epidural Date:11/13/2022SOAPP-R Score: 2 Date:07/10/2022ain Location: Lumbar Quality: aches, dull, sharp, sore, [...] today. She was instructed to have a deliver driver bring her in and drive her home from the procedure. She is instructed on use of antibacterial soap on the night before morning-after. She was instructed to be NPO from midnight the morning the procedure. Preoperative at labs ordered. She like to get this done in [place]. Recommend she get these done as soon [...] and one month later to assess response. [place] prescription monitoring database was reviewed and found [...] Tobacco non-user 04/02/2022 Last Documented On 4 8:28AM ; [facility] Alcohol 04/02/2022 Last Documented On 4 8:28AM ; [facility] Amount of alcohol per day: 1 genaro month? 04/02/2022 Last Documented On 4 8:28AM ; [facility] Difficulty walking 04/02/2022 Last Documented On 4 8:28AM ; [facility] Not using drugs 04/02/2022 Last Documented On 4 8:28AM ; [facility] Smoking Status Unknown Procedures and Surgical History Includes: Procedures from this encounter Procedures Code Diagnosis Performing Provider Service Location Service Date TELEHEALTH VISIT [facility] (TELEMEDICINE SERVICE VIA [employer], POLICY CRITERIA APPLIED) G2025 Other spondylosis, lumbar region, Spinal stenosis, lumbar region without neurogenic sheryl, Vertebrogenic low back pain, Low back pain, unspecified RAMON Alma Rosa OLMSTEAD LEAF SUCKER OPERATOR-FPA, PLANT SPRAYER-BC [facility] 07/13/2023 Last Documented On 4 2:44PM ; [facility] use of tobacco assessment performed 1000F Last Documented On 4 8:28AM ; [facility] review of medications documented 1160F Last Documented On 4 8:28AM ; [facility] screening for adult depression: impressi on and score 0 Last Documented On 4 8:28AM ; [facility] Reviewed & agreed to staff entries. Last Documented On 4 8:28AM ; [facility] Clinical summary provided to patient Last Documented On 4 8:28AM ; [facility] SOAPP-R: total score 6 Last Documented On 4 8:28AM ; [facility] Surgical History Last Updated No Pacemaker 04/02/2022 Last Documented On 4 8:28AM ; [facility] Medical History Includes: Medical History addressed during this encounter Description Last Updated Comprehensive metabolic pane l 10/03/2022 she emailed a picture of her lab result I could not print out. 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 04/02/2022 Last Documented On 4 8:28AM ; [facility] Currently wearing eyeglasses 04/02/2022 Last Documented On 4 8:28AM ; [facility] No Pain Pump 04/02/2022 Last Documented On 4 8:28AM ; [facility] No Spinal cord stimulator 04/02/2022 Last Documented On 4 8:28AM ; [facility] Physical therapy 04/02/2022 Last Documented On 4 8:28AM ; [facility] Please list all surgeries: 08/23/21bladde r sling surgery 04/02/2022 Last Documented On 4 8:28AM ; [facility] Denies a fear of falling. 04/02/2022 Last Documented On 4 8:28AM ; [facility] Has had no fall in the last 12 months. 1 06/02/2021 Last Documented On 4 8:28AM ; [facility] Family History Includes: Family History addressed during this encounter Description Last Updated Maternal history of family history of ki dney disease 04/02/2022 Last Documented On 4 8:28AM ; [facility] Review of Systems Includes: Review of Systems [...] Date Check-In Time Check-Out Time Diagnosis TELEHEALTH LISSETTE MARCELINO [facility] 07/13/19 24 8:26AM 8:58AM Lumbar Spondylosis,Spinal Stenosis Lumbar,Chronic Pain Syndrome,Intervert ebral Disc Degeneration - Lumbar,Dorsopathy Low Back Pain,Dorsopathy Low Back Pain Vertebrogenic,Scol iosis Dextroscoliosis Insurance Includes: Active Insurance Policies Plan Name Member ID Group # Subscriber Relationship Effect ignacio Dates 1 - MEDICARE PART A CLAIMS/NGS [id number] FRANKLIN Saleh 2 - [employer] [id number] FRANLKIN Saleh Clinical Notes Includes: Clinical Notes from this encounter * Progress note Date Encounter Last Documented by 07/13/2023 TELEHEALTH Last documented on 07/13/2023; 8:49 AM, LISSETTE MARCELINO; [facility] Active Problems & Conditions - [...] today. She was instructed to have a deliver driver bring her in and drive her home from the procedure. She is instructed on use of antibacterial soap on the night before morning-after. She was instructed to be NPO from midnight the morning the procedure. Preoperative at labs ordered. She like to get this done in [place]. Recommend she get these done as soon [...] and one month later to assess response. 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 No pain behaviors. Skin: Normal. [place], warm, dry. Tests Educational Testing: Questionnaires PHQ-9: [...] notes, laboratory data, patient self-report questionnaires, and [employer] prescription monitoring database entries. Significant social barriers exist to compliance resulting in limited prognosis. Practice Management Use of tobacco assessment performed Review of medications documented; Screening for adult depression: impression and score 0; [34428] Established outpatient, medically appropriate H&P, moderate level [...] but may be subject to typographical or blue print control clerk errors. Verify all diagnoses, medications, dosages, and patient instructions with patient and/or the originator of this document. Telehealth Visit: Audio and video. Patient called from their home. Provider located at the [facility] office. Patient consents to bill [...]
--- OUTSIDE RECORDS SUMMARY | 2024-05-27 05:44 | XMS_ITS | Clinical Summary ---
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, NEUROPSYCHIATRIST-BC Active Last Documented On 2 12:00PM ; [facility] Essential Hypertension Unknown RAMON St KUL P DEAN OF STUDENTS-FPA, NEUROPSYCHIATRIST-BC Active Last Documented On 2 12:01PM ; [facility] Plan of Treatment Pending Tests Order Diagnosis Results Due Ordering P rovider X-ray - OUTSIDE XRAYS SACROL ILLIAC JOINTS Low back pain, unspecified 10/21/23 RAMON CHAVARRIALP DEAN OF STUDENTS-FPA, NEUROPSYCHIATRIST-BC Last Documented On 4 8:49AM ; [facility] X-ray - OUTSIDE XRAYS HIP UNI 2 VIEWS LEFT Pain in left hip 10/21/[address] AYSHA DEAN OF STUDENTS-FPA, NEUROPSYCHIATRIST-BC Last Documented On 4 8:49AM ; [facility] Assessments Includes: Assessments from this encounter No Assessments Recorded Medical Equipment - Implanted Devices Includes: Current Devices No Medical Equipment Recorded Medications Includes: Medications discussed during this encounter and other current Medications Current Medications (continue as prescribed) traMADol HCl 50 MG Oral Tablet 10/21/2023 Provider: RAMON OLMSTEAD DEAN OF STUDENTS- FPA, NEUROPSYCHIATRIST-BC Diagnosis: Spinal stenosis, lumbar region without neurogenic sheryl One tablet daily as needed Last Documented On 4 9:05AM By RAMON MORALESNGOZI ; [facility] Atorvastatin Calcium 10 MG Oral Tablet 04/15/2023 Pr ovider: TRACIE WATSON MD Diagnosis: Last Documented On 3 3:06PM By RAMON MORALESNGOZI ; [facility] Estradiol 1 MG Oral Tablet 04/02/2022 Provider: Diagnosis: Last Documented On 2 9:37AM By RAMON MORALESNGOZI ; [facility] Lisinopril-hydroCHLOROthiazide 20-12.5 MG Oral Tablet 04/02/2022 Provider: Diagnosis: Last Documented On 2 9:37AM By RAMON MCLAUGHLIN ; [facility] Medications Administered Includes: Administered Medications from this encounter No Administered Medications Recorded Results Includes: Results discussed during this encounter No Results Recorded For Specified Dates History of Present Illness Includes: History of Present Illness from this encounter No History of Present Illness Recorded Social History Description Last Updated Tobacco non-user 04/02/2022 Last Documented On 4 3:32PM ; [facility] Alcohol 04/02/2022 Last Documented On 4 3:32PM ; [facility] Amount of alcohol per day: 1 genaro month? 04/02/2022 Last Documented On 4 3:32PM ; [facility] Difficulty walking 04/02/2022 Last Documented On 4 3:32PM ; [facility] Not using drugs 04/02/2022 Last Documented On 4 3:32PM ; [facility] Smoking Status Unknown Procedures and Surgical History Surgical History Last Updated No Pacemaker 04/02/2022 Last Documented On 4 3:32PM ; [facility] Medical History Includes: Medical History addressed during this encounter Description Last Updated Comprehensive metabolic pane l 10/03/2022 she emailed a picture of her lab result I could not print out. 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 04/02/2022 Last Documented On 4 3:32PM ; [facility] Has had no fall in the last 12 months. 1 06/02/2021 Last Documented On 4 3:32PM ; [facility] Family History Includes: Family History addressed during this encounter Description Last Updated Maternal history of family history of ki dney disease 04/02/2022 Last Documented On 4 3:32PM ; [facility] Review of Systems Includes: Review of Systems from this encounter No Review of Systems Recorded Mental Status Includes: Mental Status from this encounter No Mental Status Recorded Functional Status Includes: Functional Status from this encounter No Functional Status Recorded Physical Exam Includes: Physical Exam from this encounter No Physical Exam Recorded Allergies Includes: Active Allergies No Known Allergies Encounters Encounter Provider Location Date Check-In Time Check-Out Time Diagnosis POST PROCEDURE PHONE CALL RAMON OLMSTEAD DEAN OF STUDENTS-FPA, NEUROPSYCHIATRIST-BC 10/09/2023 3:31PM 11:59PM Insurance Includes: Active Insurance Policies Plan Name Member ID Group # Subscriber Relationship Effect ignacio Dates 1 - MEDICARE PART A CLAIMS/NGS [id number] FRANKLIN Saleh 2 - [employer] [id number] FRANKLIN Saleh Clinical Notes Includes: Clinical Notes from this encounter * Progress note Date Encounter Last Documented by 10/09/2023 POST PROCEDURE PHONE CALL Last d ocumented on 10/09/2023; 3:34 PM, Roseann York RN; [facility] Top of Document Post-Procedural Patient Screening Questionnaire Date of Procedure: 10/07/23 Procedure: bilateral L4-5 TFESI 1. How have you felt since your last procedure? Reports 75% overall relief Improved Same Worse 2. Pain level prior to procedure? 3-10 3. Pain level currently? 0 /10 4. 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
--- OUTSIDE RECORDS SUMMARY | 2024-05-27 05:44 | XMS_ITS | Continuity of Care Document ---
Author Name [facility] Organization [facility] Care Team Providers Care Digital Proofing And Platemaker Name Role Phone [facility] Unavailable Unavailable Problems Combined list of problems from [facility] and [facility] facilities. It does not include entries that were removed or entered in error. Problem Status Onset Date Problem Type Date of Resolution Comments Source Atrophic vaginitis Active Condition [facility] GERD - Gastro-Esophageal Reflux Disease ([facility] [id number]) Active Condition Jun 25, 2022 Entered By: CAMDEN MARINO Comment: egd 2020- gastritis [facility] H/O: surgery Active Condition Oct 27, 2019 Entered By: CAMDEN MARINO Comment: TAHBSO in the 902019 Entered By: CAMDEN MARINO Comment: normal colonoscopy October Entered By: CAMDEN MARINO Comment: bladder sling 2021 [facility] HTN - Hypertension ([facility] [id number]) Active Condition [facility] Hyperlipidemia ([facility] [id number]) Active Condition [facility] Low back pain Active Condition Jun Entered By: CAMDEN MARINO Comment: MRI L/spine 2022, LESI 05/2022 [facility] Menopausal and postmenopausal disorders Active Condition [facility] Diagnosis: ICD-10-CM I10 Essential (primary) hypertension Active Diagnosis [facility] Medications Combined list of outpatient medications from [facility] and [facility] facilities.Medications provided include 1) outpatient medications from the last 15 months, and 2) patient-reported medications. Medication Details Route Status Patient Instructions Prescription Expires Prescription Number Last Dispense Date Ordering Provider Order Date Order Qty Source ATORVASTATI N CA 20MG TAB TAKE ONE-HALF TABLET BY MOUTH EVERY EVENING ORAL ACTIVE Dio MARINO 2023 [facility] CALCIUM CITRATE 315MG/VITAM IN D 200UNT TAB TAKE ONE TABLET BY MOUTH EVERY MORNING ORAL ACTIVE MARINO,A RMIDA A 2019 [facility] ESTRADIOL 1MG TAB TAKE ONE TABLET BY MOUTH ONCE A DAY ORAL ACTIVE MARINO,A RMIDA A 2019 [facility] HYDROCHLORO THIAZIDE 12.5MG/DAVIS NOPRIL 20MG TAB TAKE ONE TABLET BY MOUTH EVERY MORNING ORAL ACTIVE MARINO,A RMIDA A 2019 [facility] Immunizations Combined list of available immunizations from the Department of Defense and Veterans Affairs facilities. Immunization Series Date Given Administered By Site Reaction Lot Number CVX Code Drug Child Watch Attendant Status Comments Source INFLUENZA, HIGH-DOSE, QUADRIVALENT 2022 NAYELI GREENE LEFT DELTO ID [id number] A 197 complet ed [facility] INFLUENZA, UNSPECIFIED FORMULATION 2021 88 complet ed [facility] ZOSTER RECOMBINANT 2 2020 187 complet ed [facility] ZOSTER RECOMBINANT 2 2019 187 complet ed [facility] INFLUENZA, INJECTABLE, QUADRIVALENT, PRESERVATIVE FREE 8 2018 150 complet ed [facility] INFLUENZA, UNSPECIFIED FORMULATION 2018 88 complet ed per [facility] PNEUMOCOCCAL POLYSACCHARID E PPV23 2 2018 33 complet ed [facility] PNEUMOCOCCAL POLYSACCHARID E PPV23 2018 33 complet ed [facility] INFLUENZA, INJECTABLE, QUADRIVALENT, PRESERVATIVE FREE 7 2017 150 complet ed [facility] INFLUENZA, INJECTABLE, QUADRIVALENT 6 2016 158 complet ed [facility] INFLUENZA, INJECTABLE, QUADRIVALENT 5 2015 158 complet ed [facility] TDAP 1 2015 115 complet ed [facility] PNEUMOCOCCAL CONJUGATE PCV 13 1 2014 133 complet ed [facility] INFLUENZA, SEASONAL, INJECTABLE 4 2014 141 complet ed [facility] INFLUENZA, INJECTABLE, QUADRIVALENT 3 2013 158 complet ed [facility] INFLUENZA, SEASONAL, INJECTABLE 2 2012 141 complet ed [facility] INFLUENZA, SEASONAL, INJECTABLE 1 2011 141 complet ed [facility] Results Combined list of recent chemistry, hematology and other laboratory results from Department of Defense and Veterans Affairs, ranging from 15 months to all on record, depending upon the facility. Order Name Results Value Reference Range Date Interpretation Specimen Comments Source CBC LEUKOCYTES [#/VOLUME] IN BLOOD BY AUTOMATED COUNT 7.1 10*3/u L 3.6 - 11.2 08/27 Specimen Type: BLOOD No comment entered. Ordering Provider: NICOLE MARINO Report Released Date/Time: Aug 28, 2023 08:34 AM Reporting Lab: [facility] [address] [place] [address] Performing Lab: [address] CBC ERYTHROCYTES [#/VOLUME] IN BLOOD BY AUTOMATED COUNT 4.70 10*6/u L 3.60 - 5.00 08/27 Specimen Type: BLOOD No comment entered. Ordering Provider: NICOLE MARINO Report Released Date/Time: Aug 28, 2023 08:34 AM Reporting Lab: [facility] [address] [place] [phone] Performing Lab: [address] CBC HEMOGLOBIN [MASS/VOLUME ] IN BLOOD 14.5 g/dL 11.0 - 14.9 08/27 Specimen Type: BLOOD No comment entered. Ordering Provider: NICOLE MARINO Report Released Date/Time: Aug 28, 2023 08:34 AM Reporting Lab: [facility] [address] [facility] [address] Performing Lab: [address] [address] [facility] CBC HEMATOCRIT [VOLUME FRACTION] OF BLOOD 45.0 32.6 - 43.4 08/27 H Specimen Type: BLOOD No comment entered. Ordering Provider: NICOLE MARINO Report Released Date/Time: Aug 28, 2023 08:34 AM Reporting Lab: [facility] [address] [place] [phone] Performing Lab: [address] [address] [facility] CBC MCV [ENTITIC VOLUME] BY AUTOMATED COUNT 95.7 fL 80.0 - 100.0 08/27 Specimen Type: BLOOD No comment entered. Ordering Provider: NICOLE MARINO Report Released Date/Time: Aug 28, 2023 08:34 AM Reporting Lab: [facility] [address] [place] [phone] Performing Lab: [address] [address] [facility] CBC MCH [ENTITIC MASS] BY AUTOMATED COUNT 30.9 pg 27.0 - 34.0 08/27 Specimen Type: BLOOD No comment entered. Ordering Provider: NICOLE MARINO Report Released Date/Time: Aug 28, 2023 08:34 AM Reporting Lab: [facility] [address] [place] [address] Performing Lab: [address] [address] [facility] CBC MCHC [MASS/VOLUME ] BY AUTOMATED COUNT 32.2 g/dL 33.0 - 36.0 08/27 L Specimen Type: BLOOD No comment entered. Ordering Provider: NICOLE MARINO Report Released Date/Time: Aug 28, 2023 08:34 AM Reporting Lab: [facility] [address] [facility] [address] Performing Lab: [facility] [address] [place] [phone] [facility] CBC PLATELETS [#/VOLUME] IN BLOOD BY AUTOMATED COUNT 321 10*3/u L 150 - 400 08/27 Specimen Type: BLOOD No comment entered. Ordering Provider: NICOLE MARINO Report Released Date/Time: Aug 28, 2023 08:34 AM Reporting Lab: [facility] [address] [place] [phone] Performing Lab: [address] [phone] [facility] CBC PLATELET MEAN VOLUME [ENTITIC VOLUME] IN BLOOD BY AUTOMATED COUNT 9.6 fL 7.5 - 11.2 08/27 Specimen Type: BLOOD No comment entered. Ordering Provider: NICOLE MARINO Report Released Date/Time: Aug 28, 2023 08:34 AM Reporting Lab: [facility] [address] [place] [address] Performing Lab: [address] [address] [facility] CBC ERYTHROCYTE DISTRIBUTION WIDTH [RATIO] BY AUTOMATED COUNT 12.8 11.8 - 15.1 08/27 Specimen Type: BLOOD No comment entered. Ordering Provider: NICOLE MARINO Report Released Date/Time: Aug 28, 2023 08:34 AM Reporting Lab: [facility] [address] [place] [phone] Performing Lab: [facility] [address] [place] [phone] [facility] CBC LYMPHOCYTES/ 100 LEUKOCYTES IN BLOOD BY AUTOMATED COUNT 22 08/27 Specimen Type: BLOOD No comment entered. Ordering Provider: NICOLE MARINO Report Released Date/Time: Aug 28, 2023 08:34 AM Reporting Lab: [facility] [address] [place] [phone] Performing Lab: [facility] [address] [facility] [address] [facility] CBC MONOCYTES/10 0 LEUKOCYTES IN BLOOD BY AUTOMATED COUNT 10 08/27 Specimen Type: BLOOD No comment entered. Ordering Provider: NICOLE MARINO Report Released Date/Time: Aug 28, 2023 08:34 AM Reporting Lab: [facility] [address] [facility] [address] Performing Lab: [facility] [address] [facility] [address] [facility] CBC NEUTROPHILS/ 100 LEUKOCYTES IN BLOOD BY AUTOMATED COUNT 65 08/27 Specimen Type: BLOOD No comment entered. Ordering Provider: NICOLE MARINO Report Released Date/Time: Aug 28, 2023 08:34 AM Reporting Lab: [facility] [address] [place] [phone] Performing Lab: [facility] [address] [facility] [address] [facility] CBC EOSINOPHILS/ 100 LEUKOCYTES IN BLOOD BY AUTOMATED COUNT 2 08/27 Specimen Type: BLOOD No comment entered. Ordering Provider: NICOLE MARINO Report Released Date/Time: Aug 28, 2023 08:34 AM Reporting Lab: [facility] [address] [facility] [phone] Performing Lab: [facility] [address] [facility] [address] [facility] CBC BASOPHILS/10 0 LEUKOCYTES IN BLOOD BY AUTOMATED COUNT 1 08/27 Specimen Type: BLOOD No comment entered. Ordering Provider: NICOLE MARINO Report Released Date/Time: Aug 28, 2023 08:34 AM Reporting Lab: [facility] [address] [facility] [address] Performing Lab: [facility] [address] [facility] [address] [facility] CBC LYMPHOCYTES [#/VOLUME] IN BLOOD BY AUTOMATED COUNT 1.53 10*3/u L 0.77 - 4.50 08/27 Specimen Type: BLOOD No comment entered. Ordering Provider: NICOLE MARINO Report Released Date/Time: Aug 28, 2023 08:34 AM Reporting Lab: [facility] [address] [place] [phone] Performing Lab: [address] [phone] [place] [address] CBC MONOCYTES [#/VOLUME] IN BLOOD BY AUTOMATED COUNT 0.70 10*3/u L 0.19 - 0.80 08/27 Specimen Type: BLOOD No comment entered. Ordering Provider: NICOLE MARINO Report Released Date/Time: Aug 28, 2023 08:34 AM Reporting Lab: [address] [address] Performing Lab: [address] [phone] [place] [address] CBC NEUTROPHILS [#/VOLUME] IN BLOOD BY AUTOMATED COUNT 4.61 10*3/u L 2.10 - 8.00 08/27 Specimen Type: BLOOD No comment entered. Ordering Provider: NICOLE MARINO Report Released Date/Time: Aug 28, 2023 08:34 AM Reporting Lab: [address] [address] Performing Lab: [address] [address] [facility] CBC EOSINOPHILS [#/VOLUME] IN BLOOD BY AUTOMATED COUNT 0.13 10*3/u L 0.00 - 0.60 08/27 Specimen Type: BLOOD No comment entered. Ordering Provider: NICOLE MARINO Report Released Date/Time: Aug 28, 2023 08:34 AM Reporting Lab: [address] [address] Performing Lab: [address] [phone] [place] [address] CBC BASOPHILS [#/VOLUME] IN BLOOD BY AUTOMATED COUNT 0.06 10*3/u L 0.00 - 0.20 08/27 Specimen Type: BLOOD No comment entered. Ordering Provider: NICOLE MARINO Report Released Date/Time: Aug 28, 2023 08:34 AM Reporting Lab: [facility] [address] [place] [phone] Performing Lab: [facility] [address] [place] [phone] [place] [address] COMPREHENSI VE METABOLIC PANEL CREATININE [MASS/VOLUME ] IN SERUM OR PLASMA 0.82 mg/dL 0.6 - 1.1 08/27 Specimen Type: PLASMA Comment: No hemolysis noted. Ordering Provider: NICOLE MARINO Report Released Date/Time: Aug 28, 2023 08:34 AM Reporting Lab: [facility] [address] [place] [phone] Performing Lab: [facility] [address] [place] [phone] [place] [address] COMPREHENSI VE METABOLIC PANEL UREA NITROGEN [MASS/VOLUME ] IN SERUM OR PLASMA 19.1 mg/dL 9.0 - 25.0 08/27 Specimen Type: PLASMA Comment: No hemolysis noted. Ordering Provider: NICOLE MARINO Report Released Date/Time: Aug 28, 2023 08:34 AM Reporting Lab: [facility] [address] [place] [phone] Performing Lab: [facility] [address] [place] [phone] [facility] COMPREHENSI VE METABOLIC PANEL GLUCOSE [MASS/VOLUME ] IN SERUM OR PLASMA 87 mg/dL 72 - 99 08/27 Specimen Type: PLASMA Comment: No hemolysis noted. Ordering Provider: NICOLE MARINO Report Released Date/Time: Aug 28, 2023 08:34 AM Reporting Lab: [facility] [address] [facility] [address] Performing Lab: [facility] [address] [facility] [address] [facility] COMPREHENSI VE METABOLIC PANEL SODIUM [MOLES/VOLUM E] IN SERUM OR PLASMA 141 meq/L 136 - 145 08/27 Specimen Type: PLASMA Comment: No hemolysis noted. Ordering Provider: NICOLE MARINO Report Released Date/Time: Aug 28, 2023 08:34 AM Reporting Lab: [facility] [address] [facility] [address] Performing Lab: [facility] [address] [facility] [address] [facility] COMPREHENSI VE METABOLIC PANEL POTASSIUM [MOLES/VOLUM E] IN SERUM OR PLASMA 3.9 meq/L 3.5 - 5 08/27 Specimen Type: PLASMA Comment: No hemolysis noted. Ordering Provider: NICOLE MARINO Report Released Date/Time: Aug 28, 2023 08:34 AM Reporting Lab: [facility] [address] [facility] [address] Performing Lab: [facility] [address] [facility] [address] [facility] COMPREHENSI VE METABOLIC PANEL CHLORIDE [MOLES/VOLUM E] IN SERUM OR PLASMA 107 meq/L 98 - 107 08/27 Specimen Type: PLASMA Comment: No hemolysis noted. Ordering Provider: NICOLE MARINO Report Released Date/Time: Aug 28, 2023 08:34 AM Reporting Lab: [facility] [address] [facility] [address] Performing Lab: [facility] [address] [facility] [address] [facility] COMPREHENSI VE METABOLIC PANEL CARBON DIOXIDE, TOTAL [MOLES/VOLUM E] IN SERUM OR PLASMA 24 meq/L 22 - 31 08/27 Specimen Type: PLASMA Comment: No hemolysis noted. Ordering Provider: NICOLE MARINO Report Released Date/Time: Aug 28, 2023 08:34 AM Reporting Lab: [facility] [address] [facility] [address] Performing Lab: [facility] [address] [facility] [address] [facility] COMPREHENSI VE METABOLIC PANEL CALCIUM [MASS/VOLUME ] IN SERUM OR PLASMA 10.1 mg/dL 8.4 - 10.4 08/27 Specimen Type: PLASMA Comment: No hemolysis noted. Ordering Provider: NICOLE MARINO Report Released Date/Time: Aug 28, 2023 08:34 AM Reporting Lab: [facility] [address] [facility] [address] Performing Lab: [facility] [address] [place] [phone] [place] [address] COMPREHENSI VE METABOLIC PANEL PROTEIN [MASS/VOLUME ] IN SERUM OR PLASMA 7.2 g/dL 6 - 8.6 08/27 Specimen Type: PLASMA Comment: No hemolysis noted. Ordering Provider: NICOLE MARINO Report Released Date/Time: Aug 28, 2023 08:34 AM Reporting Lab: [facility] [address] [facility] [address] Performing Lab: [facility] [address] [facility] [address] [facility] COMPREHENSI VE METABOLIC PANEL ALBUMIN [MASS/VOLUME ] IN SERUM OR PLASMA 4.4 g/dL 3.4 - 5 08/27 Specimen Type: PLASMA Comment: No hemolysis noted. Ordering Provider: NICOLE MARINO Report Released Date/Time: Aug 28, 2023 08:34 AM Reporting Lab: [facility] [address] [facility] [address] Performing Lab: [facility] [address] [place] [phone] [facility] COMPREHENSI VE METABOLIC PANEL BILIRUBIN.TO ADRIENNE [MASS/VOLUME ] IN SERUM OR PLASMA 0.4 mg/dL 0.2 - 1.2 08/27 Specimen Type: PLASMA Comment: No hemolysis noted. Ordering Provider: NICOLE MARINO Report Released Date/Time: Aug 28, 2023 08:34 AM Reporting Lab: [facility] [address] [facility] [address] Performing Lab: [facility] [address] [facility] [address] [facility] COMPREHENSI VE METABOLIC PANEL ALKALINE PHOSPHATASE [ENZYMATIC ACTIVITY/VOL UME] IN SERUM OR PLASMA 61 U/L 40 - 150 08/27 Specimen Type: PLASMA Comment: No hemolysis noted. Ordering Provider: NICOLE MARINO Report Released Date/Time: Aug 28, 2023 08:34 AM Reporting Lab: [facility] [address] [facility] [address] Performing Lab: [facility] [address] [place] [phone] [place] [address] COMPREHENSI VE METABOLIC PANEL ASPARTATE AMINOTRANSFE RASE [ENZYMATIC ACTIVITY/VOL UME] IN SERUM OR PLASMA 35 U/L 5 - 34 08/27 H Specimen Type: PLASMA Comment: No hemolysis noted. Ordering Provider: NICOLE MARINO Report Released Date/Time: Aug 28, 2023 08:34 AM Reporting Lab: [facility] [address] [facility] [address] Performing Lab: [facility] [address] [place] [phone] [facility] COMPREHENSI VE METABOLIC PANEL ALANINE AMINOTRANSFE RASE [ENZYMATIC ACTIVITY/VOL UME] IN SERUM OR PLASMA 35 U/L 8 - 40 08/27 Specimen Type: PLASMA Comment: No hemolysis noted. Ordering Provider: NICOLE MARINO Report Released Date/Time: Aug 28, 2023 08:34 AM Reporting Lab: [facility] [address] [facility] [address] Performing Lab: [facility] [address] [place] [phone] [facility] COMPREHENSI VE METABOLIC PANEL GLOMERULAR FILTRATION RATE/1.73 SQ M.PREDICTED [VOLUME RATE/AREA] IN SERUM, PLASMA OR BLOOD BY CREATININE-B ASED FORMULA (CKD-EPI 2020) 75.5 60 08/27 Specimen Type: PLASMA Comment: No hemolysis noted. Ordering Provider: NICOLE MARINO Report Released Date/Time: Aug 28, 2023 08:34 AM Reporting Lab: [address] [address] Performing Lab: [address] [address] [facility] HGA1C HEMOGLOBIN A1C/HEMOGLOB IN.TOTAL IN BLOOD 5.4 4.0 - 6.0 08/27 Specimen Type: BLOOD No comment entered. Ordering Provider: NICOLE MARINO Report Released Date/Time: Aug 28, 2023 08:34 AM Reporting Lab: [address] [address] Performing Lab: [address] [address] [facility] LIPID PANEL (STL) CHOLESTEROL [MASS/VOLUME ] IN SERUM OR PLASMA 211 mg/dL 0 - 200 08/27 H Specimen Type: PLASMA Comment: No hemolysis noted. Ordering Provider: NICOLE MARINO Report Released Date/Time: Aug 28, 2023 08:34 AM Reporting Lab: [address] [phone] Performing Lab: [facility] [address] [facility] [address] [facility] LIPID PANEL (STL) TRIGLYCERIDE [MASS/VOLUME ] IN SERUM OR PLASMA 222 mg/dL 0 - 150 08/27 H Specimen Type: PLASMA Comment: No hemolysis noted. Ordering Provider: NICOLE MARINO Report Released Date/Time: Aug 28, 2023 08:34 AM Reporting Lab: [address] [address] Performing Lab: [facility] [address] [place] [phone] [facility] LIPID PANEL (STL) CHOLESTEROL IN LDL [MASS/VOLUME ] IN SERUM OR PLASMA BY CALCULATION 96 mg/dL 08/27 Specimen Type: PLASMA Comment: No hemolysis noted. Ordering Provider: NICOLE MARINO Report Released Date/Time: Aug 28, 2023 08:34 AM Reporting Lab: [facility] [address] [place] [address] Performing Lab: [facility] [address] [place], [place] [phone] [place] [address] LIPID PANEL (STL) CHOLESTEROL IN HDL [MASS/VOLUME ] IN SERUM OR PLASMA 71 mg/dL 40 08/27 Specimen Type: PLASMA Comment: No hemolysis noted. Ordering Provider: NICOLE MARINO Report Released Date/Time: Aug 28, 2023 08:34 AM Reporting Lab: [facility] [address] [place] [address] Performing Lab: [facility] [address] [place] [phone] [place] [address] TSH W/ REFLEX FT4 (STL) THYROTROPIN [UNITS/VOLUM E] IN SERUM OR PLASMA 3.156 u[IU]/ mL 0.47 - 5 08/27 Specimen Type: PLASMA No comment entered. Ordering Provider: NICOLE MARINO Report Released Date/Time: Aug 28, 2023 08:34 AM Reporting Lab: [facility] [address] [place] [phone] Performing Lab: [facility] [address] [place] [phone] VITAMIN D, 25-HYDROXY 25-HYDROXYVI TAMIN D3 [MASS/VOLUME ] IN SERUM OR PLASMA 34.0 ng/mL 30 - 96 08/27 Specimen Type: SERUM No comment entered. Ordering Provider: NICOLE MARINO Report Released Date/Time: Aug 28, 2023 08:34 AM Reporting Lab: [facility] [address] [place], [place] [phone] Performing Lab: [facility] [address] [facility] [address] [facility] Vital Signs Combined list of inpatient and outpatient Vital Signs from Department of [facility] and [facility], ranging from 12 months to all on record, depending upon the facility. Vital Sign Value Date Comments Source SYSTOLIC BLOOD PRESSURE 156 08/28/2023 14:37:56 [facility] DIASTOLIC BLOOD PRESSURE 84 08/28/2023 14:37:56 [facility] PULSE OXIMETRY 98 08/28/2023 14:37:56 [facility] WEIGHT 127 08/28/2023 14:37:56 [facility] BMI 25kg/m2 08/28/2023 14:37:56 [facility] PAIN 1 08/28/2023 14:37:56 [facility] HEIGHT 60 08/28/2023 14:37:56 [facility] TEMPERATURE 97.8 08/28/2023 14:37:56 [facility] PULSE 66 08/28/2023 14:37:56 [facility] RESPIRATION 16 08/28/2023 14:37:56 [facility] Encounters Combined list of: 1) Encounters from [facility] facilities going back up to thelast 18 months. 2) Encounters from the Department of [facility] facilities going back up to 280 months. Location Location Details Encounter Type Encounter Number Reason For Visit Attending Provider ADM Date DC Date Status Disposition Source [facility] OFFICE O/P EST MOD 30-39 MIN [id number] Diagnos is: ICD-10- CM I10 Essenti al (primar y) hyperte nsion<b r/> MARINO,AR MIDA A 02/20 [facility] Outpatient Encounter [id number] MARINO,AR MIDA A 08/27 [facility] OFFICE O/P EST MOD 30 MIN [id number] Diagnos is: ICD-10- CM I10 Essenti al (primar y) hyperte nsion<b r/> MARINO,AR MIDA A 08/27 [facility] Outpatient Encounter [id number] 09/07 [facility] Social History Combined list of available smoking, tobacco, and other social history from Department of Defense and Veterans Affairs facilities. Social History Type Response Date Comment Sourc e Tobacco smoking status NHIS [place]-TOBACCO NEVER USED 08/28/2023 [facility] History of tobacco use [place]-TOBACCO NEVER USED 06/25/2022 [facility] History of tobacco use [facility]-TO[facility]CO NEVER USED 10/19/2019 [facility] Plan of Care List of future care activities from [facility]. Additional future care activities may be listed in the Assessment and Plan section. Date/Time Care Activity Care Activity Detail Facili ty 05/31/2024 AMBULATORY - MEDICINE AMBULATORY - MEDICI NE [facility]
--- OUTSIDE RECORDS SUMMARY | 2024-05-27 05:44 | XMS_ITS | Clinical Summary ---
Author Organization [facility] Address [address] [place] [address] Phone Care Team Providers Care Retail Associate Manager Bilingual Name Role Phone TRACIE WATSON MD Primary Care Provider [phone] Reason for Visit and Chief Complaint The Chief Complaint is: 1 month follow up Problems Includes: Problems addressed during this encounter and other active Problems All Visits Onset Date Resolved Date Provider Condition S tatus Hyperlipidemia Unknown RAMON St KUL P CLINICAL PHARMACY TECHNICIAN-FPA, OUTPATIENT PSYCHIATRIST-BC Active Last Documented On 2 12:00PM ; [facility] Essential Hypertension Unknown RAMON G KUL P CLINICAL PHARMACY TECHNICIAN-FPA, OUTPATIENT PSYCHIATRIST-BC Active Last Documented On 2 12:01PM ; [facility] Plan of Treatment Patient was seen [...] notes, laboratory data, patient self-report questionnaires, and [place] prescription monitoring database entries. Significant social barriers exist to compliance resulting in limited prognosis. - Last Documented On 05/14/2023 10:24AM ; [facility] Pending Tests Order Diagnosis Results Due Ordering P rovider X-ray - OUTSIDE XRAYS SACROL ILLIAC JOINTS Low back pain, unspecified 10/21/23 RAMON CHAVARRIALP CLINICAL PHARMACY TECHNICIAN-FPA, OUTPATIENT PSYCHIATRIST-BC Last Documented On 4 8:49AM ; [facility] X-ray - OUTSIDE XRAYS HIP UNI 2 VIEWS LEFT Pain in left hip 10/21/[address] AYSHA SCHULTZ-YODIT, OUTPATIENT PSYCHIATRIST-BC Last Documented On 4 8:49AM ; [facility] Education and Decision Aids were provided during visit for: Pill Count: twelve Tramadol Last Documented On 4 9:15AM ; [facility] Assessments Includes: Assessments from this encounter Findings - [M51.36 - Other intervertebral disc degeneration, lumbar region] Lumbar disc degeneration - Last Documented On 05/14/2023 10:24AM ; [facility] - [M47.896 - Other spondylosis, lumbar region] Lumbar spondylosis - Last Documented On 05/14/2023 10:24AM ; [facility] - [M54.50 - Low back pain, unspecified] Low back pain - Last Documented On 05/14/2023 10:24AM ; [facility] - [M54.51 - Vertebrogenic low back pain] Vertebrogenic low back pain - Last Documented On 05/14/2023 10:24AM ; [facility] - [M41.9 - Scoliosis, unspecified] Dextroscoliosis - Last Documented On 05/14/2023 10:24AM ; [facility] - [M48.061 - Spinal stenosis, lumbar region without neurogenic claudication] Lumbar stenosis - Last Documented On 05/14/2023 10:24AM ; [facility] - [G89.4 - Chronic pain syndrome] Chronic pain syndrome - Last Documented On 05/14/2023 10:24AM ; [facility] Instructions Includes: Instructions from this encounter Education and Decision Aids were provided during visit for: Pill Count: twelve Tramadol Last Documented On 4 9:15AM ; [facility] Medical Equipment - Implanted Devices Includes: Current Devices No Medical Equipment Recorded Medications Includes: Medications discussed during this encounter and other current Medications Discontinued / Stopped on this date RAMON Alma Rosa CARMEN SALAS-NGOZI on 04/23/2023 predniSONE 10 MG Oral Tablet Provider: CARMEN JONES-BC Diagnosis: Dorsalgia, unspe cified Last Documented On 4 9:09AM By Tg STYLES ; [facility] Ibuprofen 600 MG Oral Tablet Provider: LISSETTE JONES Diagnosis: Low back pain, u nspecified Last Documented On 4 9:23AM By RAMON MCLAUGHLIN ; [facility] Omeprazole 20 MG Oral Tablet Delayed Release Disintegr ating Provider: Diagnosis: Last Documented On 4 9:09AM By Tg STYLES ; [facility] Current Medications (continue as prescribed) traMADol HCl 50 MG Oral Tablet 10/21/2023 Provider: LISSETTE JONES Diagnosis: Spinal stenosis, lumbar region without neurogenic sheryl One tablet daily as needed Last Documented On 4 9:05AM By RAMON MCLAUGHLIN ; [facility] Atorvastatin Calcium 10 MG Oral Tablet 04/15/2023 Pr ovider: TRACIE WATSON MD Diagnosis: Last Documented On 3 3:06PM By RAMON MCLAUGHLIN ; [facility] Estradiol 1 MG Oral Tablet 04/02/2022 Provider: Diagnosis: Last Documented On 2 9:37AM By RAMON MCLAUGHLIN ; [facility] Lisinopril-hydroCHLOROthiazide 20-12.5 MG Oral Tablet 04/02/2022 Provider: Diagnosis: Last Documented On 2 9:37AM By RAMON MCLAUGHLIN ; [facility] Medications Administered Includes: Administered Medications from this encounter No Administered Medications Recorded Vital Signs Includes: Vital Signs from this encounter Vital Name 05/14/2023 09:13A Blood Pressure Sitting L 120/76 BP Cuff Size Regular Pulse Rate-Sitting (bpm) 92 Height (in) 60 Weight (lb) 133 Body Mass Index 26 Body Surface Area 1.6 Pain Level 1 Oxygen Saturation (%) 99 Last Documented: On 05/14/2023 9:13AM ; [facility] Results Includes: Results discussed during this encounter [...] 1 PRN - Last dose of medication? First part of May - Pain comes/goes - Pain in AM [...] Last drug screen appropriate 07/10/2022 Discussion: FU chronic low back pain. Patient states [...] today. She was instructed to have a clark driver bring her in and drive her home from the procedure. She is instructed on use of antibacterial soap on the night before morning-after. She was instructed to be NPO from midnight the morning the procedure. Preoperative at labs ordered. She like to get this done in [place]. Recommend she get these done as soon [...] and one month later to assess response. [place] prescription monitoring database was reviewed and found [...] Tobacco non-user 04/02/2022 Last Documented On 4 9:02AM ; [facility] Alcohol 04/02/2022 Last Documented On 4 9:02AM ; [facility] Amount of alcohol per day: 1 genaro month? 04/02/2022 Last Documented On 4 9:02AM ; [facility] Difficulty walking 04/02/2022 Last Documented On 4 9:02AM ; [facility] Not using drugs 04/02/2022 Last Documented On 4 9:02AM ; [facility] Smoking Status Unknown Procedures and Surgical History Includes: Procedures from this encounter Procedures Code Diagnosis Performing Provider Service L ocation Service Date use of tobacco assessment performed 1000F Last Documented On 4 9:02AM ; [facility] review of medications documented 1160F Last Documented On 4 9:02AM ; [facility] screening for adult depression: impressi on and score 0 Last Documented On 4 9:09AM ; [facility] Reviewed & agreed to staff entries. Last Documented On 4 9:02AM ; [facility] Clinical summary provided to patient Last Documented On 4 9:02AM ; [facility] SOAPP-R: total score 6 Last Documented On 4 9:02AM ; [facility] Surgical History Last Updated No Pacemaker 04/02/2022 Last Documented On 4 9:02AM ; [facility] Medical History Includes: Medical History addressed during this encounter Description Last Updated Comprehensive metabolic pane l 10/03/2022 she emailed a picture of her lab result I could not print out. Pertinent below: ~BUN 26 ~Creatinine 0.84 ~eGFR >60 ~TSH normal ~CBC unremarkable 10/17/2022 Last Documented On 4 9:02AM ; [facility] home day care provider 04/02/2022 Last Documented On 4 9:02AM ; [facility] Currently wearing eyeglasses 04/02/2022 Last Documented On 4 9:02AM ; [facility] No Pain Pump 04/02/2022 Last Documented On 4 9:02AM ; [facility] No Spinal cord stimulator 04/02/2022 Last Documented On 4 9:02AM ; [facility] Physical therapy 04/02/2022 Last Documented On 4 9:02AM ; [facility] Please list all surgeries: 08/23/21bladde r sling surgery 04/02/2022 Last Documented On 4 9:02AM ; [facility] Denies a fear of falling. 04/02/2022 Last Documented On 4 9:02AM ; [facility] Has had no fall in the last 12 months. 1 06/02/2021 Last Documented On 4 9:02AM ; [facility] Family History Includes: Family History addressed during this encounter Description Last Updated Maternal history of family history of ki dney disease 04/02/2022 Last Documented On 4 9:02AM ; [facility] Review of Systems Includes: Review of Systems [...] Location Date Check-In Time Check-Out Time Diagnosis PAIN MANAGEMENT FOLLOW UP LISSETTE MARCELINO [facility] 024 8:59AM 9:39AM Lumbar Spondylosis,Spinal Stenosis Lumbar,Chronic Pain Syndrome,Intervert ebral Disc Degeneration - Lumbar,Dorsopathy Low Back Pain,Dorsopathy Low Back Pain Vertebrogenic,Scol iosis Dextroscoliosis Insurance Includes: Active Insurance Policies Plan Name Member ID Group # Subscriber Relationship Effect ignacio Dates 1 - MEDICARE PART A CLAIMS/NGS [id number] FRANKLIN Saleh 2 - [employer] [id number] FRANKLIN Saleh Clinical Notes Includes: Clinical Notes from this encounter * Progress note Date Encounter Last Documented by 05/14/2023 PAIN MANAGEMENT FOLLOW UP Last d ocumented on 05/14/2023; 10:24 AM, LISSETTE MARCELINO; [facility] Active Problems & Conditions - Essential Hypertension - Hyperlipidemia Chief Complaint The Chief Complaint is: 1 month follow up. History of Present Illness PHQ-9 [...] 1 PRN - Last dose of medication? First part of May - Pain comes/goes - Pain in AM [...] Last drug screen appropriate 07/10/2022 Discussion: FU chronic low back pain. Patient states [...] today. She was instructed to have a clark driver bring her in and drive her home from the procedure. She is instructed on use of antibacterial soap on the night before morning-after. She was instructed to be NPO from midnight the morning the procedure. Preoperative at labs ordered. She like to get this done in [place]. Recommend she get these done as soon [...] and one month later to assess response. [place] prescription monitoring database was reviewed and found [...] days, 0 refills Past Medical/Surgical History Reported: home day care provider, Physical therapy, and Please list all surgeries: [...] than noted. Physical Findings - Vitals taken 05/14/2023 09:13 am BP-Sitting L 120/76 mmHg BP Cuff Size Regular Pulse Rate-Sitting 92 bpm Height 60 in Weight 133 lbs Body Mass Index 26 kg/m2 Body Surface Area 1.6 m2 Pain Level 1 Pain Level Note Lumbar Oxygen Saturation 99 % Psychiatric: Psychiatric: Value PHQ9 score: 2 [...] Affect normal. No pain behaviors. Skin: Normal. [place], warm, dry. Tests Educational Testing: Questionnaires PHQ-9: [...] provided to patient. Counseling/Education - Pill Count: twelve Tramadol Discussed Continue home stretches and strengthening [...] notes, laboratory data, patient self-report questionnaires, and [place] prescription monitoring database entries. Significant social barriers exist to compliance resulting in limited prognosis. Practice Management Use of tobacco assessment performed Review of medications documented; Screening for adult depression: impression and score 0; [67602] Established outpatient, medically appropriate H&P, moderate level decision making, 30-39 minutes. A total of 22 minutes were spent on this patient's care [...] but may be subject to typographical or criminal profiler errors. Verify all diagnoses, medications, dosages, and patient instructions with patient and/or the originator of this document. Care Team - TRACIE WATSON MD - Primary Care Health Reminders - Assess Blood Pressure satisfied 05/14/2023. - Assess BMI satisfied 05/14/2023. - Assess Need for CT Lung Screen satisfied 05/14/2023. - Assess Tobacco Use satisfied 05/14/2023. - Depression Screening satisfied 05/14/2023.
--- OUTSIDE RECORDS SUMMARY | 2024-05-27 05:44 | XMS_ITS | Clinical Summary ---
Author Organization [facility] Address [address] [place] [address] Phone Care Team Providers Care Patternmaker Plaster [employer] Pl[employer] Name Role Phone SHIRLEY CAGE TRACIE Primary Care Provider [phone] Reason for Visit and Chief Complaint The Chief Complaint is: 2 month follow up after Th Problems Includes: Problems addressed during this encounter and other active Problems All Visits Onset Date Resolved Date Provider Condition S tatus Hyperlipidemia Unknown RAMON G KUL P INSTANT PRINT OPERATOR-FPA, METAL BONDING ASSEMBLER-BC Active Last Documented On 2 12:00PM ; [facility] Essential Hypertension Unknown RAMON G KUL P INSTANT PRINT OPERATOR-FPA, METAL BONDING ASSEMBLER-BC Active Last Documented On 2 12:01PM ; [facility] Plan of Treatment Patient was seen today [...] in limited prognosis. - Last Documented On 09/09/2023 1:51PM ; [facility] Pending Tests Order Diagnosis Results Due Ordering P rovider X-ray - OUTSIDE XRAYS SACROL ILLIAC JOINTS Low back pain, unspecified 10/21/23 RAMON CHAVARRIALP INSTANT PRINT OPERATOR-FPA, METAL BONDING ASSEMBLER-BC Last Documented On 4 8:49AM ; [facility] X-ray - OUTSIDE XRAYS HIP UNI 2 VIEWS LEFT Pain in left hip 10/21/23 LISSETTE MARCELINO Last Documented On 4 8:49AM ; [facility] Education and Decision Aids were provided during visit for: Pill Count: two Tramadol Last Documented On 4 1:21PM ; [facility] Assessments Includes: Assessments from this encounter Findings - [M51.36 - Other intervertebral disc degeneration, lumbar region] Lumbar disc degeneration - Last Documented On 09/09/2023 1:51PM ; [facility] - [M47.896 - Other spondylosis, lumbar region] Lumbar spondylosis - Last Documented On 09/09/2023 1:51PM ; [facility] - [M54.50 - Low back pain, unspecified] Low back pain - Last Documented On 09/09/2023 1:51PM ; [facility] - [M54.51 - Vertebrogenic low back pain] Vertebrogenic low back pain - Last Documented On 09/09/2023 1:51PM ; [facility] - [M41.9 - Scoliosis, unspecified] Dextroscoliosis - Last Documented On 09/09/2023 1:51PM ; [facility] - [M48.061 - Spinal stenosis, lumbar region without neurogenic claudication] Lumbar stenosis - Last Documented On 09/09/2023 1:51PM ; [facility] - [G89.4 - Chronic pain syndrome] Chronic pain syndrome - Last Documented On 09/09/2023 1:51PM ; [facility] Instructions Includes: Instructions from this encounter Education and Decision Aids were provided during visit for: Pill Count: two Tramadol Last Documented On 4 1:21PM ; [facility] Medical Equipment - Implanted Devices Includes: Current Devices No Medical Equipment Recorded Medications Includes: Medications discussed during this encounter and other current Medications Discontinued / Stopped on this date on 05/14/2023 traMADol HCl 50 MG Oral Tablet Provider: Diagnosis: Last Documented On 1:51PM By RAMON MCLAUGHLIN ; [facility] New / Renewed during this visit LISSETTE MARCELINO on 09/09/2023 traMADol HCl 50 MG Oral Tablet Provider: ANALILIA JONESP-BC 30 day supply: 30 tablet, 0 refills Diagnosis: Spinal stenosis, lumbar region without neurogenic sheryl One tablet daily as needed Pharmacy: [address], [address] - Last Documented On 4 8:53AM By RAMON MCLAUGHLIN ; [facility] Current Medications (continue as prescribed) traMADol HCl 50 MG Oral Tablet 10/21/2023 Provider: LISSETTE JONES Diagnosis: Spinal stenosis, lumbar region without neurogenic sheryl One tablet daily as needed Last Documented On 4 9:05AM By RAMON MCLAUGHLIN ; [facility] Atorvastatin Calcium 10 MG Oral Tablet 04/15/2023 Pr ovider: TRACIE WATSON MD Diagnosis: Last Documented On 3 3:06PM By RAMON MCLAUGHLIN ; [facility] Estradiol 1 MG Oral Tablet 04/02/2022 Provider: Diagnosis: Last Documented On 2 9:37AM By RAMON MCLAUGHLIN ; [facility] Lisinopril-hydroCHLOROthiazide 20-12.5 MG Oral Tablet 04/02/2022 Provider: Diagnosis: Last Documented On 2 9:37AM By RAMON MCLAUGHLIN ; [facility] Medications Administered Includes: Administered Medications from this encounter No Administered Medications Recorded Vital Signs Includes: Vital Signs from this encounter Vital Name 09/09/2023 01:22P Blood Pressure Sitting R 128/78 BP Cuff Size Regular Pulse Rate-Sitting (bpm) 66 Temp-Temporal 96.4 Height (in) 60 Weight (lb) 128 Body Mass Index 25 Body Surface Area 1.5 Pain Level 2 Oxygen Saturation (%) 98 Last Documented: On 09/09/2023 1:25PM ; [facility] Results Includes: Results discussed during this encounter [...] today. She was instructed to have a chain saw driver bring her in and drive her home from the procedure. She is instructed on use of antibacterial soap on the night before morning-after. She was instructed to be NPO from midnight the morning the procedure. Preoperative at labs ordered. She like to get this done in [place]. Recommend she get these done as soon [...] Tobacco non-user 04/02/2022 Last Documented On 4 12:55PM ; [facility] Alcohol 04/02/2022 Last Documented On 4 12:55PM ; [facility] Amount of alcohol per day: 1 genaro month? 04/02/2022 Last Documented On 4 12:55PM ; [facility] Difficulty walking 04/02/2022 Last Documented On 4 12:55PM ; [facility] Not using drugs 04/02/2022 Last Documented On 4 12:55PM ; [facility] Smoking Status Unknown Procedures and Surgical History Includes: Procedures from this encounter Procedures Code Diagnosis Performing Provider Service L ocation Service Date use of tobacco assessment performed 1000F Last Documented On 4 12:56PM ; [facility] review of medications documented 1160F Last Documented On 4 12:56PM ; [facility] screening for adult depression: impressi on and score 0 Last Documented On 4 12:56PM ; [facility] Reviewed & agreed to staff entries. Last Documented On 4 12:56PM ; [facility] Clinical summary provided to patient Last Documented On 4 12:56PM ; [facility] SOAPP-R: total score 6 Last Documented On 4 12:56PM ; [facility] Surgical History Last Updated No Pacemaker 04/02/2022 Last Documented On 4 12:55PM ; [facility] Medical History Includes: Medical History addressed during this encounter Description Last Updated Comprehensive metabolic pane l 10/03/2022 she emailed a picture of her lab result I could not print out. Pertinent below: ~BUN 26 ~Creatinine 0.84 ~eGFR >60 ~TSH normal ~CBC unremarkable 10/17/2022 Last Documented On 4 12:55PM ; [facility] caregiver services home 04/02/2022 Last Documented On 4 12:55PM ; [facility] Currently wearing eyeglasses 04/02/2022 Last Documented On 4 12:55PM ; [facility] No Pain Pump 04/02/2022 Last Documented On 4 12:55PM ; [facility] No Spinal cord stimulator 04/02/2022 Last Documented On 4 12:55PM ; [facility] Physical therapy 04/02/2022 Last Documented On 4 12:55PM ; [facility] Please list all surgeries: 08/23/21bladde r sling surgery 04/02/2022 Last Documented On 4 12:55PM ; [facility] Denies a fear of falling. 04/02/2022 Last Documented On 4 12:55PM ; [facility] Has had no fall in the last 12 months. 1 06/02/2021 Last Documented On 4 12:55PM ; [facility] Family History Includes: Family History addressed during this encounter Description Last Updated Maternal history of family history of ki dney disease 04/02/2022 Last Documented On 4 12:55PM ; [facility] Review of Systems Includes: Review of Systems [...] Check-Out Time Diagnosis PAIN MANAGEMENT FOLLOW UP RAMON CHAVARRIAHALEY YAO, [facility] 0[facility] 12:55PM 1:49PM Lumbar Spondylosis,Spinal Stenosis Lumbar,Chronic Pain Syndrome,Intervert ebral Disc Degeneration - Lumbar,Dorsopathy Low Back Pain,Dorsopathy Low Back Pain Vertebrogenic,Scol iosis Dextroscoliosis Insurance Includes: Active Insurance Policies Plan Name Member ID Group # Subscriber Relationship Effect ignacio Dates 1 - MEDICARE PART A CLAIMS/NGS [id number] FRANKLIN Saleh 2 - [employer] [id number] FRANKLIN Saleh Clinical Notes Includes: Clinical Notes from this encounter * Progress note Date Encounter Last Documented by 09/09/2023 PAIN MANAGEMENT FOLLOW UP Last d ocumented on 09/09/2023; 1:51 PM, RAMON St AYSHA SCHULTZ-YODIT, [facility]; [facility] Active Problems & Conditions - Essential Hypertension - Hyperlipidemia Chief Complaint The Chief Complaint is: 2 month follow up after Th. History of Present Illness PHQ-9 Score: 0 [...] today. She was instructed to have a chain saw driver bring her in and drive her home from the procedure. She is instructed on use of antibacterial soap on the night before morning-after. She was instructed to be NPO from midnight the morning the procedure. Preoperative at labs ordered. She like to get this done in [place]. Recommend she get these done as soon [...] days, 0 refills Past Medical/Surgical History Reported: caregiver services home, Physical therapy, and Please list all surgeries: [...] Affect normal. No pain behaviors. Skin: Normal. [place], warm, dry. Tests Educational Testing: Questionnaires PHQ-9: [...] notes, laboratory data, patient self-report questionnaires, and [employer] prescription monitoring database entries. Significant social barriers exist to compliance resulting in limited prognosis. Practice Management Use of tobacco assessment performed Review of medications documented; Screening for adult depression: impression and score 0; [84374] Established outpatient, medically appropriate H&P, moderate level [...] but may be subject to typographical or senior buyer errors. Verify all diagnoses, medications, dosages, and [...]
== END 2024-05-26 14:26 | disposition home or self-care (01) ==
LOC: CHSIMG 14:27
PROVIDERS: PCP Internal Medicine; Visit Provider Internal Medicine
DX: Z12.31 Encounter for screening mammogram for malignant neoplasm of breast (principal)
CPT/HCPCS: 77063; 77067

== ENCOUNTER 2024-10-14 09:17 | Outpatient (CLI) | payer MEDICARE, SELFPAY ==
--- OUTSIDE RECORDS SUMMARY | 2024-10-14 09:25 | XMS_ITS | Continuity of Care Document ---
Author Name [facility] Organization [facility] Care Team Providers Care Merchandise Processor Name Role Phone [facility] Unavailable Unavailable Problems Combined list of problems from [facility] and [facility] facilities. It does not include entries that were removed or entered in error. Problem Status Onset Date Problem Type Date of Resolution Comments Source Atrophic vaginitis Active Condition [facility] GERD - Gastro-Esophageal Reflux Disease ([facility] [id number]) Active Condition Jun 25, 2022 Entered By: CAMDEN MARINO Comment: egd 2020- gastritis [facility] H/O: surgery Active Condition Oct 27, 2019 Entered By: CAMDEN MARINO Comment: TAHBSO in the 902019 Entered By: CAMDEN MARINO Comment: normal colonoscopy October Entered By: CAMDEN MARINO Comment: bladder sling 2021 [facility] HTN - Hypertension ([facility] [id number]) Active Condition [facility] Hyperlipidemia ([facility] [id number]) Active Condition [facility] Low back pain Active Condition Jun Entered By: CAMDEN MARINO Comment: MRI L/spine 2022, LESI 05/2022 [facility] Menopausal and postmenopausal disorders Active Condition [facility] Diagnosis: ICD-10-CM I10 Essential (primary) hypertension Active Diagnosis [facility] Medications Combined list of outpatient medications from [facility] and [facility] facilities.Medications provided include 1) outpatient medications from the last 15 months, and 2) patient-reported medications. Medication Details Route Status Patient Instructions Prescription Expires Prescription Number Last Dispense Date Ordering Provider Order Date Order Qty Source ATORVASTATI N CA 20MG TAB TAKE ONE-HALF TABLET BY MOUTH EVERY EVENING ORAL ACTIVE Dio MARINO 2023 [facility] CALCIUM CITRATE 315MG/VITAM IN D 200UNT TAB TAKE ONE TABLET BY MOUTH EVERY MORNING ORAL ACTIVE MARINO,A RMIDA A 2019 [facility] ESTRADIOL 1MG TAB TAKE ONE TABLET BY MOUTH ONCE A DAY ORAL ACTIVE MARINO,A RMIDA A 2019 [facility] HYDROCHLORO THIAZIDE 12.5MG/DAVIS NOPRIL 20MG TAB TAKE ONE TABLET BY MOUTH EVERY MORNING ORAL ACTIVE MARINO,A RMIDA A 2019 [facility] Immunizations Combined list of available immunizations from the Department of Defense and [facility] Affairs facilities. 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 Comments Source INFLUENZA, SPLIT VIRUS, TRIVALENT, PF 1 2023 140 complet ed HISTORICA L INFORMATI ON - FROM OTHER [facility], [facility] N INFLUENZA, HIGH-DOSE, QUADRIVALENT 2022 NAYELI GREENE LEFT DELTO ID [id number] A 197 complet ed Completed Series, ADMINISTE RED AT [facility] INFLUENZA, UNSPECIFIED FORMULATION 2021 88 complet ed Completed Series, HISTORICA L INFORMATI ON - FROM OTHER [facility], [facility] N ZOSTER RECOMBINANT 2 2020 187 complet ed HISTORICA L INFORMATI ON - FROM OTHER [facility], [facility] N ZOSTER RECOMBINANT 2 2019 187 complet ed [facility] INFLUENZA, INJECTABLE, QUADRIVALENT, PRESERVATIVE FREE 8 2018 150 complet ed HISTORICA L INFORMATI ON - FROM OTHER [facility], [facility] INFLUENZA, UNSPECIFIED FORMULATION 2018 88 complet ed per [facility] PNEUMOCOCCAL POLYSACCHARID E PPV23 2 2018 33 complet ed HISTORICA L INFORMATI ON - FROM OTHER [facility], [facility] PNEUMOCOCCAL POLYSACCHARID E PPV23 2018 33 complet ed [facility] INFLUENZA, INJECTABLE, QUADRIVALENT, PRESERVATIVE FREE 7 2017 150 complet ed HISTORICA L INFORMATI ON - FROM OTHER REGISTRY, [facility] INFLUENZA, INJECTABLE, QUADRIVALENT 6 2016 158 complet ed HISTORICA L INFORMATI ON - FROM OTHER REGISTRY, [facility] INFLUENZA, INJECTABLE, QUADRIVALENT 5 2015 158 complet ed HISTORICA L INFORMATI ON - FROM OTHER REGISTRY, [facility] N TDAP 1 2015 115 complet ed HISTORICA L INFORMATI ON - FROM OTHER REGISTRY, [facility] N PNEUMOCOCCAL CONJUGATE PCV 13 1 2014 133 complet ed HISTORICA L INFORMATI ON - FROM OTHER REGISTRY, [facility] INFLUENZA, SEASONAL, INJECTABLE 4 2014 141 complet ed HISTORICA L INFORMATI ON - FROM OTHER REGISTRY, [facility] INFLUENZA, INJECTABLE, QUADRIVALENT 3 2013 158 complet ed HISTORICA L INFORMATI ON - FROM OTHER REGISTRY, [facility] INFLUENZA, SEASONAL, INJECTABLE 2 2012 141 complet ed HISTORICA L INFORMATI ON - FROM OTHER REGISTRY, [facility] INFLUENZA, SEASONAL, INJECTABLE 1 2011 141 complet ed HISTORICA L INFORMATI ON - FROM OTHER REGISTRY, [facility] Results Combined list of recent chemistry, hematology and other laboratory results from Department of Defense and Veterans Affairs, ranging from 15 months to all on record, depending upon the facility. Order Name Results Value Reference Range Date Interpretation Specimen Comments Source HGA1C HEMOGLOBIN A1C/HEMOGLOB IN.TOTAL IN BLOOD 5.4 4.0 - 6.0 08/27 Specimen Type: BLOOD No comment entered. Ordering Provider: NICOLE MARINO Report Released Date/Time: Aug 28, 2023 08:34 AM Reporting Lab: [facility] [address] [facility] [address] Performing Lab: [facility] [address] [place] [phone] [facility] TSH W/ REFLEX FT4 (STL) THYROTROPIN [UNITS/VOLUM E] IN SERUM OR PLASMA 3.156 u[IU]/ mL 0.47 - 5 08/27 Specimen Type: PLASMA No comment entered. Ordering Provider: NICOLE MARINO Report Released Date/Time: Aug 28, 2023 08:34 AM Reporting Lab: [address] [address] Performing Lab: [address] [phone] [place] [address] VITAMIN D, 25-HYDROXY 25-HYDROXYVI TAMIN D3 [MASS/VOLUME ] IN SERUM OR PLASMA 34.0 ng/mL 30 - 96 08/27 Specimen Type: SERUM No comment entered. Ordering Provider: NICOLE MARINO Report Released Date/Time: Aug 28, 2023 08:34 AM Reporting Lab: [address] [address] Performing Lab: [address] [phone] [place] [address] COMPREHENSI VE METABOLIC PANEL CREATININE [MASS/VOLUME ] IN SERUM OR PLASMA 0.82 mg/dL 0.6 - 1.1 08/27 Specimen Type: PLASMA Comment: No hemolysis noted. Ordering Provider: NICOLE MARINO Report Released Date/Time: Aug 28, 2023 08:34 AM Reporting Lab: [address] [address] Performing Lab: [address] [phone] [place] [address] COMPREHENSI VE METABOLIC PANEL UREA NITROGEN [MASS/VOLUME ] IN SERUM OR PLASMA 19.1 mg/dL 9.0 - 25.0 08/27 Specimen Type: PLASMA Comment: No hemolysis noted. Ordering Provider: NICOLE MARINO Report Released Date/Time: Aug 28, 2023 08:34 AM Reporting Lab: [address] [address] Performing Lab: [facility] [address] [facility] [address] [facility] COMPREHENSI VE METABOLIC PANEL GLUCOSE [MASS/VOLUME ] IN SERUM OR PLASMA 87 mg/dL 72 - 99 08/27 Specimen Type: PLASMA Comment: No hemolysis noted. Ordering Provider: NICOLE MARINO Report Released Date/Time: Aug 28, 2023 08:34 AM Reporting Lab: [facility] [address] [place] [phone] Performing Lab: [facility] [address] [place] [phone] [place] [address] COMPREHENSI VE METABOLIC PANEL SODIUM [MOLES/VOLUM E] IN SERUM OR PLASMA 141 meq/L 136 - 145 08/27 Specimen Type: PLASMA Comment: No hemolysis noted. Ordering Provider: NICOLE MARINO Report Released Date/Time: Aug 28, 2023 08:34 AM Reporting Lab: [facility] [address] [place] [phone] Performing Lab: [address] [address] [facility] COMPREHENSI VE METABOLIC PANEL POTASSIUM [MOLES/VOLUM E] IN SERUM OR PLASMA 3.9 meq/L 3.5 - 5 08/27 Specimen Type: PLASMA Comment: No hemolysis noted. Ordering Provider: NICOLE MARINO Report Released Date/Time: Aug 28, 2023 08:34 AM Reporting Lab: [facility] [address] [place] [phone] Performing Lab: [address] [address] [facility] COMPREHENSI VE METABOLIC PANEL CHLORIDE [MOLES/VOLUM E] IN SERUM OR PLASMA 107 meq/L 98 - 107 08/27 Specimen Type: PLASMA Comment: No hemolysis noted. Ordering Provider: NICOLE MARINO Report Released Date/Time: Aug 28, 2023 08:34 AM Reporting Lab: [facility] [address] [facility] [address] Performing Lab: [facility] [address] [facility] [address] [facility] COMPREHENSI VE METABOLIC PANEL CARBON DIOXIDE, TOTAL [MOLES/VOLUM E] IN SERUM OR PLASMA 24 meq/L 22 - 31 08/27 Specimen Type: PLASMA Comment: No hemolysis noted. Ordering Provider: NICOLE MARINO Report Released Date/Time: Aug 28, 2023 08:34 AM Reporting Lab: [facility] [address] [facility] [address] Performing Lab: [facility] [address] [place] [phone] [facility] COMPREHENSI VE METABOLIC PANEL CALCIUM [MASS/VOLUME ] IN SERUM OR PLASMA 10.1 mg/dL 8.4 - 10.4 08/27 Specimen Type: PLASMA Comment: No hemolysis noted. Ordering Provider: NICOLE MARINO Report Released Date/Time: Aug 28, 2023 08:34 AM Reporting Lab: [facility] [address] [facility] [address] Performing Lab: [facility] [address] [place] [phone] [facility] COMPREHENSI VE METABOLIC PANEL PROTEIN [MASS/VOLUME ] IN SERUM OR PLASMA 7.2 g/dL 6 - 8.6 08/27 Specimen Type: PLASMA Comment: No hemolysis noted. Ordering Provider: NICOLE MARINO Report Released Date/Time: Aug 28, 2023 08:34 AM Reporting Lab: [facility] [address] [facility] [address] Performing Lab: [facility] [address] [place] [phone] [facility] COMPREHENSI VE METABOLIC PANEL ALBUMIN [MASS/VOLUME ] IN SERUM OR PLASMA 4.4 g/dL 3.4 - 5 08/27 Specimen Type: PLASMA Comment: No hemolysis noted. Ordering Provider: MARINO,AR MIDA A Report Released Date/Time: Aug 28, 2023 08:34 AM Reporting Lab: [facility] [address] [place] [phone] Performing Lab: [facility] [address] [place] [phone] [place] [address] COMPREHENSI VE METABOLIC PANEL BILIRUBIN.TO ADRIENNE [MASS/VOLUME ] IN SERUM OR PLASMA 0.4 mg/dL 0.2 - 1.2 08/27 Specimen Type: PLASMA Comment: No hemolysis noted. Ordering Provider: NICOLE MARINO Report Released Date/Time: Aug 28, 2023 08:34 AM Reporting Lab: [address] [address] Performing Lab: [address] [phone] [place] [address] COMPREHENSI VE METABOLIC PANEL ALKALINE PHOSPHATASE [ENZYMATIC ACTIVITY/VOL UME] IN SERUM OR PLASMA 61 U/L 40 - 150 08/27 Specimen Type: PLASMA Comment: No hemolysis noted. Ordering Provider: NICOLE MARINO Report Released Date/Time: Aug 28, 2023 08:34 AM Reporting Lab: [facility] [address] [place] [phone] Performing Lab: [address] [phone] [place] [address] COMPREHENSI VE METABOLIC PANEL ASPARTATE AMINOTRANSFE RASE [ENZYMATIC ACTIVITY/VOL UME] IN SERUM OR PLASMA 35 U/L 5 - 34 08/27 H Specimen Type: PLASMA Comment: No hemolysis noted. Ordering Provider: NICOLE MARINO Report Released Date/Time: Aug 28, 2023 08:34 AM Reporting Lab: [facility] [address] [place] [phone] Performing Lab: [facility] [address] [place] [phone] [facility] COMPREHENSI VE METABOLIC PANEL ALANINE AMINOTRANSFE RASE [ENZYMATIC ACTIVITY/VOL UME] IN SERUM OR PLASMA 35 U/L 8 - 40 08/27 Specimen Type: PLASMA Comment: No hemolysis noted. Ordering Provider: NICOLE MARINO Report Released Date/Time: Aug 28, 2023 08:34 AM Reporting Lab: [facility] [address] [place] [phone] Performing Lab: [address] [phone] [place] [address] COMPREHENSI VE METABOLIC PANEL GLOMERULAR FILTRATION RATE/1.73 SQ M.PREDICTED [VOLUME RATE/AREA] IN SERUM, PLASMA OR BLOOD BY CREATININE-B ASED FORMULA (CKD-EPI 2020) 75.5 60 08/27 Specimen Type: PLASMA Comment: No hemolysis noted. Ordering Provider: NICOLE MARINO Report Released Date/Time: Aug 28, 2023 08:34 AM Reporting Lab: [address] [address] Performing Lab: [address] [phone] [place] [address] CBC LEUKOCYTES [#/VOLUME] IN BLOOD BY AUTOMATED COUNT 7.1 10*3/u L 3.6 - 11.2 08/27 Specimen Type: BLOOD No comment entered. Ordering Provider: NICOLE MARINO Report Released Date/Time: Aug 28, 2023 08:34 AM Reporting Lab: [address] [address] Performing Lab: [address] [phone] [place] [address] CBC ERYTHROCYTES [#/VOLUME] IN BLOOD BY AUTOMATED COUNT 4.70 10*6/u L 3.60 - 5.00 08/27 Specimen Type: BLOOD No comment entered. Ordering Provider: NICOLE MARINO Report Released Date/Time: Aug 28, 2023 08:34 AM Reporting Lab: [address] [address] Performing Lab: [address] [place] [address] [facility] CBC HEMOGLOBIN [MASS/VOLUME ] IN BLOOD 14.5 g/dL 11.0 - 14.9 08/27 Specimen Type: BLOOD No comment entered. Ordering Provider: NICOLE MARINO Report Released Date/Time: Aug 28, 2023 08:34 AM Reporting Lab: [address] [address] Performing Lab: [address] [phone] [facility] CBC HEMATOCRIT [VOLUME FRACTION] OF BLOOD 45.0 32.6 - 43.4 08/27 H Specimen Type: BLOOD No comment entered. Ordering Provider: NICOLE MARINO Report Released Date/Time: Aug 28, 2023 08:34 AM Reporting Lab: [address] [address] Performing Lab: [address] [address] [facility] CBC MCV [ENTITIC VOLUME] BY AUTOMATED COUNT 95.7 fL 80.0 - 100.0 08/27 Specimen Type: BLOOD No comment entered. Ordering Provider: NICOLE MARINO Report Released Date/Time: Aug 28, 2023 08:34 AM Reporting Lab: [address] [address] Performing Lab: [facility] [address] [place] [phone] [facility] CBC MCH [ENTITIC MASS] BY AUTOMATED COUNT 30.9 pg 27.0 - 34.0 08/27 Specimen Type: BLOOD No comment entered. Ordering Provider: INCOLE MARINO Report Released Date/Time: Aug 28, 2023 08:34 AM Reporting Lab: [address] [address] Performing Lab: [address] [address] [facility] CBC MCHC [MASS/VOLUME ] BY AUTOMATED COUNT 32.2 g/dL 33.0 - 36.0 08/27 L Specimen Type: BLOOD No comment entered. Ordering Provider: NICOLE MARINO Report Released Date/Time: Aug 28, 2023 08:34 AM Reporting Lab: [facility] [address] [place] [phone] Performing Lab: [facility] [address] [facility] [address] [facility] CBC PLATELETS [#/VOLUME] IN BLOOD BY AUTOMATED COUNT 321 10*3/u L 150 - 400 08/27 Specimen Type: BLOOD No comment entered. Ordering Provider: NICOLE MARINO Report Released Date/Time: Aug 28, 2023 08:34 AM Reporting Lab: [facility] [address] [place] [phone] Performing Lab: [facility] [address] [facility] [address] [facility] CBC PLATELET MEAN VOLUME [ENTITIC VOLUME] IN BLOOD BY AUTOMATED COUNT 9.6 fL 7.5 - 11.2 08/27 Specimen Type: BLOOD No comment entered. Ordering Provider: NICOLE MARINO Report Released Date/Time: Aug 28, 2023 08:34 AM Reporting Lab: [facility] [address] Performing Lab: [facility] [address] [facility] [address] [facility] CBC ERYTHROCYTE DISTRIBUTION WIDTH [RATIO] BY AUTOMATED COUNT 12.8 11.8 - 15.1 08/27 Specimen Type: BLOOD No comment entered. Ordering Provider: NICOLE MARINO Report Released Date/Time: Aug 28, 2023 08:34 AM Reporting Lab: [facility] [address] Performing Lab: [facility] [address] [place] [phone] [facility] CBC LYMPHOCYTES/ 100 LEUKOCYTES IN BLOOD BY AUTOMATED COUNT 22 08/27 Specimen Type: BLOOD No comment entered. Ordering Provider: NICOLE MARINO Report Released Date/Time: Aug 28, 2023 08:34 AM Reporting Lab: [facility] [address] [facility] [address] Performing Lab: [facility] [address] [facility] [address] [facility] CBC MONOCYTES/10 0 LEUKOCYTES IN BLOOD BY AUTOMATED COUNT 10 08/27 Specimen Type: BLOOD No comment entered. Ordering Provider: NICOLE AMRINO Report Released Date/Time: Aug 28, 2023 08:34 AM Reporting Lab: [facility] [address] [facility] [address] Performing Lab: [facility] [address] [facility] [phone] [place] [address] CBC NEUTROPHILS/ 100 LEUKOCYTES IN BLOOD BY AUTOMATED COUNT 65 08/27 Specimen Type: BLOOD No comment entered. Ordering Provider: NICOLE MARINO Report Released Date/Time: Aug 28, 2023 08:34 AM Reporting Lab: [facility] [address] [facility] [address] Performing Lab: [facility] [address] [facility] [address] [facility] CBC EOSINOPHILS/ 100 LEUKOCYTES IN BLOOD BY AUTOMATED COUNT 2 08/27 Specimen Type: BLOOD No comment entered. Ordering Provider: NICOLE MARINO Report Released Date/Time: Aug 28, 2023 08:34 AM Reporting Lab: [facility] [address] [facility] [address] Performing Lab: [facility] [address] [facility] [address] [facility] CBC BASOPHILS/10 0 LEUKOCYTES IN BLOOD BY AUTOMATED COUNT 1 08/27 Specimen Type: BLOOD No comment entered. Ordering Provider: NICOLE MARINO Report Released Date/Time: Aug 28, 2023 08:34 AM Reporting Lab: [facility] [address] [place], [place] [phone] Performing Lab: [facility] [address] [place] [address] [phone] CBC LYMPHOCYTES [#/VOLUME] IN BLOOD BY AUTOMATED COUNT 1.53 10*3/u L 0.77 - 4.50 08/27 Specimen Type: BLOOD No comment entered. Ordering Provider: NICOLE MARINO Report Released Date/Time: Aug 28, 2023 08:34 AM Reporting Lab: [facility] [address] [place] [address] Performing Lab: [address] [phone] CBC MONOCYTES [#/VOLUME] IN BLOOD BY AUTOMATED COUNT 0.70 10*3/u L 0.19 - 0.80 08/27 Specimen Type: BLOOD No comment entered. Ordering Provider: NICOLE MARINO Report Released Date/Time: Aug 28, 2023 08:34 AM Reporting Lab: [facility] [address] [place] [phone] Performing Lab: [facility] [address] [place] [phone] [place] [address] CBC NEUTROPHILS [#/VOLUME] IN BLOOD BY AUTOMATED COUNT 4.61 10*3/u L 2.10 - 8.00 08/27 Specimen Type: BLOOD No comment entered. Ordering Provider: NICOLE MARINO Report Released Date/Time: Aug 28, 2023 08:34 AM Reporting Lab: [facility] [address] [place] [phone] Performing Lab: [facility] [address] [place] [address] [phone] [place] [address] CBC EOSINOPHILS [#/VOLUME] IN BLOOD BY AUTOMATED COUNT 0.13 10*3/u L 0.00 - 0.60 08/27 Specimen Type: BLOOD No comment entered. Ordering Provider: NICOLE MARINO Report Released Date/Time: Aug 28, 2023 08:34 AM Reporting Lab: [facility] [address] [facility] [address] Performing Lab: [facility] [address] [facility] [address] [facility] CBC BASOPHILS [#/VOLUME] IN BLOOD BY AUTOMATED COUNT 0.06 10*3/u L 0.00 - 0.20 08/27 Specimen Type: BLOOD No comment entered. Ordering Provider: NICOLE MARINO Report Released Date/Time: Aug 28, 2023 08:34 AM Reporting Lab: [facility] [address] [place] [phone] Performing Lab: [facility] [address] [place] [phone] [place] [address] LIPID PANEL (STL) CHOLESTEROL [MASS/VOLUME ] IN SERUM OR PLASMA 211 mg/dL 0 - 200 08/27 H Specimen Type: PLASMA Comment: No hemolysis noted. Ordering Provider: NICOLE MARINO Report Released Date/Time: Aug 28, 2023 08:34 AM Reporting Lab: [facility] [address] [place] [phone] Performing Lab: [facility] [address] [place] [phone] [facility] LIPID PANEL (STL) TRIGLYCERIDE [MASS/VOLUME ] IN SERUM OR PLASMA 222 mg/dL 0 - 150 08/27 H Specimen Type: PLASMA Comment: No hemolysis noted. Ordering Provider: NICOLE MARINO Report Released Date/Time: Aug 28, 2023 08:34 AM Reporting Lab: [facility] [address] [facility] [address] Performing Lab: [facility] [address] [place] [phone] [facility] LIPID PANEL (STL) CHOLESTEROL IN LDL [MASS/VOLUME ] IN SERUM OR PLASMA BY CALCULATION 96 mg/dL 08/27 Specimen Type: PLASMA Comment: No hemolysis noted. Ordering Provider: NICOLE MARINO Report Released Date/Time: Aug 28, 2023 08:34 AM Reporting Lab: [address] [id number] Performing Lab: [address] [address] [facility] LIPID PANEL (STL) CHOLESTEROL IN HDL [MASS/VOLUME ] IN SERUM OR PLASMA 71 mg/dL 40 08/27 Specimen Type: PLASMA Comment: No hemolysis noted. Ordering Provider: NICOLE MARINO Report Released Date/Time: Aug 28, 2023 08:34 AM Reporting Lab: [address] [address] Performing Lab: [address] [address] [facility] Encounters Combined list of: 1) Encounters from Department of [facility] Affairs facilities going backup to the last 18 months, not all [place] inpatient encounters are included; 2) Encounters from the Department of [place] facilities going backup to 280 months. Location Location Details Encounter Type Encounter Number Reason For Visit Attending Provider ADM Date DC Date Status Disposition Source [facility] Outpatient Encounter [id number] NICOLE MARINO A 08/27 [facility] OFFICE O/P EST MOD 30 MIN [id number] Diagnos is: ICD-10- CM I10 Essenti al (primar y) hyperte nsion NICOLE MARINOA A 08/27 [facility] Outpatient Encounter [id number] 09/07 [facility] Encounter [id number] 02/18 [facility] OFFICE O/P EST MOD 30 MIN [id number] Diagnos is: ICD-10- CM I10 Essenti al (primar y) hyperte nsion MARINO,AR MIDA A 05/31 [facility] Outpatient Encounter [id number] 06/27 [facility] Social History Combined list of available smoking, tobacco, and other social history from Department of Defense and [facility] facilities. Social History Type Response Date Comment [facility] e Tobacco smoking status LAIS VA-TOBACCO NEVER USED 08/28/2023 [facility] History of tobacco use VA-TOBACCO NEVER USED 06/25/2022 [facility] History of tobacco use VA-TOBACCO NEVER USED 10/19/2019 [facility]
--- OUTSIDE RECORDS SUMMARY | 2024-10-14 09:25 | XMS_ITS | Encounter Summary ---
Author Name [facility] ([place] Organization [facility] ([place]) Address [address] [place] [address] Care Team Providers Care Photolithographic Stripper Name Role Phone CAMDEN MARINO Primary Care Provider Adryan e Insurance Providers: All historical and current Section Date Range: From patient's date of to the date document was created. This section includes the names of all active insurance providers for the patient. Insurance Provider Type of Coverage Plan Name Start of Policy Coverage End of Policy Coverage Group Number Member ID Insurance Provider's Telephone Number Policy Herrera's Name Patient's Relationship to Policy Herrera MEDICARE (WNR) MEDICARE (M) PART A Nov 01, 2014 PART A [id number] DO SIMPSON PATIENT MEDICARE (WNR) MEDICARE (M) PART B Nov 01, 2014 PART B [id number] [phone] DO SIMPSON PATIENT [employer] [place] MEDICARE SUPPLEMEN [employer] MEDIC ARE SUPPL EMENT Mar 04, 2021 PLAN N [id number] [phone] DO SIMPSON PATIENT Selected Encounter This section includes the information on record at [place] for the Encounter. Date/Time Encounter Type Encounter Description Reason Provider Source May 31, 2024 09:00 AM OFFICE O/P EST MOD 30 MIN PRIMARY CARE/MEDICINE ICD-10-CM I10 Essential (primary) hypertension JAMILAARMID A A IHE Encounter Template Text not used by [place] Assessments - Encounter Diagnoses This section includes the primary and secondary diagnoses documented for the Encounter. Date/Time Primary/Secondary Diagnosis Diagnosis Name Provider Source May 31, 2024 09:22 AM PRIMARY Essential (primary) hypertension CAMDEN MARINO [facility] May 31, 2024 09:22 AM SECONDARY Hyperlipidemia, unspecified MARINO,CAMDEN [place] [facility] May 31, 2024 09:22 AM SECONDARY Low back pain, unspecified MARINO,CAMDEN [place] [facility] May 31, 2024 09:22 AM SECONDARY Postmenopausal atrophic vaginitis MARINO,CAMDEN A [facility] Social History: Smoking Status (Most current) and Tobacco Use (All prior to encounter date) This section includes the most current, and the historical, smoking and tobacco- related health factors from the [place] facility where the Encounter took place. Current Smoking Status This section includes the most current smoking, or tobacco-related health factor, from the [place] facility where the Encounter took place. Date/Time Current Smoking Status Comment Facil ity Aug 28, 2023 02:30 PM VA-TOBACCO NEVER USED [facility] Tobacco Use History This section includes a history of the smoking, or tobacco-related health factors, that were collected on or before the date of the Encounter. The data comes from the [place] facility where the Encounter took place. Date/Time Smoking Status/Tobacco Use Comment F acmerly Jun 25, 2022 11:30 AM VA-TOBACCO NEVER USED [facility] Encounter Notes: All associated encounter notes This section contains the clinical notes associated to the Encounter. Date/Time Encounter Note(s) Provider Source May 31, 2024 09:11 AM TELEHEALTH NOTE: LOCAL TITLE: PRIMARY CARE VIDEO CONNECT [facility] STANDARD TITLE: TELEHEALTH NOTE DATE OF NOTE: MAY 31, 2024@09:11 ENTRY DATE: MAY 31, 2024@09:11:19 AUTHOR: CAMDEN MARINO EXP COSIGNER: URGENCY: STATUS: COMPLETED Medicine Provider Note Modality of Care: Clinical Video Telehealth Visit conducted by Clinical Video Telehealth. Patient/surrogate provided verbal consent for video telehealth. Patient location confirmed. Emergency number confirmed. Patient Contact Details: Best contact number for backup communication with patient: Patient f/u htn and LBP HPI:denies any bp issues, denies cp, sob, palpitations. back pain better, also received SI joint injection which helped with pain, slipped on ice and has a bit of tailbone pain, no fracture noted on XR.. denies loss of bowel nor bladder control .hx of abnormal mammo , last one was normal, dense breast , doone fiew days ago. Will obtain outside [facility]. Non[facility] Providers:Dr Ly- follows mammo and DEXA yearly SOURCE(S) OF HISTORY: Patient PAST MEDICAL HISTORY: 1) HTN - Hypertension ([facility] [id number]) 2) Hyperlipidemia ([facility] [id number]) 3) Menopausal and postmenopausal disorders 4) Atrophic vaginitis 5) H/O: surgery comment: JAZLYN in the comment: normal colonoscopy October 2017 comment: bladder sling 2021 6) Low back pain comment: MRI L/spine 2022, LESI 05/2022 7) GERD - Gastro-Esophageal Reflux Disease ([facility] [id number]) comment: egd 2020- gastritis FAMILY HISTORY: No new updates. SOCIAL HISTORY: NICOTINE: Nicotine User: No ILLICIT DRUGS: No ETOH: denies ALLERGIES: Patient has answered NKA ALLERGY REVIEW: Allergy list reviewed and remains current. MEDICATION RECONCILIATION: I have reviewed the patient's medication list with the patient and/or his/her care-ldr rn. Handwritten corrections, additions and/or deletions were made to the list. Corrected Outpatient Medication List was provided to the patient/caregiver. Active Outpatient Medications (including Supplies): Active Non-VA Medications Status 1) Non-VA CALCIUM CITRATE 315MG/VIT D 200 UNT TAB 1 ACTIVE TABLET BY MOUTH EVERY MORNING 2) Non-VA ESTRADIOL 1MG TAB 1MG BY MOUTH ONCE A DAY ACTIVE 3) Non-VA HCTZ 12.5/LISINOPRIL 20MG TAB 1 TABLET BY ACTIVE MOUTH EVERY MORNING 4) Non-VA IBUPROFEN 600MG TAB 600MG BY MOUTH TWICE A DAY ACTIVE REVIEW OF SYSTEMS: General: Normal No Fevers, Chills, Weight Loss, Weight Gain, Recent Illness. Ears, Nose, Mouth, Throat: Normal No new loss of hearing or tinnitus, no Dental issue, Difficulty swallowing, Vertigo. Eye: Normal No Trauma, Cataracts, Glaucoma, Blurred vision Cardiovascular: Normal No Chest pain, Dizziness, Palpitations. Respiratory: Normal No Cough, SOB, Hemoptysis, Epistaxis, Influenza symptoms, +PDD. PHYSICAL EXAMINATION: reported BP 120/80 AL 80 wt 126 lbs General: pleasant, cooperative, well-developed, well-nourished, appropriately dressed and groomed [place]; Respirations even and non-labored Psych:Affect appropriate. Neuro: Oriented x3. ASSESSMENT/PLAN: #. LBP- better, cpm per NON VA PCP, f.u pain mngt . monitor #. HTN , stable cpm # GERD stable # menopause and atrophic vaginits on HRT per NON VA pcp scope and mammo in [facility] RETURN TO CLINIC:annual/sooner prn Return to Clinic order placed SUMMARY STATEMENT: Plan of care has been discussed with including expected therapeutic benefits and potential side effects of prescribed medication and treatments. verbalizes understanding and is in agreement with the plan of care. Patient was instructed to keep all scheduled appointments and contact detail maker and fitter for any additional problems. PREVENTION & SCREENING: ALCOHOL: Clinical Reminder not due now or within a month BLOOD PRESSURE: Clinical Reminder not due now or within a month HEMOGLOBIN A1C: Clinical Reminder not due now or within a month V15-VA Video Connect/Video to Home: [facility] Video Connect (VVC)/Video to home template v1.5 Visit conducted by synchronous telehealth. [place] Location/emergency number confirmed. Environment surveyed and all participants identified. Virtual conference room locked. VVC/Video to home appointment information: The following items were reviewed: - The nature of telehealth, its benefits, and risks. - Confidentiality and its limits. - The importance of having a confidential location for the service. - The emergency plan. - The appointment should be treated like an in person appointment (no smoking or driving during session, showing up fully dressed, etc.) *The Virtual Medical Room was locked for this encounter. *A survey of the environment was conducted and it is appropriate to conduct a VVC appointment. *Confirmed [place]'s Non-VA location for this appointment: [facility] [address] [place], [place] [address] Address and phone number verified with [place]. Address: Phone: Emergency Contact: Name: Mr Colten Simpson, spouse. same addres and phone number as Phone: *[place] was notified of right to decline Telehealth services and eligibility for other options. [place] consented to be seen via VVC. EMERGENCY PLAN In the event of an emergency, the [place] or family will call emergency services, if capable. The Teleprovider will remain in the virtual medical room until emergency response arrives and handoff to emergency services is complete. If is unable to make emergency call, the Teleprovider is to call the national E911 service at [phone] and ask to be connected to emergency services for the 's location. [facility] Crisis Line: Dial 988 then press 1, or text [phone] Office of Connected [facility] Helpdesk (OCC): [phone] or [phone] Verified Provider's location and contact information for this appointment: [facility] [address] [place] [address] x /es/ CAMDEN MARINO MD Signed: 05/31/2024 09:23 CAMDEN MARINO [facility]
[2024-10-14 09:38] LABS: Hematocrit 45.3 % (35.0-42.0); Hemoglobin 14.7 g/dL (11.7-13.8); Mean Corpuscular HGB Conc 32.5 g/dL (32-36); Mean Corpuscular Hemoglobin 30.6 pg (27.0-31.0); Mean Corpuscular Volume 94.4 fL (78.0-102.0); Platelet Count Result 287 K/mm3 (150-420); Red Cell Distribution Width 12.1 % (11.6-14.4); White Blood Count 5.5 K/mm3 (4.8-10.8)
[2024-10-14 10:00] LABS: Alanine Aminotransferase 30 U/L (6-35); Albumin Level 4.3 g/dL (3.5-5.1); Alkaline Phosphatase 67 U/L (38-126); Anion Gap 5 mmol/L (4-12); Aspartate Amino Transferase 39 U/L (14-36); Bilirubin,Total 0.7 mg/dL (0.2-1.3); Blood Urea Nitrogen 18 mg/dL (7-17); Calcium 9.3 mg/dL (8.4-10.2); Carbon Dioxide 28 mmol/L (22-30); Chloride 104 mmol/L (98-107); Cholesterol 192 mg/dL (0-200); Estimated Glomerular Filt Rate > 60; Glucose 85 mg/dL (65-110); HDL Direct 89 mg/dL; LDL Cholesterol Calculated 87 mg/dL (<130); Osmolality Calculated 284 mOsm/kg (285-295); Potassium 3.9 mmol/L (3.4-5.0); Sodium 137 mmol/L (137-145); Total Protein 7.1 g/dL (6.3-8.2); Triglycerides 79 mg/dL (<150)
[2024-10-14 10:13] LABS: Add Urine Microscopic? NO; Appearance Urine Clear (Clear); Bilirubin Urine Negative (Negative); Blood Urine Negative (Negative); Color Urine Light Yellow (Yellow); Glucose Urine UA Negative (Negative); Ketones Urine Negative (Negative); Leukocyte Esterase Ur Negative LEU/UL (Negative); Nitrate Urine Negative (Negative); Protein Urine Negative (Negative); Specific Grav Ur 1.015 (1.010-1.020); Urobilinogen Urine 0.2 mg/dL (0.2-1.0)
[2024-10-14 15:16] LABS: GGT 30.7 U/L (12-43)
[2024-10-16 02:53] LABS: Hepatitis B Core Antibody NON-REACTIVE (NON-REACTIVE)
[2024-10-16 06:59] LABS: Hepatitis B Surface Antigen NON-REACTIVE (NON-REACTIVE)
[2024-10-16 07:29] LABS: Hepatitis A Antibody IgM NON-REACTIVE (NON-REACTIVE); Hepatitis C Virus Antibody NON-REACTIVE (NON-REACTIVE)
== END 2024-10-14 09:18 | disposition home or self-care (01) ==
LOC: CHSLAB 09:21
PROVIDERS: PCP Internal Medicine; Visit Provider Internal Medicine
DX: I10 Essential (primary) hypertension (principal); E78.5 Hyperlipidemia, unspecified; N39.0 Urinary tract infection, site not specified; R74.01 Elevation of levels of liver transaminase levels
CPT/HCPCS: 36415; 80053; 80061; 80074; 81003; 82977; 84443; 85027

== ENCOUNTER 2024-11-23 10:57 | Outpatient (RCR) | payer MEDICARE, OTHER, SELFPAY ==
--- NOTE | 2024-11-23 12:12 | OPREHPOC ---
Outpatient Therapy Plan of Care This is a Multidisciplinary Plan of Care that may contain components documented by all disciplines (PT, OT, and ST.) PT Problem 1 PT Problem #1 Knowledge Deficit PT Goal 1 Goal / Goal Update Independent and compliant with HEP. Target Visit 2 PT Problem 2 PT Problem #2 Impaired Strength PT Goal 1 Goal / Goal Update Pt to improve upper and lower abdominal strength to 4+/5. Pt to improve bilat hip strength to 4+/5. Pt to improve bilat knee strength to 5/5. Target Visit 12 PT Problem 3 PT Problem #3 Impaired Functional Mobility PT Goal 1 Goal / Goal Update Pt to ambulate with improved trendelenburg pattern using LRAD to indicate improved hip and lumbar stability. Pt to report 20% or less perceived disability on oswestry. Target Visit 12
--- NOTE | 2024-11-23 12:12 | PTOPEVAL1 ---
Assessment and note entered by Rashmi Kemp, PT Evaluation Information Assessment Status Evaluation ICD-10 Condition Codes (PT) Pain in low back M54.50 Other ICD-10 Condition Codes ( M48.061 PT) Onset 11/01/22 Subjective Information Pt reports her low back pain has been going on for a couple years and she's had therapy for it before. She's had injections in her low back and reports her pain is different than before. She's getting an MRI on her low back tomorrow. States her pain management doctor recommended her to come to PT and she does do some exercises, but feels like her core is weak and is wanting some more advanced exercises. Denies NTB down the legs and reports her pain is primarily in her low back and buttock area. Denies any real pain when sitting but notes aching sensation and discomfort. Reported Pain Level Pain Score 3: Self Report Assessment PT Clinical Summary Mrs. Simpson is a 73 yo female who presents for skilled PT evaluation for low back pain. She has a history of stenosis, disc degeneration and also has scoliosis. She demonstrates good mobility and flexibility but displays moderate hip, knee and core weakness. She also demonstrates trendelenburg gait pattern when ambulating without her cane. She will benefit from skilled PT intervention to improve her strength and gait to allow her to perform daily ADLs and functional mobility tasks with less difficulty. Plan of Care Interventions Electrical Stimulation,Gait Training,Hot Pack/Cold Pack,Manual Therapy,Neuro Re-education,Patient/ Caregiver Education,Therapeutic Activities, Therapeutic Exercise,Self-Care/Home Management PT Services Indicated Yes Treatment Frequency and 2x/week for 12 visits Duration These treatments will address the objective and functional deficits as defined above. The patient will be advanced safely and appropriately in order for the patient to progress towards his/her prior level of function. Additional exercises will be introduced and as well as a comprehensive home exercise program upon discharge, if needed, ?to ensure carryover of functional gains achieved in the clinic. This treatment plan has been reviewed and agreement upon by the patient.
--- NOTE | 2024-12-28 10:40 | OPREHPOC ---
Outpatient Therapy Plan of Care This is a Multidisciplinary Plan of Care that may contain components documented by all disciplines (PT, OT, and ST.) PT Problem 1 PT Problem #1 Knowledge Deficit PT Goal 1 Goal / Goal Update Independent and compliant with HEP. Target Visit 2 Progress Met PT Problem 2 PT Problem #2 Impaired Strength PT Goal 1 Goal / Goal Update Pt to improve upper and lower abdominal strength to 4+/5. -slight progress Pt to improve bilat hip strength to 4+/5. -slight progress Pt to improve bilat knee strength to 5/5. Target Visit 12 Progress Not Met PT Problem 3 PT Problem #3 Impaired Functional Mobility PT Goal 1 Goal / Goal Update Pt to ambulate with improved trendelenburg pattern using LRAD to indicate improved hip and lumbar stability. -progress Pt to report 20% or less perceived disability on oswestry. -not met Target Visit 12 Progress Not Met
--- NOTE | 2024-12-28 10:40 | PTOPPROG ---
Assessment and note entered by Rashmi Kemp, PT Evaluation Information Assessment Status Progress ICD-10 Condition Codes (PT) Pain in low back M54.50 Other ICD-10 Condition Codes ( M48.061 PT) Onset 11/01/22 Subjective Information Pt reports today is a good day in regards to her pain. She reports she did not have any severe pain after her last session. She reports that the mornings are when her pain is at it's highest but it does subside, and she has been keeping up with her exercises at home. Overall she feels much stronger than before starting therapy but her pain severity is still as high as it was kevon. in the mornings. She has not had any spasms since last week, however during session pt noted onset of a spasm when rising out of her chair. Assessment PT Clinical Summary Mrs. Simpson has attended 10 skilled PT visits for low back pain. She verbalizes feeling like she's gotten stronger but her pain is still the same severity and is worse in the mornings. She has made slight progress in her hip strength and core strength however testing was slightly limited today due to onset of pain shortly before objective testing. She has recently been experiencing short bursts of severe pain in her R lower back and gluteal region which appear to be spasms as the pain subsides with manual pressure and modalities. She does demonstrate improved gait this date with less prominent trendelenburg pattern noted while using cane. She has not yet met any therapeutic goals addressing strength and functional mobility and will benefit from further skilled PT intervention to continue addressing deficits to make further progress. Plan of Care Interventions Electrical Stimulation,Gait Training,Hot Pack/Cold Pack,Manual Therapy,Neuro Re-education,Patient/ Caregiver Education,Therapeutic Activities, Therapeutic Exercise,Self-Care/Home Management PT Services Indicated Yes Treatment Frequency and Continue per original POC Duration These treatments will address the objective and functional deficits as defined above. The patient will be advanced safely and appropriately in order for the patient to progress towards his/her prior level of function. Additional exercises will be introduced and as well as a comprehensive home exercise program upon discharge, if needed, ?to ensure carryover of functional gains achieved in the clinic. This treatment plan has been reviewed and agreement upon by the patient.
--- NOTE | 2025-01-06 15:31 | OPREHPOC ---
Outpatient Therapy Plan of Care This is a Multidisciplinary Plan of Care that may contain components documented by all disciplines (PT, OT, and ST.) PT Problem 1 PT Problem #1 Knowledge Deficit PT Goal 1 Goal / Goal Update Independent and compliant with HEP. Target Visit 2 Progress Met PT Problem 2 PT Problem #2 Impaired Strength PT Goal 1 Goal / Goal Update Pt to improve upper and lower abdominal strength to 4+/5. -met Pt to improve bilat hip strength to 4+/5. -met Pt to improve bilat knee strength to 5/5. Target Visit 12 Progress Met PT Problem 3 PT Problem #3 Impaired Functional Mobility PT Goal 1 Goal / Goal Update Pt to ambulate with improved trendelenburg pattern using LRAD to indicate improved hip and lumbar stability. -met Pt to report 20% or less perceived disability on oswestry. -not met Target Visit 12 Progress Partially Met
--- NOTE | 2025-01-06 15:32 | PTOPDC ---
Assessment and note entered by Rashmi Kemp, PT Evaluation Information Assessment Status Discharge ICD-10 Condition Codes (PT) Pain in low back M54.50 Other ICD-10 Condition Codes ( M48.061 PT) Onset 11/01/22 Subjective Information Emilia reports feeling like her strength has improved greatly since beginning PT, however her pain is still present. Her pain is intermittent in nature and she occasionally experiences significant exacerbations in pain that prevent her from full performance of ADLs and functional tasks. She feels satisfied with her strength gains in therapy and feels like she has a good foundation to continue these exercises as well as techniques for pain reduction when she experiences a flare up. Reported Pain Level Pain Score 3: Self Report Assessment PT Clinical Summary Mrs. Simpson has attended 12 skilled PT visits for low back pain. She demonstrates good improvements in lower extremity and abdominal strength as well as improved ambulation characteristics with less significant trendelenburg pattern noted. While she continues to experience pain, she has been independent with her home exercise program and utilizes pain relief techniques such as TENS, hot pack and self massage. She will be discharged from therapy this date due to good progress in strength and functional mobility however it is recommended pt follow up with her MD and/or pain management for other methods of pain reduction. Plan of Care PT Services Indicated No
== END 2025-01-06 20:00 | disposition home or self-care (01) ==
LOC: CHSPT 10:57
PROVIDERS: Visit Provider Nurse Practitioner Family
DX: M54.50 Low back pain, unspecified (principal); M48.061 Spinal stenosis, lumbar region without neurogenic claudication
CPT/HCPCS: 97014; 97110; 97112; 97140; 97150; 97161; G0283

== ENCOUNTER 2025-01-24 07:38 | Outpatient (CLI) | payer MEDICARE, OTHER, SELFPAY ==
--- NOTE | ~2025-01-24 | DEXA_ITS ---
Bone Density Report Name: FRANKLIN ROBERTS Age: 74 Sex: Female Ethnicity: White Date of : 1950 Indication: osteopenia; height loss; Referring Provider: Isai Ly Study: Bone densitometry was performed. Exam Date: January 24, 2025 Accession number: [id number] Bone Density: Region BMD T-score Z-score Classification AP Spine(L1-L4) 0.990 -0.5 1.9 Normal Femoral Neck (Left) 0.668 -1.6 0.5 Osteopenia Total Hip (Left) 0.787 -1.3 0.5 Osteopenia Femoral Neck (Right) 0.675 -1.6 0.5 Osteopenia Total Hip (Right) 0.733 -1.7 0.1 Osteopenia Femoral Neck Mean 0.672 -1.6 0.5 Osteopenia Total Hip Mean 0.760 -1.5 0.3 Osteopenia World Health Organization criteria for BMD impression classify patients as: Normal (T-score at or above -1.0), Osteopenia (T-score between -1.0 and -2.5), or Osteoporosis (T-score at or below -2.5). 10-year Fracture Risk(1): Major Osteoporotic Fracture 12% Hip Fracture 2.5% Reported Risk Factors: [place] (), Neck BMD=0.668, BMI=25.7 (1) FRAX(R) Version 3.08. Fracture probability calculated for an untreated patient. Fracture probability may be lower if the patient has received treatment. Previous Exams: Region Exam Age BMD T-score BMD Change BMD Change Date g/cm2 vs Baseline vs Previous AP Spine (L1-L4) 01/24/2025 74 0.990 -0.5 0.045 (4.7%)# 0.045 (4.7%)# 11/28/2019 68 0.945 -0.9 Total Hip(Left) 01/24/2025 74 0.787 -1.3 -0.037 (-4.5%) -0.037 (-4.5%) 12/09/2021 71 0.824 -1.0 Total Hip(Right) 01/24/2025 74 0.733 -1.7 -0.029 (-3.8%) -0.029 (-3.8%) 12/09/2021 71 0.762 -1.5 *Denotes significance at 95% confidence level, LSC for AP Spine = 0.022 g/cm2, LSC for Total Hip = 0.027 g/cm2 # Denotes dissimilar scan types or analysis methods Clinical Information Provided by Patient: Has used the following medications: Vitamin D, Calcium Patient maximum height was 62 Menopause Age: 49 No regular weight bearing exercise Drinks caffeinated beverages Onset of menses at age 11 Number of children 1 Impression: The patient has low bone mass, based on the Right Total Hip T-score. The BMD for the Total Hip(Left) decreased, changing by -4.5% since the last DXA exam. The BMD for the Total Hip(Right) decreased, changing by -3.8% since the last DXA exam. Discussion: BONE DENSITY IS LOW AT ONE OR MORE SKELETAL SITES. This patient's lowest T-score is low at one or more skeletal sites. It meets the World Health Organization's (WHO) criteria for ?low bone mass? (T-score between -1.0 and -2.5). The patient's 10-year risk of fracture as calculated by FRAX is less than the threshold where pharmacological therapy is recommended by the National Osteoporosis Foundation (NOF). However, all treatment decisions require clinical judgment and consideration of individual patient factors, including patient preferences, comorbidities, previous drug use, risk factors not captured in the FRAX model (e.g., frailty, falls, vitamin D deficiency, increased bone turnover, interval significant decline in bone density) and possible under or overestimation of fracture risk by FRAX. The patient should follow a healthful lifestyle (good nutrition with adequate calcium and vitamin D, and appropriate weight-bearing exercise). Follow-Up: Consider repeating this study in 2 years to reassess this patient's status, or sooner if there is some new clinical indication. Reported by: RICHARD on 01/24/2025 9:17:00 AM. Reviewed, dictated and finalized at location A.
--- NOTE | ~2025-01-24 | US_ITS ---
ULTRASOUND ABDOMEN LIMITED (RIGHT UPPER QUADRANT) Clinical History: Abn LFTs, Osteopenia Comparison: None Technique: Right upper quadrant sonography Findings: Liver: Micronodular surface. Normal size. Echogenic. No intrahepatic biliary ductal dilatation. Normal hepatopedal flow main portal vein. 4 simple cysts identified, largest 4.4 cm. Common Duct: Normal caliber. 5 mm. Gallbladder: No stones. No wall thickening. No pericholecystic fluid. Pancreas: Unremarkable. Retrohepatic IVC: Unremarkable. IMPRESSION: 1. Probable cirrhosis. 2. Hepatic steatosis. 3. No acute abnormality. Reviewed, dictated and finalized at location R.
[2025-01-24 08:56] LABS: Alanine Aminotransferase 30 U/L (6-35); Albumin Level 4.5 g/dL (3.5-5.1); Alkaline Phosphatase 58 U/L (38-126); Anion Gap 8 mmol/L (4-12); Aspartate Amino Transferase 35 U/L (14-36); Bilirubin,Total 0.7 mg/dL (0.2-1.3); Blood Urea Nitrogen 25 mg/dL (7-17); Calcium 10.2 mg/dL (8.4-10.2); Carbon Dioxide 29 mmol/L (22-30); Chloride 104 mmol/L (98-107); Estimated Glomerular Filt Rate > 60; Glucose 87 mg/dL (65-110); Osmolality Calculated 295 mOsm/kg (285-295); Potassium 4.3 mmol/L (3.4-5.0); Sodium 141 mmol/L (137-145); Total Protein 7.8 g/dL (6.3-8.2)
== END 2025-01-24 07:39 | disposition home or self-care (01) ==
PROVIDERS: PCP Internal Medicine; Visit Provider Internal Medicine
DX: R94.5 Abnormal results of liver function studies (principal); Z78.0 Asymptomatic menopausal state; M85.89 Other specified disorders of bone density and structure, multiple sites; K76.0 Fatty (change of) liver, not elsewhere classified
CPT/HCPCS: 36415; 76705; 77080; 80053

== ENCOUNTER 2025-05-01 07:46 | Outpatient (CLI) | payer MEDICARE, OTHER, SELFPAY ==
--- OUTSIDE RECORDS SUMMARY | 2025-05-01 07:55 | XMS_ITS | Patient Health Record ---
Author Organization [facility] Address [address] [place], [place] [id number] Care Team Providers Care Dinkey Operator Slag Name Role Phone ROBY Agustin Unavailable [phone] Isai Ly Unavailable Unavailable Reason For Referral No Information Medications Medication SIG (Take, Route, Frequency, Duration) Notes Start Date End Date Status cholecalciferol 0.125 MG Oral Tablet ORAL cholecalciferol 0.125 MG Ora l TabletOriginal Medicationcholecalciferol 0.125 MG Oral Tablet *Reorder from [employer] for eRx and Interaction Alerts* 2019 Active omeprazole 10 MG Delayed Release Oral Capsule ORAL omeprazole 10 MG Delayed Release Oral CapsuleOriginal Medicationomeprazole 10 MG Delayed Release Oral Capsule *Reorder from [employer] for eRx and Interaction Alerts* 2019 Active 120 ACTUAT budesonide 0.16 MG/ACTUAT / formoterol fumarate 0.0045 MG/ACTUAT Metered Dose Inhaler [Symbicort] INTRAPULMONARY 120 ACTUAT budesonide 0.16 MG/ACTUAT / formoterol fumarate 0.0045 MG/ACTUAT Metered Dose Inhaler [Symbicort]Original [id number] ACTUAT budesonide 0.16 MG/ACTUAT / formoterol fumarate 0.0045 MG/ACTUAT Metered 2019 Active 4-aminobenzoate 500 MG Oral Capsule ORAL 4-aminobenzoate 500 MG Oral CapsuleOriginal Medication4-aminobenzoate 500 MG Oral Capsule *Reorder from [employer] for eRx and Interaction Alerts* 2019 Active 60 ACTUAT tiotropium 0.82347 MG/ACTUAT Inhalation [place] [Spiriva] INTRAPULMONARY 60 ACTUAT tiotropium 0.33159 MG/ACTUAT Inhalation [place] [Spiriva]Original [id number] ACTUAT tiotropium 0.77788 MG/ACTUAT Inhalation [place] [Spiriva] *Reorder from [facility] for eRx and Interaction Alerts* 2019 Active cholecalciferol 0.05 MG Oral Capsule ORAL cholecalciferol 0.05 MG Oral CapsuleOriginal Medicationcholecalciferol 0.05 MG Oral Capsule *Reorder from [facility] for eRx and Interaction Alerts* 2012 Active Losartan Potassium 25 MG Oral Tablet ORAL losartan potassium 25 MG Ora l TabletOriginal Medicationlosartan potassium 25 MG Oral Tablet *Reorder from [facility] for eRx and Interaction Alerts* 2019 Active Finasteride 1 MG Oral Tablet ORAL finasteride 1 MG Oral TabletOriginal Medicationfinasteride 1 MG Oral Tablet *Reorder from [facility] for eRx and Interaction Alerts* 2019 Active hydroCHLOROthiazide 12.5 MG Oral Tablet ORAL hydrochlorothiazide 12.5 MG Oral TabletOriginal Medicationhydrochlorothiazide 12.5 MG Oral Tablet *Reorder from [facility] for eRx and Interaction Alerts* 2019 Active Loratadine 10 MG Oral Capsule ORAL loratadine 10 MG Oral CapsuleOriginal Medicationloratadine 10 MG Oral Capsule *Reorder from [facility] for eRx and Interaction Alerts* 2019 Active Allopurinol 100 MG Oral Tablet ORAL allopurinol 100 MG Oral TabletOriginal Medicationallopurinol 100 MG Oral Tablet *Reorder from [facility] for eRx and Interaction Alerts* 2019 Active Lisinopril 20 MG Oral Tablet ORAL lisinopril 20 MG Oral TabletOriginal Medicationlisinopril 20 MG Oral Tablet [facility] 2012 Active Simvastatin 20 MG Oral Tablet ORAL simvastatin 20 MG Oral TabletOriginal Medicationsimvastatin 20 MG Oral Tablet *Reorder from [facility] for eRx and Interaction Alerts* 2019 Active Social History Social History Additional Details Category Social Info Options Details Migrated Social History Migrated Social History History of tobacco use : , Smoking Status : Never smoked , Alcohol intake : Plan Of Treatment No Information Insurance Providers Payer Name Payer Address Payer Phone Subscriber Number Group Number Insured Name Patient Relationship to Insured Coverage Start Date Coverage End Date Medicare Part B [place] [address] [place] [phone] [id number] FRANKLIN ROBERTS Self - patient is the insured [facility] [employer] [address] [address] [facility] [address] [id number] FRANKLIN ROBERTS Self - patient is the insured
[2025-05-01 08:41] LABS: Albumin Level 4.6 g/dL (3.5-5.1); Alkaline Phosphatase 66 U/L (38-126); Anion Gap 11 mmol/L (4-12); Bilirubin,Total 0.7 mg/dL (0.2-1.3); Blood Urea Nitrogen 20 mg/dL (7-17); Calcium 10.2 mg/dL (8.4-10.2); Carbon Dioxide 27 mmol/L (22-30); Chloride 105 mmol/L (98-107); Cholesterol 223 mg/dL (0-200); Estimated Glomerular Filt Rate 56; Glucose 88 mg/dL (65-110); Osmolality Calculated 297 mOsm/kg (285-295); Potassium 3.9 mmol/L (3.4-5.0); Sodium 143 mmol/L (137-145); Total Protein 7.0 g/dL (6.3-8.2); Triglycerides 114 mg/dL (<150)
[2025-05-01 08:42] LABS: Alanine Aminotransferase 29 U/L (6-35); Aspartate Amino Transferase 35 U/L (14-36)
[2025-05-01 08:54] LABS: HDL Direct > 110 mg/dL
== END 2025-05-01 07:47 | disposition home or self-care (01) ==
PROVIDERS: PCP Internal Medicine; Visit Provider Internal Medicine
DX: E78.5 Hyperlipidemia, unspecified (principal)
CPT/HCPCS: 36415; 80053; 80061